=== PATIENT | male | born 1965 | race African-American/Black ===

== ENCOUNTER 2017-01-05 13:30 | Emergency (ER) | payer BC, OTHER ==
[2017-01-05 13:43] VITALS: BP 154/97; PULSE 106; TEMP 98.4; BMI 32.7
[2017-01-05] MEDS ORDERED: KETOROLAC TROMETHAMINE 60 MG/2 ML VIAL IM ONE (14:37)
[2017-01-05] MEDS ORDERED: KETOROLAC TROMETHAMINE 60 MG/2 ML VIAL ONE (14:40)
--- NOTE | 2017-01-05 14:42 | PDOC ---
History of Present Illness - General Chief Complaint: Pain, Acute Stated Complaint: LEG PAIN Time Seen by Provider: 01/05/17 14:18 History Source: Patient Exam Limitations: No Limitations - History of Present Illness Occurred: reports: yesterday Severity: reports: mild, moderate Pain Location: reports: lower extremity (left thigh) Method of Injury: Yes: fall (slipped and stretched posterior aspect ) Loss of Consciousness: no loss of consciousness Past History - Travel Traveled outside of the country in the last 30 days: No Close contact w/someone who was outside of country & ill: No - Past Medical History Allergies/Adverse Reactions: Allergies Allergy/AdvReac Type Severity Reaction Status Date / Time No Known Drug Allergies Allergy Verified 01/05/17 13:40 Home Medications: Ambulatory Orders Aspirin [ASA -] 81 mg PO DAILY 05/27/14 Amlodipine Besylate [Norvasc -] 10 mg PO DAILY tablet 06/03/14 Metoprolol Succinate [Toprol XL -] 25 mg PO BID tab.sr.24h 06/03/14 Sertraline HCl [Zoloft -] 150 mg PO DAILY tablet 06/03/14 Atorvastatin Ca [Lipitor] 20 mg PO HS tablet 08/13/15 Insulin Glargine,Hum.rec.anlog [Toujeo Solostar] 35 unit SQ BID #0 08/13/15 Ciprofloxacin HCl 500 mg PO BID #90 tablet 10/20/15 Vancomycin 1 Gram (Pre-Docked) [Vancomycin (Pre-Docked)] 1,000 mg IVPB Q12H #90 bag 10/20/15 Oxycodone HCl/Acetaminophen [Percocet 5-325 mg Tablet] 1 - 2 tab PO Q4H PRN #14 tablet MDD 6 01/05/17 Anemia: No Asthma: No Cancer: No Cardiac Disorders: No CVA: No COPD: No CHF: No Dementia: No Diabetes: Yes (IDDM) GI Disorders: No Disorders: No HTN: Yes Hypercholesterolemia: Yes Liver Disease: No Seizures: No Thyroid Disease: No Lung CA: No - Surgical History Abdominal Surgery: No Appendectomy: No Cardiac Surgery: No Cholecystectomy: No Lung Surgery: No Neurologic Surgery: No Orthopedic Surgery: Yes (LEFT MIDDLE TOE OSTEOMYELITIS) - Immunization History Td Vaccination: Yes Immunization Up to Date: Yes - Suicide/Smoking/Psychosocial Hx Smoking Status: No Smoking History: Never smoked Have you smoked in the past 12 months: No Number of Cigarettes Smoked Daily: 0 Information on smoking cessation initiated: No Hx Alcohol Use: No Drug/Substance Use Hx: No Substance Use Type: None Hx Substance Use Treatment: No Trauma Specific PMHX - Complaint Specific PMHX Arthritis: Yes Back Injury: Yes Review of Systems - Review of Systems Able to Perform ROS?: Yes Is the patient limited Hungarian proficient: Yes Constitutional: Yes: Symptoms Reported, See HPI. No: Fever, Malaise HEENTM: No: Symptoms Reported Respiratory: No: Symptoms reported Musculoskeletal: Yes: Symptoms Reported, See HPI, Muscle Pain, Joint Stiffness Integumentary: Yes: See HPI. No: Symptoms Reported All Other Systems: Reviewed and Negative *Physical Exam - Vital Signs Last Vital Signs Temp Pulse Resp BP Pulse Ox 98.4 F 106 H 15 154/97 97 01/05/17 13:40 01/05/17 13:40 01/05/17 13:40 01/05/17 13:40 01/05/17 13:40 - Physical Exam General Appearance: Yes: Nourished, Appropriately Dressed, Apparent Distress, Mild Distress, Moderate Distress HEENT: positive: [place], Normal ENT Inspection, TMs Normal, Pharynx Normal Neck: negative: Tender Respiratory/Chest: positive: Lungs Clear Musculoskeletal: positive: Normal Inspection, Decreased Range of Motion (due to pain with extension of left upper posterior thigh, no tension or evidence of compartment syndrome, neurovasc intact to foot ) Extremity: positive: Normal Capillary Refill. negative: Normal Inspection, Normal Range of Motion Integumentary: positive: Normal Color, Dry, Warm. negative: Swelling (no firm/ tenseness to hamstring or muscle belly. 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 Will give 14 Percocet tabs. *DC/Admit/Observation/Transfer Diagnosis at time of Disposition: Hamstring muscle strain Qualifiers: Encounter type: initial encounter Laterality: left Qualified Code(s): S76.312A - Strain of muscle, fascia and tendon of the posterior muscle group at thigh level, left thigh, initial encounter - Discharge Dispostion Disposition: HOME Condition at time of disposition: Stable Admit: No - Referrals Referrals: Benjamin Oneal MD [Primary Care Provider] - - Patient Instructions Printed Discharge Instructions: DI for Hamstring Strain Additional Instructions: Rest, ice to area on and off for 15 minutes 4-6 times a day Avoid heavy lifting or exercise until pain and swelling is resolved or until further directed Keep area highly elevated to reduce swelling Use splints/Daniel wrap as directed Followup with orthopedist in one to 2 days if not improving, if significantly improved may wait one week for followup with orthopedist May use ibuprofen 2-200 mg tablets every 6 hours as needed for pain May use Percocet one or 2 tablets every 6 hours for severe pain as needed - Post Discharge Activity Forms/Work/School Notes: Back to Work
== END 2017-01-05 15:05 | disposition home or self-care (01) ==
LOC: JERFT 13:30
PROC: 3E0233Z Introduction of Anti-inflammatory into Muscle, Percutaneous Approach (ICD-10-PCS; principal; 2017-01-05)
DX: S76.312A Strain of muscle, fascia and tendon of the posterior muscle group at thigh level, left thigh, initial encounter (principal); W01.0XXA Fall on same level from slipping, tripping and stumbling without subsequent striking against object, initial encounter; Y93.79 Activity, other specified sports and athletics; Y92.39 Other specified sports and athletic area as the place of occurrence of the external cause; Y99.8 Other external cause status; I10 Essential (primary) hypertension; E11.9 Type 2 diabetes mellitus without complications; Z79.4 Long term (current) use of insulin; E78.00 Pure hypercholesterolemia, unspecified
CPT/HCPCS: 96372; 99281-25

== ENCOUNTER 2017-01-08 18:49 | Emergency (ER) | payer OTHER ==
[2017-01-08 18:56] VITALS: BP 152/120; PULSE 109; TEMP 97.6; BMI 32.7
--- NOTE | 2017-01-08 19:58 | PDOC ---
History of Present Illness - History of Present Illness Initial Comments: 01/08/17 20:52 Patient is a 51 year old male with a significant past medical history of Peripheral Neuropathy (PAS), HTN, Hyperlipidemia,mrsa wound infections, osteomyelitis,Diabetes Mellitus (Insulin dependent) who presents to the ED s/p fall that occurred 3 days ago. Patient reports fall occurred 3 days [place]. He reports falling on a slippery floor causing him to do a split with his legs, stating that his left leg went forward and right leg backwards. Patient states left leg pain a 20/10 in intensity and is localized behind left thigh and is increased with any kind of stimulus to affected area. He reports experiencing lower left back pain secondary to fall. Patient was seen at [facility] ED on 01/05/17 and was prescribed Percocet and cyclobenzaprine by DISTRICT COURT REPORTER for same pain. Patient states taking percocet and muscle relaxer for pain with no relief. He reports being unable to walk due to left leg pain. Patient denies any current numbness but states affected area was numb after initial fall. Denies Denies chest pain, SOB. Denies fever, chills. Denies nausea, vomiting. Denies dysuria, constipation, diarrhea. Denies any other symptoms. Allergies: None Social history: No smoking. No alcohol. No illicit drugs. FHx: Mother (alcohol) , Heart Disease: Mother Surgical history: Amputation (Left big toe) PMD: Dr. Oneal <Heber Marshall - Last Filed: 01/08/17 21:48> - General History Source: Patient Exam Limitations: No Limitations - History of Present Illness Initial Comments: 01/08/17 19:54 01/08/17 20:20 01/08/17 22:03 Occurred: reports: other (01/05/17) Severity: reports: severe Pain Location: reports: back (left lower back/buttock ), lower extremity (left posterior thigh/ left lower back buttock ) Method of Injury: Yes: fall Loss of Consciousness: no loss of consciousness Associated Symptoms (Fall): trouble walking, other (left lower back/ left buttock pain , left posterior thigh ) <Marina Munson - Last Filed: 01/08/17 22:40> - General Chief Complaint: Injury Stated Complaint: LEG PAIN Time Seen by Provider: 01/08/17 19:42 Past History <Heber Marshall - Last Filed: 01/08/17 21:48> - Past Medical History Anemia: No Asthma: No Cancer: No Cardiac Disorders: No CVA: No COPD: No CHF: No DVT: No Dementia: No Diabetes: Yes (IDDM) GI Disorders: No Disorders: No HTN: Yes Hypercholesterolemia: Yes Liver Disease: No Seizures: No Thyroid Disease: No Lung CA: No - Surgical History Abdominal Surgery: No Appendectomy: No Cardiac Surgery: No Cholecystectomy: No Lung Surgery: No Neurologic Surgery: No Orthopedic Surgery: Yes (LEFT MIDDLE TOE OSTEOMYELITIS) - Immunization History Td Vaccination: Yes Immunization Up to Date: Yes - Suicide/Smoking/Psychosocial Hx Smoking Status: No Smoking History: Never smoked Have you smoked in the past 12 months: No Number of Cigarettes Smoked Daily: 0 Information on smoking cessation initiated: No Hx Alcohol Use: No Drug/Substance Use Hx: No Substance Use Type: None Hx Substance Use Treatment: No <Marina Munson - Last Filed: 01/08/17 22:40> - Past Medical History Allergies/Adverse Reactions: Allergies Allergy/AdvReac Type Severity Reaction Status Date / Time No Known Drug Allergies Allergy Verified 01/08/17 18:51 Home Medications: Ambulatory Orders Aspirin [ASA -] 81 mg PO DAILY 05/27/14 Amlodipine Besylate [Norvasc -] 10 mg PO DAILY tablet 06/03/14 Metoprolol Succinate [Toprol XL -] 25 mg PO BID tab.sr.24h 06/03/14 Sertraline HCl [Zoloft -] 150 mg PO DAILY tablet 06/03/14 Atorvastatin Ca [Lipitor] 20 mg PO HS tablet 08/13/15 Insulin Glargine,Hum.rec.anlog [Tourobert Solostar] 35 unit SQ BID #0 08/13/15 Oxycodone HCl/Acetaminophen [Percocet 5-325 mg Tablet] 1 - 2 tab PO Q4H PRN #14 tablet MDD 6 01/05/17 Cyclobenzaprine HCl [Flexeril 10 mg] 10 mg PO BID PRN #14 tablet 01/06/17 Ibuprofen [Motrin -] 400 mg PO Q6H PRN #18 tablet MDD 4 01/08/17 Trauma Specific PMHX - Complaint Specific PMHX Arthritis: Yes Back Injury: Yes <ArpitMarina manriquez - Last Filed: 01/08/17 22:40> Review of Systems - Review of Systems Able to Perform ROS?: Yes Comments:: 01/08/17 20:52 GENERAL/CONSTITUTIONAL: No fever or chills. No weakness. HEAD, EYES, EARS, NOSE AND THROAT: No change in vision. No ear pain or discharge. No sore throat. GASTROINTESTINAL: No nausea, vomiting, diarrhea or constipation. GENITOURINARY: No dysuria, frequency, or change in urination. CARDIOVASCULAR: No chest pain or shortness of breath. RESPIRATORY: No cough, wheezing, or hemoptysis. MUSCULOSKELETAL: +Left posterior thigh pain. +Left lower back pain. Left buttock pain. No joint or muscle swelling. No neck SKIN: No rash NEUROLOGIC: No headache, vertigo, loss of consciousness, or change in strength/ sensation. ENDOCRINE: No increased thirst. No abnormal weight change. HEMATOLOGIC/LYMPHATIC: No anemia, easy bleeding, or history of blood clots. ALLERGIC/IMMUNOLOGIC: No hives or skin allergy. 01/08/17 21:43 All Other Systems: Reviewed and Negative <Heber Marshall - Last Filed: 01/08/17 21:48> *Physical Exam - Vital Signs Last Vital Signs Temp Pulse Resp BP Pulse Ox 97.6 F 109 H 18 152/120 100 01/08/17 18:51 01/08/17 18:51 01/08/17 18:51 01/08/17 18:51 01/08/17 18:51 - Physical Exam Comments: 01/08/17 20:52 GENERAL: Awake, alert, and fully oriented, in no acute distress HEAD: No signs of trauma EYES: PERRLA, EOMI, sclera anicteric, conjunctiva clear ENT: Auricles normal inspection, hearing grossly normal, nares patent, oropharynx clear without exudates. Moist mucosa NECK: Normal ROM, supple, no lymphadenopathy, JVD, or masses LUNGS: Breath sounds equal, clear to auscultation bilaterally. No wheezes, and no crackles HEART: Regular rate and rhythm, normal S1 and S2, no murmurs, rubs or gallops ABDOMEN: Soft, nontender, normoactive bowel sounds. No guarding, no rebound. No masses EXTREMITIES: +Posterior left thigh pain. +Left lower back pain. +Left buttock pain. Normal range of motion, no edema. No clubbing or cyanosis. No cords, erythema. NEUROLOGICAL: Cranial nerves II through XII grossly intact. Normal speech. SKIN: Warm, Dry, normal turgor, no rashes or lesions noted. <Heber Marshall - Last Filed: 01/08/17 21:48> - Vital Signs Last Vital Signs Temp Pulse Resp BP Pulse Ox 97.6 F 109 H 18 152/120 100 01/08/17 18:51 01/08/17 18:51 01/08/17 18:51 01/08/17 18:51 01/08/17 18:51 <Marina Munson - Last Filed: 01/08/17 22:40> Medical Decision Making - Medical Decision Making 01/08/17 22:05 left posterior thigh strain left lower back strain PLAN: toradol 30 mg IM now 'Patient after approximately 35-45 minutes patient reporting that he was able to move left leg much better extension of his left leg while lying down Patient given instructions to follow up with orthopedist for further evaluation tomorrow and to take ibuprofen 400 mg every 6 hours as needed to start tomorrow. When patient attempted to get into the wheelchair for discharge patient started to complain of pain in his left thigh and lied back down on the stretcher in exam room Acetaminophen 1000 mg by mouth now given (patient only took 2 tabs of Percocet today total of 650 mg of acetaminophen 01/08/17 22:37 01/08/17 22:39 reviewed note by Joni Marshall it was deemed to be accurate <Marina Munson - Last Filed: 01/08/17 22:40> *DC/Admit/Observation/Transfer - Attestations Scribe Attestion: 01/08/17 20:54 Documentation prepared by Heber Marshall, acting as territory sales manager medical for Emergency Dept,Physician, /. <Heber Marshall - Last Filed: 01/08/17 21:48> <Marina Munson - Last Filed: 01/08/17 22:40> Diagnosis at time of Disposition: Strain of other specified muscles, fascia and tendons at thigh level, left thigh, initial encounter Low back strain Qualifiers: Encounter type: subsequent encounter Qualified Code(s): S39.012D - Strain of muscle, fascia and tendon of lower back, subsequent encounter - Discharge Dispostion Disposition: HOME Condition at time of disposition: Stable - Prescriptions Prescriptions: Ibuprofen [Motrin -] 400 mg PO Q6H PRN #18 tablet MDD 4 PRN Reason: Pain - Referrals Referrals: Benjamin Oneal MD [Primary Care Provider] - Torsten Mccarty MD [Staff Physician] - - Patient Instructions Additional Instructions: You may take ibuprofen 200 mg up to 2 tabs every 6 hours as needed for pain along with cyclobenzaprine that was ordered for you on 01/05/2017 Follow up with orthopedist tomorrow for further evaluation as soon as possible You need to try to stretch your left thigh a few times a day Return to emergency room only if pain continues to worsen or new symptoms develop Patient voiced understanding of discharge instructions and all questions were answered - Post Discharge Activity
[2017-01-08] MEDS ORDERED: KETOROLAC TROMETHAMINE 60 MG/2 ML VIAL IM ONE (20:23)
[2017-01-08] MEDS ORDERED: KETOROLAC TROMETHAMINE 30 MG/1 ML VIAL ONE (20:30)
[2017-01-08] MEDS ORDERED: ACETAMINOPHEN 500 MG TABLET (FP) ONE (21:49)
[2017-01-08] MEDS ORDERED: ACETAMINOPHEN 500 MG TABLET (FP) PO ONE (22:02)
== END 2017-01-08 22:25 | disposition home or self-care (01) ==
LOC: JERFT 18:49
PROC: 3E0233Z Introduction of Anti-inflammatory into Muscle, Percutaneous Approach (ICD-10-PCS; principal; 2017-01-08)
DX: S39.012D Strain of muscle, fascia and tendon of lower back, subsequent encounter (principal); S76.812D Strain of other specified muscles, fascia and tendons at thigh level, left thigh, subsequent encounter; W01.0XXD Fall on same level from slipping, tripping and stumbling without subsequent striking against object, subsequent encounter; Y93.89 Activity, other specified; Y92.39 Other specified sports and athletic area as the place of occurrence of the external cause; Y99.8 Other external cause status; I10 Essential (primary) hypertension; E10.9 Type 1 diabetes mellitus without complications; Z79.4 Long term (current) use of insulin; E78.00 Pure hypercholesterolemia, unspecified; Z86.14 Personal history of Methicillin resistant Staphylococcus aureus infection; Z89.412 Acquired absence of left great toe; G62.9 Polyneuropathy, unspecified
CPT/HCPCS: 96372; 99281-25

== ENCOUNTER 2017-02-06 14:24 | Inpatient (IN) | payer OTHER ==
[2017-02-06 15:00] VITALS: BMI 32.7
--- NOTE | 2017-02-06 15:00 | PDOC ---
Rapid Medical Evaluation Time Seen by Provider: 02/06/17 14:48 Medical Evaluation: Allergies Allergy/AdvReac Type Severity Reaction Status Date / Time No Known Drug Allergies Allergy Verified 02/06/17 14:47 02/06/17 14:55 I have performed a brief in-person evaluation of this patient. The patient presents with a chief complaint of: N/V x 4-5 days. No abd pain, f/ c. Also c/o wound to R leg, sees a ehr trainer and currently on abx x several weeks w/ improvement in wound. (don't remember the abx name). H/o IDDM, HTN. F/ u with Dr Oneal Pertinent physical exam findings: Hypertensive, tachycardic and actively vomiting at triage I have ordered the following:labs The patient will proceed to the ED for further evaluation.
[2017-02-06 15:53] LABS: BASO % 1.2 % (0-2.0); EOS % 2.3 % (0-4.5); HEMATOCRIT 35.1 % (35.4-49); HEMOGLOBIN 11.4 GM/dL (11.7-16.9); LYMPH % 28.5 % (8-40); MCH 26.3 pg (25.7-33.7); MCHC 32.5 g/dl (32.0-35.9); MEAN CELL VOLUME 80.8 fl (80-96); MEAN PLT VOLUME 8.5 fl (7.5-11.1); MONO % 6.5 % (3.8-10.2); NEUT % 61.5 % (42.8-82.8); PLATELET COUNT 325 K/MM3 (134-434); RBC 4.34 M/mm3 (4.00-5.60); RDW 14.2 % (11.9-15.9); WHITE BLOOD COUNT 5.7 K/mm3 (4.0-10.0)
[2017-02-06 16:22] LABS: ALBUMIN 3.4 g/dl (3.4-5.0); ANION GAP 11 (8-16); BILIRUBIN,TOTAL 0.6 mg/dL (0.2-1.0); BLOOD UREA NITROGEN 34 mg/dL (7-18); CALCIUM 10.5 mg/dL (8.5-10.1); CHLORIDE 100 mmol/L (98-107); CO2 27 mmol/L (21-32); LIPASE 62 U/L (73-393); POTASSIUM 4.5 mmol/L (3.5-5.1); SGOT/AST 12 U/L (15-37); SGPT/ALT 23 U/L (12-78); SODIUM 138 mmol/L (136-145); TOT PROT 8.1 g/dl (6.4-8.2)
[2017-02-06 16:25] LABS: ALK PHOS 105 U/L (45-117)
[2017-02-06 16:27] LABS: URINE APPEARANCE CLEAR; URINE BILIRUBIN NEGATIVE (NEGATIVE); URINE BLOOD NEGATIVE (NEGATIVE); URINE COLOR YELLOW; URINE GLUCOSE (UA) 3+ (NEGATIVE); URINE KETONE 1+ (NEGATIVE); URINE LEUK ESTERASE NEGATIVE (NEGATIVE); URINE NITRITE NEGATIVE (NEGATIVE); URINE UROBILINOGEN NEGATIVE mg/dL (0.2-1.0)
[2017-02-06 16:39] LABS: GLUCOSE,RANDOM 410 mg/dL (74-106)
[2017-02-06 16:40] LABS: URINE PROTEIN 1+ (NEGATIVE)
[2017-02-06 17:12] LABS: URINE MUCUS RARE
--- NOTE | 2017-02-06 19:05 | PDOC ---
History of Present Illness - General History Source: Patient Exam Limitations: No Limitations - History of Present Illness Initial Comments: 02/06/17 19:40 Patient is a 51 year old male with a significant past medical history of Peripheral Neuropathy (PAS), HTN, Hyperlipidemia, mrsa wound infections, osteomyelitis, Diabetes (insulin dependent), s/p right big toe amputation who presents to the ED with complaints of nausea/vomiting that began this morning. Patient reports experiencing x10 episodes of vomiting today that began this morning while at home. He reports having a infection on his lower right leg but is unsure if that is related to his vomiting. Patient states his blood sugar normally does not run high and states its usually around 100 to 200. Patient reports he currently does not feel any pain while in the ED. Patient appears dehydrated while sitting in the ED. Denies chest pain, SOB. Denies fever, chills. Denies contact with sick individuals, out of state travel. Denies any other symptoms. Allergies: None Social history: No smoking. No alcohol. No illicit drugs. Surgical history: Right big toe amputation. PMD: Dr. Oneal. Wound care: Dr. Fulton <Heber Marshall - Last Filed: 02/06/17 19:40> <Fidelia Harden - Last Filed: 02/06/17 23:33> - General Chief Complaint: Nausea/Vomiting Stated Complaint: THROWING UP Time Seen by Provider: 02/06/17 14:48 Past History <Heber Marshall - Last Filed: 02/06/17 19:40> - Past Medical History Anemia: No Asthma: No Cancer: No Cardiac Disorders: No CVA: No COPD: No CHF: No DVT: No Dementia: No Diabetes: Yes (IDDM) GI Disorders: No Disorders: No HTN: Yes Hypercholesterolemia: Yes Liver Disease: No Seizures: No Thyroid Disease: No Lung CA: No - Surgical History Abdominal Surgery: No Appendectomy: No Cardiac Surgery: No Cholecystectomy: No Lung Surgery: No Neurologic Surgery: No Orthopedic Surgery: Yes (LEFT MIDDLE TOE OSTEOMYELITIS) - Immunization History Td Vaccination: Yes Immunization Up to Date: Yes - Suicide/Smoking/Psychosocial Hx Smoking Status: No Smoking History: Never smoked Have you smoked in the past 12 months: No Number of Cigarettes Smoked Daily: 0 Hx Alcohol Use: No Drug/Substance Use Hx: No Substance Use Type: None Hx Substance Use Treatment: No <Fidelia Harden - Last Filed: 02/06/17 23:33> - Past Medical History Allergies/Adverse Reactions: Allergies Allergy/AdvReac Type Severity Reaction Status Date / Time No Known Drug Allergies Allergy Verified 02/06/17 14:47 Home Medications: Ambulatory Orders Aspirin [ASA -] 81 mg PO DAILY 05/27/14 Amlodipine Besylate [Norvasc -] 10 mg PO DAILY tablet 06/03/14 Metoprolol Succinate [Toprol XL -] 25 mg PO BID tab.sr.24h 06/03/14 Sertraline HCl [Zoloft -] 150 mg PO DAILY tablet 06/03/14 Atorvastatin Ca [Lipitor] 20 mg PO HS tablet 08/13/15 Insulin Glargine,Hum.rec.anlog [Toujeo Solostar] 35 unit SQ BID #0 08/13/15 Oxycodone HCl/Acetaminophen [Percocet 5-325 mg Tablet] 1 - 2 tab PO Q4H PRN #14 tablet MDD 6 01/05/17 Cyclobenzaprine HCl [Flexeril 10 mg] 10 mg PO BID PRN #14 tablet 01/06/17 Ibuprofen [Motrin -] 400 mg PO Q6H PRN #18 tablet MDD 4 01/08/17 Review of Systems - Review of Systems Able to Perform ROS?: Yes Comments:: 02/06/17 19:40 GENERAL/CONSTITUTIONAL: No fever or chills. No weakness. HEAD, EYES, EARS, NOSE AND THROAT: No change in vision. No ear pain or discharge. No sore throat. GASTROINTESTINAL: +Nausea, +Vomiting. No diarrhea or constipation. GENITOURINARY: No dysuria, frequency, or change in urination. CARDIOVASCULAR: No chest pain or shortness of breath. RESPIRATORY: No cough, wheezing, or hemoptysis. MUSCULOSKELETAL: No joint or muscle swelling or pain. No neck or back pain. SKIN: +Right leg wound NEUROLOGIC: No headache, vertigo, loss of consciousness, or change in strength/ sensation. ENDOCRINE: No increased thirst. No abnormal weight change. HEMATOLOGIC/LYMPHATIC: No anemia, easy bleeding, or history of blood clots. ALLERGIC/IMMUNOLOGIC: No hives or skin allergy. All Other Systems: Reviewed and Negative <Heber Marshall - Last Filed: 02/06/17 19:40> *Physical Exam - Vital Signs Last Vital Signs Temp Pulse Resp BP Pulse Ox 98.4 F 114 H 19 158/129 100 02/06/17 14:54 02/06/17 14:54 02/06/17 14:54 02/06/17 14:54 02/06/17 14:54 - Physical Exam Comments: 02/06/17 19:41 GENERAL: Awake, alert, and fully oriented, in no acute distress HEAD: No signs of trauma EYES: PERRLA, EOMI, sclera anicteric, conjunctiva clear ENT: +Dry mucous membrane. Auricles normal inspection, hearing grossly normal, nares patent, oropharynx clear without exudates. NECK: Normal ROM, supple, no lymphadenopathy, JVD, or masses LUNGS: Breath sounds equal, clear to auscultation bilaterally. No wheezes, and no crackles HEART: Regular rate and rhythm, normal S1 and S2, no murmurs, rubs or gallops ABDOMEN: Soft, nontender, normoactive bowel sounds. No guarding, no rebound. No masses EXTREMITIES: +Right lower leg s/p first toe amputation well healed. +3 skin lesion to right lower leg. Normal range of motion, no edema. No clubbing or cyanosis. No cords, erythema, or tenderness NEUROLOGICAL: Cranial nerves II through XII grossly intact. Normal speech, SKIN: +3 skin lesions to right lower leg. +2 skin lesions well healed. +1 skin lesion actively draining. +Surrounding cellulitis. +Drainage of pleural material. No fluctuance. Warm, Dry, normal turgor, no rashes or lesions noted. <Heber Marshall - Last Filed: 02/06/17 19:40> - Vital Signs Last Vital Signs Temp Pulse Resp BP Pulse Ox 98.4 F 114 H 19 158/129 100 02/06/17 14:54 02/06/17 14:54 02/06/17 14:54 02/06/17 14:54 02/06/17 14:54 <Fidelia Harden - Last Filed: 02/06/17 23:33> ED Treatment Course - LABORATORY CBC & Chemistry Diagram: 02/06/17 15:25 02/06/17 15:25 - ADDITIONAL ORDERS Additional order review: Laboratory Results 02/06/17 02/06/17 16:10 15:25 Sodium 138 Potassium 4.5 Chloride 100 Carbon Dioxide 27 Anion Gap 11 BUN 34 H Creatinine 2.0 H D Creat Clearance w eGFR 35.40 Random Glucose 410 H* D Calcium 10.5 H Total Bilirubin 0.6 D AST 12 L ALT 23 Alkaline Phosphatase 105 D Creatine Kinase 120 Troponin I < 0.02 Total Protein 8.1 Albumin 3.4 Lipase 62 L Urine Color Yellow Urine Appearance Clear Urine pH 5.0 Ur Specific [place] 1.029 Urine Protein 1+ H Urine Glucose (UA) 3+ H Urine Ketones 1+ H Urine Blood Negative Urine Nitrite Negative Urine Bilirubin Negative Urine Urobilinogen Negative Urine WBC (Auto) 1 Urine RBC (Auto) 1 Urine Mucus Rare 02/06/17 15:25 RBC 4.34 MCV 80.8 MCHC 32.5 RDW 14.2 MPV 8.5 Neutrophils % 61.5 D Lymphocytes % 28.5 D Monocytes % 6.5 Eosinophils % 2.3 Basophils % 1.2 <Heber Marshall - Last Filed: 02/06/17 19:40> - LABORATORY CBC & Chemistry Diagram: 02/06/17 15:25 02/06/17 15:25 - ADDITIONAL ORDERS Additional order review: Laboratory Results 02/06/17 02/06/17 16:10 15:25 Sodium 138 Potassium 4.5 Chloride 100 Carbon Dioxide 27 Anion Gap 11 BUN 34 H Creatinine 2.0 H D Creat Clearance w eGFR 35.40 Random Glucose 410 H* D Calcium 10.5 H Total Bilirubin 0.6 D AST 12 L ALT 23 Alkaline Phosphatase 105 D Creatine Kinase 120 Troponin I < 0.02 Total Protein 8.1 Albumin 3.4 Lipase 62 L Urine Color Yellow Urine Appearance Clear Urine pH 5.0 Ur Specific [place] 1.029 Urine Protein 1+ H Urine Glucose (UA) 3+ H Urine Ketones 1+ H Urine Blood Negative Urine Nitrite Negative Urine Bilirubin Negative Urine Urobilinogen Negative Urine WBC (Auto) 1 Urine RBC (Auto) 1 Urine Mucus Rare 02/06/17 15:25 RBC 4.34 MCV 80.8 MCHC 32.5 RDW 14.2 MPV 8.5 Neutrophils % 61.5 D Lymphocytes % 28.5 D Monocytes % 6.5 Eosinophils % 2.3 Basophils % 1.2 <Fidelia Harden - Last Filed: 02/06/17 23:33> Medical Decision Making - Medical Decision Making Pt with an open, draining lesion to the R velazquez. He has history of neuropathy and poor circulation, as well as diabetes. He has failed outpatient abx, now presenting with elevated blood glucose and nausea/vomiting. HbA1C pending. Given vanco/zosyn. Wound was cultured in ED prior to abx. <Fidelia Harden - Last Filed: 02/06/17 23:33> *DC/Admit/Observation/Transfer - Attestations Scribe Attestion: 02/06/17 19:41 Documentation prepared by Heber Marshall, acting as medical imaging specialist for Fidelia Harden MD, /DO. <Heber Marshall - Last Filed: 02/06/17 19:40> - Discharge Dispostion Admit: Yes <Fidelia Harden - Last Filed: 02/06/17 23:33> Diagnosis at time of Disposition: Cellulitis, Diabetic ulcer of lower leg - Discharge Dispostion Condition at time of disposition: Stable
[2017-02-06] MEDS ORDERED: PIPERACILLIN/TAZOB 3.375 GM 50 ML IVPB ONE (19:17)
[2017-02-06] MEDS ORDERED: ONDANSETRON 4 MG/2 ML VIAL IVPUSH ONE (19:18)
[2017-02-06] MEDS ORDERED: SODIUM CHLORIDE 3,000 ML IV STA (19:18)
[2017-02-06] MEDS ORDERED: INSULIN REGULAR HUMAN 100 UNITS/ML *VIAL SQ ONE (19:20)
[2017-02-06] MEDS ORDERED: PIPERACILLIN/TAZOB 3.375 GM 3.375 GM/50 ML BAG IVPB ONE (19:38)
[2017-02-06] MEDS ORDERED: ONDANSETRON 4 MG/2 ML VIAL ONE ×2 (19:38→20:36)
[2017-02-06] MEDS ORDERED: VANCOMYCIN 1 GRAM (PRE-DOCKED) 1,000 MG/250 ML BAG IVPB ONE ×2 (20:36→20:37)
[2017-02-06] MEDS ORDERED: INSULIN REGULAR HUMAN 100 UNITS/ML *VIAL ONE (20:36)
--- NOTE | 2017-02-06 21:24 | HP ---
Admitting History and Physical - Primary Care Physician PCP: Benjamin Oneal - Admission Chief Complaint: Nausea and Vomiting History of Present Illness: This is a 51 y/o man with a past medical history of Peripheral Neuropathy, IDDM , MRSA, Diabetic Ulcers. Who presents to the ED with nausea and vomiting x 10 episodes x am. Patient reports having an infection to his right lower leg with yellow drainage that started 1 week ago, in which he is seeing a mastic man and is being treated he has been on ABXs, but does not recall the name of the med. Patient reports his blood sugars are usually between 100-200. He reports that he is compliant with his medications. 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) Cardiovascular: Yes: HTN, Hyperlipdemia Infectious Disease: Yes: MRSA, Other (MRSA wound infections, osteomyelitis ) Psych: Yes: Depression Endocrine: Yes: Diabetes Mellitus - Past Surgical History Past Surgical History: Yes: Amputation - Smoking History Smoking history: Never smoked Have you smoked in the past 12 months: No Aproximately how many cigarettes per day: 0 - Alcohol/Substance Use Hx Alcohol Use: No History of Substance Use: reports: None - Social History History of Recent Travel: No Home Medications - Allergies Allergies/Adverse Reactions: Allergies Allergy/AdvReac Type Severity Reaction Status Date / Time No Known Drug Allergies Allergy Verified 02/06/17 14:47 - Home Medications Home Medications: Ambulatory Orders Aspirin [ASA -] 81 mg PO DAILY 05/27/14 Amlodipine Besylate [Norvasc -] 10 mg PO DAILY tablet 06/03/14 Metoprolol Succinate [Toprol XL -] 25 mg PO BID tab.sr.24h 06/03/14 Sertraline HCl [Zoloft -] 150 mg PO DAILY tablet 06/03/14 Atorvastatin Ca [Lipitor] 20 mg PO HS tablet 08/13/15 Insulin Glargine,Hum.rec.anlog [Kamilah Valdes] 35 unit SQ BID #0 08/13/15 Oxycodone HCl/Acetaminophen [Percocet 5-325 mg Tablet] 1 - 2 tab PO Q4H PRN #14 tablet MDD 6 01/05/17 Cyclobenzaprine HCl [Flexeril 10 mg] 10 mg PO BID PRN #14 tablet 01/06/17 Ibuprofen [Motrin -] 400 mg PO Q6H PRN #18 tablet MDD 4 01/08/17 Family Disease History - Family Disease History Family Disease History: Diabetes: Mother (alcohol), Heart Disease: Mother Review of Systems - Review of Systems Constitutional: reports: No Symptoms Eyes: reports: No Symptoms HENT: reports: No Symptoms Neck: reports: No Symptoms Cardiovascular: reports: No Symptoms Respiratory: reports: No Symptoms Gastrointestinal: reports: Nausea, Vomiting Genitourinary: reports: No Symptoms Breasts: reports: No Symptoms Reported Musculoskeletal: reports: No Symptoms Integumentary: reports: Wound (left leg) Neurological: reports: No Symptoms Endocrine: reports: Increased Thirst Hematology/Lymphatic: reports: No Symptoms Psychiatric: reports: No Symptoms Physical Examination Vital Signs: Vital Signs Temperature 98.4 F 02/06/17 14:54 Pulse Rate 114 H 02/06/17 14:54 Respiratory Rate 19 02/06/17 14:54 Blood Pressure 158/129 02/06/17 14:54 O2 Sat by Pulse Oximetry (%) 100 02/06/17 14:54 Constitutional: Yes: Well Nourished, No Distress, Calm, Obese Eyes: Yes: WNL, Conjunctiva Clear, EOM Intact, PERRL HENT: Yes: WNL, Atraumatic, Normocephalic Neck: Yes: WNL, Supple, Trachea Midline Cardiovascular: Yes: WNL, Regular Rate and Rhythm, S1, S2 Respiratory: Yes: WNL, Regular, CTA Bilaterally Gastrointestinal: Yes: Normal Bowel Sounds, Abdomen, Obese ...Rectal Exam: Yes: Deferred Renal/: Yes: WNL Breast(s): Yes: WNL Musculoskeletal: Yes: WNL Extremities: Yes: WNL Edema: No Peripheral Pulses WNL: Yes Integumentary: Yes: Other (diabetic ulcer with granulation and yellow crusting.) Wound/Incision: Yes: Dressing Dry and Intact (right anterior leg), Other ( amputation r- great toe- surgical scar healed) Neurological: Yes: WNL, Alert, Oriented ...Motor Strength: WNL Psychiatric: Yes: WNL, Alert, Oriented Labs: CBC, BMP 02/06/17 15:25 02/06/17 15:25 Laboratory Results - last 24 hr 02/06/17 02/06/17 02/06/17 15:25 15:25 16:10 WBC 5.7 RBC 4.34 Hgb 11.4 L Hct 35.1 L MCV 80.8 MCH 26.3 MCHC 32.5 RDW 14.2 Plt Count 325 D MPV 8.5 Neutrophils % 61.5 D Lymphocytes % 28.5 D Monocytes % 6.5 Eosinophils % 2.3 Basophils % 1.2 Sodium 138 Potassium 4.5 Chloride 100 Carbon Dioxide 27 Anion Gap 11 BUN 34 H Creatinine 2.0 H D Creat Clearance w eGFR 35.40 POC Glucometer Random Glucose 410 H* D Calcium 10.5 H Total Bilirubin 0.6 D AST 12 L ALT 23 Alkaline Phosphatase 105 D Creatine Kinase 120 Troponin I < 0.02 Total Protein 8.1 Albumin 3.4 Lipase 62 L Urine Color Yellow Urine Appearance Clear Urine pH 5.0 Ur Specific [place] 1.029 Urine Protein 1+ H Urine Glucose (UA) 3+ H Urine Ketones 1+ H Urine Blood Negative Urine Nitrite Negative Urine Bilirubin Negative Urine Urobilinogen Negative Ur Leukocyte Esterase Negative Urine WBC (Auto) 1 Urine RBC (Auto) 1 Urine Mucus Rare 02/06/17 23:47 WBC RBC Hgb Hct MCV MCH MCHC RDW Plt Count MPV Neutrophils % Lymphocytes % Monocytes % Eosinophils % Basophils % Sodium Potassium Chloride Carbon Dioxide Anion Gap BUN Creatinine Creat Clearance w eGFR POC Glucometer [phone] Random Glucose Calcium Total Bilirubin AST ALT Alkaline Phosphatase Creatine Kinase Troponin I Total Protein Albumin Lipase Urine Color Urine Appearance Urine pH Ur Specific [place] Urine Protein Urine Glucose (UA) Urine Ketones Urine Blood Urine Nitrite Urine Bilirubin Urine Urobilinogen Ur Leukocyte Esterase Urine WBC (Auto) Urine RBC (Auto) Urine Mucus Imaging - Results Chest X-ray: Image Reviewed X-ray: Image Reviewed Problem List - Problems (1) Diabetes mellitus, insulin dependent (IDDM), uncontrolled Assessment/Plan: - Likely secondary to infection vs non- compliance - BGM - ISS - HGBA1C- pending - RD - f/u with Endocrinology - Monitor CBC, BMP Code(s): E10.65 - TYPE 1 DIABETES MELLITUS WITH HYPERGLYCEMIA (2) Diabetic ulcer of right lower leg associated with diabetes mellitus due to underlying condition Assessment/Plan: - hx of MRSA - Wound Culture-pending - Blood Cultures-pending - Isolation Precautions - Tib/Fib Xray- image reviewed, pending report - Appreciate ID Consult - Appreciate Vascular Consult - Wound Care Nurse - Continue Zosyn, Vancomycin renal dosing Code(s): E08.622 - DIABETES DUE TO UNDERLYING CONDITION W OTH SKIN ULCER; L97.919 - NON-PRS CHRONIC ULC UNSP PRT OF R LOW LEG W UNSP SEVERITY (3) Diabetic neuropathy Assessment/Plan: - Continue home meds Code(s): E11.40 - TYPE 2 DIABETES MELLITUS WITH DIABETIC NEUROPATHY, UNSP (4) HTN (hypertension) Assessment/Plan: - Not Controlled - Monitor BP - Continue home meds - Monitor renal function Code(s): I10 - ESSENTIAL (PRIMARY) HYPERTENSION (5) Hyperlipidemia LDL goal < 100 Assessment/Plan: - Continue Lipitor - Monitor LFTs Code(s): E78.5 - HYPERLIPIDEMIA, UNSPECIFIED (6) Depression Assessment/Plan: - Continue Zoloft Code(s): F32.9 - MAJOR DEPRESSIVE DISORDER, SINGLE EPISODE, UNSPECIFIED (7) DVT prophylaxis Assessment/Plan: - OOB - Heparin SQ Code(s): SIU2812 - Assessment/Plan This is a 51 y/o man with a PMHx of: Peripheral Neuropathy, IDDM, HTN, HLD, Diabetic Ulcers, MRSA, Depression. Admitted for Uncontrolled Diabetes, Diabetic Ulcer to Right Leg. Plan: FEN - Po fluids - Replete lytes - Diabetic, Low Na Diet Code Status: Full Code Dispo: Requires Inpatient Care Visit type - Emergency Visit Emergency Visit: Yes ED Registration Date: 02/06/17 Care time: The patient presented to the Emergency Department on the above date and was hospitalized for further evaluation of their emergent condition. - New Patient This patient is new to me today: Yes Date on this admission: 02/06/17 - Critical Care Critical Care patient: No
[2017-02-06] MEDS ORDERED: VANCOMYCIN 1,000 MG in DEXTROSE 5%-WATER - 250 ML IVPB SCH (22:00)
[2017-02-06] MEDS ORDERED: INSULIN SLIDING SCALE (NOVOLOG) 1 VIAL SQ SCH (22:00)
[2017-02-07] MEDS ORDERED: METOPROLOL SUCCINATE 25 MG TAB.SR.24H (FP) PO ONE (05:37)
[2017-02-07] MEDS ORDERED: METOPROLOL SUCCINATE 50 MG TAB.SR.24H (FP) ONE (05:43)
[2017-02-07] MEDS ORDERED: PIPERACILLIN/TAZOB 3.375 GM 3.375 GM in DEXTROSE 5%-WATER - 100 ML IVPB ONE (06:00)
[2017-02-07] MEDS ORDERED: PIPERACILLIN/TAZOB 3.375 GM 3.375 GM/50 ML BAG IVPB ONE (06:33)
[2017-02-07] MEDS ORDERED: INSULIN (NOVOLOG) ASPART 100 UNITS/ML 10ML VIAL ONE ×2 (06:33→21:03)
--- NOTE | 2017-02-07 06:40 | HOSP ---
Subjective - Review of Symptoms Events since last encounter: hospitalist encounter Notified by the primary nurse, that the patient reported vomiting x 1 episode, having BM with blood. A/P 51 y/o man admitted with Uncontrolled DM, Right Leg Diabetic Infection Zofran IV now Stool Occult now Finger Stick now Pepcid IV NPO advance Ad Stefany Repeat BP in 1 hr, may need to give IV antihypertensive Gastrointestinal: Yes: Vomiting, Melena Physical Examination Vital Signs: Vital Signs Temperature 99 F 02/07/17 01:00 Pulse Rate 94 H 02/07/17 01:00 Respiratory Rate 19 02/07/17 01:00 Blood Pressure 166/98 02/07/17 01:00 O2 Sat by Pulse Oximetry (%) 99 02/06/17 23:00 Labs: CBC, BMP 02/06/17 15:25 02/06/17 15:25
[2017-02-07] MEDS: HEPARIN NA (PORCINE) 5,000 UNITS/ML 1ML VIAL SQ SCH ×3 (07:08→21:15)
[2017-02-07] MEDS: INSULIN SLIDING SCALE (NOVOLOG) 1 VIAL SQ SCH ×4 (07:08→21:12)
[2017-02-07] MEDS ORDERED: FAMOTIDINE 20 MG/50 ML IVPB 20 MG/50 ML MG IVPB ONE (07:27)
[2017-02-07] MEDS: ONDANSETRON 4 MG/2 ML VIAL IVPUSH PRN ×2 (08:16→21:13)
[2017-02-07] MEDS: FAMOTIDINE IV 20 MG/12 ML VIAL IVPUSH SCH ×3 (08:16→21:46)
[2017-02-07] MEDS ORDERED: amLODIPine BESYLATE 5 MG TABLET (FP) ONE (08:24)
[2017-02-07] MEDS ORDERED: ONDANSETRON 4 MG/2 ML VIAL ONE (08:34)
[2017-02-07 08:54] LABS: AMYLASE 59 U/L (25-115); ANION GAP 8 (8-16); BLOOD UREA NITROGEN 24 mg/dL (7-18); CHLORIDE 109 mmol/L (98-107); CO2 28 mmol/L (21-32); CREATININE 1.5 mg/dL (0.7-1.3); GLUCOSE,RANDOM 138 mg/dL (74-106); LIPASE 69 U/L (73-393); POTASSIUM 3.4 mmol/L (3.5-5.1); SODIUM 145 mmol/L (136-145)
[2017-02-07 09:00] LABS: BASO % 1.1 % (0-2.0); HEMATOCRIT 33.7 % (35.4-49); HEMOGLOBIN 10.7 GM/dL (11.7-16.9); LYMPH % 19.5 % (8-40); MCH 25.4 pg (25.7-33.7); MCHC 31.7 g/dl (32.0-35.9); MEAN CELL VOLUME 80.1 fl (80-96); MONO % 4.3 % (3.8-10.2); NEUT % 73.1 % (42.8-82.8); PLATELET COUNT 302 K/MM3 (134-434); RDW 13.5 % (11.9-15.9); WHITE BLOOD COUNT 8.5 K/mm3 (4.0-10.0)
[2017-02-07] MEDS ORDERED: ACETAMINOPHEN 325 MG TABLET (FP) PO PRN (10:48)
[2017-02-07] MEDS ORDERED: DEXTROSE 50%-WATER - 25 GM/50 ML VIAL IVPUSH PRN (10:48)
--- NOTE | 2017-02-07 10:49 | PN ---
Progress Note, Physician Chief Complaint: Diabetic ulcer, vomiting History of Present Illness: NAD, tired, sleepy - Current Medication List Current Medications: Active Medications Acetaminophen (Tylenol -) 650 mg PO Q4H PRN PRN Reason: FEVER OR PAIN Amlodipine Besylate (Norvasc -) 10 mg PO DAILY [facility] Atorvastatin Calcium (Lipitor -) 20 mg PO HS [facility] Dextrose (D50w (Vial) -) 25 gm IVPUSH PRN PRN PRN Reason: hypoglycemia Heparin Sodium (Porcine) (Heparin -) 5,000 unit SQ TID [facility] Last Admin: 02/07/17 07:08 Dose: 5,000 unit Vancomycin HCl 1,500 mg/ (Dextrose) 500 mls @ 250 mls/hr IVPB Q24H [facility]ON[facility] Famotidine (Pepcid 20 Mg/12 Ml Push) 20 mg in 12 mls @ 144 mls/hr IVPUSH BID [facility] Last Admin: 02/07/17 08:16 Dose: 144 mls/hr Vancomycin HCl 1,500 mg/ (Dextrose) 500 mls @ 250 mls/hr IVPB ONCE ONE Stop: 02/07/17 11:59 Insulin Aspart (Novolog Vial Sliding Scale -) 1 vial SQ ACHS RONNIE PRN Reason: Protocol Last Admin: 02/07/17 07:08 Dose: 4 units Insulin Detemir (Levemir Vial) 35 units SQ HS [facility] Metoprolol Succinate (Toprol Xl -) 25 mg PO BID [facility] Ondansetron HCl (Zofran Injection) 4 mg IVPUSH Q6H PRN PRN Reason: NAUSEA AND/OR VOMITING Last Admin: 02/07/17 08:16 Dose: 4 mg Piperacillin/Tazobactam/Dextrose (Zosyn 3.375gm Ivpb (Premix)) 3.375 gm IVPB Q8H-IV [facility]ONN[facility] Sertraline HCl (Zoloft -) 150 mg PO DAILY [facility] - Objective Vital Signs: Vital Signs Temperature 98.0 F 02/07/17 07:53 Pulse Rate 93 H 02/07/17 07:53 Respiratory Rate 16 02/07/17 07:53 Blood Pressure 175/125 02/07/17 07:53 O2 Sat by Pulse Oximetry (%) 97 02/07/17 07:53 Constitutional: Yes: Well Nourished, No Distress, Calm Cardiovascular: Yes: Regular Rate and Rhythm Respiratory: Yes: Regular Musculoskeletal: Yes: WNL Edema: No Wound/Incision: Yes: Dressing Removed, Draining Neurological: Yes: Alert, Oriented Psychiatric: Yes: Alert, Oriented Labs: CBC, BMP 02/07/17 08:20 02/07/17 08:20 Problem List - Problems (1) Diabetic ulcer of right lower leg associated with diabetes mellitus due to underlying condition Assessment/Plan: -WOund culture pending -IV abx -seen by ID -Wound care/vascular sx consult Code(s): E08.622 - DIABETES DUE TO UNDERLYING CONDITION W OTH SKIN ULCER; L97.919 - NON-PRS CHRONIC ULC UNSP PRT OF R LOW LEG W UNSP SEVERITY (2) Diabetes Assessment/Plan: -Endocrinology consult -A1c at 14.0 -Levemir 35 U BID Code(s): E11.9 - TYPE 2 DIABETES MELLITUS WITHOUT COMPLICATIONS (3) Hypokalemia Assessment/Plan: -PO Kcl -repeat labs in AM Code(s): E87.6 - HYPOKALEMIA (4) SUSANNA (acute kidney injury) Assessment/Plan: -Hydration LR -Nephrology consult Code(s): N17.9 - ACUTE KIDNEY FAILURE, UNSPECIFIED (5) Anemia Assessment/Plan: -Iron profile -thyroid profile -vit b12 -stool OB -anemia of chronic disease -labs in am Code(s): D64.9 - ANEMIA, UNSPECIFIED Assessment/Plan see problem list
[2017-02-07] MEDS: SERTRALINE HCL 50 MG TABLET (FP) PO SCH (11:00)
[2017-02-07] MEDS: amLODIPine BESYLATE 10 MG TABLET (FP) PO SCH (11:00)
--- NOTE | 2017-02-07 11:19 | PN ---
Progress Note (short form) - Note Progress Note: ID Consult dictated Infected R LE ulcer, possible abscess Hx MRSA/ Pseudomonas foot infections / Osteomyelitis IDDM uncontrolled Await blood, wound c/s ESR CRP Surgical evaluation Empiric vancomycin/ zosyn
[2017-02-07] MEDS: VANCOMYCIN 1,500 MG in DEXTROSE 5%-WATER - 500 ML IVPB ONE ×2 (12:00→19:50)
[2017-02-07] MEDS: LACTATED RINGERS SOLUTION 1,000 ML/1,000 ML INFUS.BAG IV SCH (12:01)
[2017-02-07] MEDS: VANCOMYCIN 1,000 MG in DEXTROSE 5%-WATER - 250 ML IVPB SCH (12:30)
--- NOTE | 2017-02-07 14:06 | CONSULT ---
Consult Consult Specialty:: Endocrinology Referred by:: Yuriy Wilson Reason for Consultation:: Hyperglycemia - History of Present Illness Chief Complaint: Nausea vomiting History of Present Illness: This is a 51 year old male with history of T2DM for around 20 years, on Insulin for 6 years, Peripheral Neuropathy (PAS), HTN, Hyperlipidemia, mrsa wound infections, osteomyelitis, Diabetes (insulin dependent), s/p right big toe amputation who presents to the ED with complaints of nausea/vomiting that began this morning. Patient reports experiencing x10 episodes of vomiting today that began this morning while at home. 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 Hasn't been eating much for the last few days b/o GI sympotms. Blood sugar normally does not run high and states its usually around 100 to 200. Lowest in 70s. No hospitaliztion for hypo or hyperglycemia. Takes Toujeo 35 units BID which he hasn't taken for last few days. Denies polyuria, polydipsia or nocturia. Denies any paresthesia of feet. No blurring of vision. Saw ophthalmology last in around July. 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) Cardio/Vascular: Yes: HTN, Hyperlipdemia Infectious Disease: Yes: MRSA, Other (MRSA wound infections, osteomyelitis ) Psych: Yes: Depression Endocrine: Yes: Diabetes Mellitus Additional Medical History: Diabetic left foot ulcer - Past Surgical History Past Surgical History: Yes: Amputation - Alcohol/Substance Use Hx Alcohol Use: No History of Substance Use: reports: None - Smoking History Smoking history: Never smoked Have you smoked in the past 12 months: No Aproximately how many cigarettes per day: 0 - Social History History of Recent Travel: No Home Medications - Allergies Allergies/Adverse Reactions: Allergies Allergy/AdvReac Type Severity Reaction Status Date / Time No Known Drug Allergies Allergy Verified 02/06/17 14:47 - Home Medications Home Medications: Ambulatory Orders Aspirin [ASA -] 81 mg PO DAILY 05/27/14 Amlodipine Besylate [Norvasc -] 10 mg PO DAILY tablet 06/03/14 Metoprolol Succinate [Toprol XL -] 25 mg PO BID tab.sr.24h 06/03/14 Sertraline HCl [Zoloft -] 150 mg PO DAILY tablet 06/03/14 Atorvastatin Ca [Lipitor] 20 mg PO HS tablet 08/13/15 Insulin Glargine,Hum.rec.anlog [Kamilah Mcclainar] 35 unit SQ BID #0 08/13/15 Oxycodone HCl/Acetaminophen [Percocet 5-325 mg Tablet] 1 - 2 tab PO Q4H PRN #14 tablet MDD 6 01/05/17 Cyclobenzaprine HCl [Flexeril 10 mg] 10 mg PO BID PRN #14 tablet 01/06/17 Ibuprofen [Motrin -] 400 mg PO Q6H PRN #18 tablet MDD 4 01/08/17 Family Disease History - Family Disease History Family Disease History: Heart Disease: Mother (alcohol) Other Family History: No family h/o DM Review of Systems - Review of Systems Constitutional: reports: No Symptoms Eyes: reports: No Symptoms HENT: reports: No Symptoms Neck: reports: No Symptoms Cardiovascular: reports: No Symptoms Respiratory: reports: No Symptoms Gastrointestinal: reports: No Symptoms Genitourinary: reports: No Symptoms Musculoskeletal: reports: No Symptoms Integumentary: reports: No Symptoms Neurological: reports: No Symptoms Endocrine: reports: No Symptoms Physical Exam Vital Signs: Vital Signs Temperature 98.0 F 02/07/17 07:53 Pulse Rate 93 H 02/07/17 07:53 Respiratory Rate 16 02/07/17 07:53 Blood Pressure 175/125 02/07/17 07:53 O2 Sat by Pulse Oximetry (%) 97 02/07/17 07:53 Constitutional: Yes: No Distress, Calm Eyes: Yes: Conjunctiva Clear, EOM Intact HENT: Yes: Atraumatic, Normocephalic Neck: Yes: Supple, Trachea Midline Cardiovascular: Yes: Regular Rate and Rhythm Respiratory: Yes: Regular, CTA Bilaterally Gastrointestinal: Yes: Normal Bowel Sounds, Soft Extremities: Yes: Other (Rt leg ulcer, stasis changes both legs s/p rt big toe amputation) Labs: CBC, BMP 02/07/17 08:20 02/07/17 08:20 Imaging - Results X-ray: Report Reviewed (Rt tibia fibula xray report reviewed) Problem List - Problems (1) Diabetic ulcer of right lower leg associated with diabetes mellitus due to underlying condition Code(s): E08.622 - DIABETES DUE TO UNDERLYING CONDITION W OTH SKIN ULCER; L97.919 - NON-PRS CHRONIC ULC UNSP PRT OF R LOW LEG W UNSP SEVERITY Assessment/Plan AP: Rt leg ulcer T2DM HTN HLD Stasis changes of legs Will start with Levemir 12 units BID for now as it is unclear how much he is going to eat and what he was eating at home to require the amount of insulin he did at home Novolog SS coverage Nutrition consult IV Abx
--- NOTE | 2017-02-07 15:59 | PN ---
Progress Note (short form) - Note Progress Note: Vascular Surgery pt seen and examined. Right velazquez ulcer with abscess. Excisional debridement performed of right velazquez -- skin, subcutaneous tissue. Abscess drained -- cx's taken. Santyl to wound daily. Please make pt a wound care appt with me for next week prior to DC. Cecilio ortiz DO
[2017-02-07] MEDS: COLLAGENASE CLOSTRIDIUM HIST. 30 GRAMS TUBE TP SCH (16:00)
--- NOTE | 2017-02-07 17:32 | CONSULT ---
Consult Consult Specialty:: Nephrology Reason for Consultation:: SUSANNA - History of Present Illness Chief Complaint: nausea and vomiting History of Present Illness: Pt is a 51 year old male with pmhx of DM, HTN, chol and MRSA who presents to the ER with nausea and vomiting. He says that he had about 15 episodes of vomiting. He denies chest pain or palpitations. He was found to have susanna and I was called to evaluate him. He denies history of kidney disease. He denies nsaid use. He denies hematuria or dysuria. His renal function is improving with hydration. His glucose was elevated. 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) Cardio/Vascular: Yes: HTN, Hyperlipdemia Infectious Disease: Yes: MRSA, Other (MRSA wound infections, osteomyelitis ) Psych: Yes: Depression Endocrine: Yes: Diabetes Mellitus Additional Medical History: Diabetic left foot ulcer - Past Surgical History Past Surgical History: Yes: Amputation - Alcohol/Substance Use Hx Alcohol Use: No History of Substance Use: reports: None - Smoking History Smoking history: Never smoked Have you smoked in the past 12 months: No Aproximately how many cigarettes per day: 0 - Social History History of Recent Travel: No Home Medications - Allergies Allergies/Adverse Reactions: Allergies Allergy/AdvReac Type Severity Reaction Status Date / Time No Known Drug Allergies Allergy Verified 02/06/17 14:47 - Home Medications Home Medications: Ambulatory Orders Aspirin [ASA -] 81 mg PO DAILY 05/27/14 Amlodipine Besylate [Norvasc -] 10 mg PO DAILY tablet 06/03/14 Metoprolol Succinate [Toprol XL -] 25 mg PO BID tab.sr.24h 06/03/14 Sertraline HCl [Zoloft -] 150 mg PO DAILY tablet 06/03/14 Atorvastatin Ca [Lipitor] 20 mg PO HS tablet 08/13/15 Insulin Glargine,Hum.rec.anlog [Tokwadwo Solostar] 35 unit SQ BID #0 08/13/15 Oxycodone HCl/Acetaminophen [Percocet 5-325 mg Tablet] 1 - 2 tab PO Q4H PRN #14 tablet MDD 6 01/05/17 Cyclobenzaprine HCl [Flexeril 10 mg] 10 mg PO BID PRN #14 tablet 01/06/17 Ibuprofen [Motrin -] 400 mg PO Q6H PRN #18 tablet MDD 4 01/08/17 Family Disease History - Family Disease History Family Disease History: Heart Disease: Mother (alcohol) Other Family History: No family h/o DM Review of Systems - Review of Systems Constitutional: reports: Chills, Malaise Eyes: reports: No Symptoms HENT: reports: No Symptoms Neck: reports: No Symptoms Cardiovascular: reports: No Symptoms Respiratory: reports: No Symptoms Gastrointestinal: reports: Nausea, Vomiting Genitourinary: reports: No Symptoms Musculoskeletal: reports: No Symptoms Integumentary: reports: No Symptoms Neurological: reports: No Symptoms Endocrine: reports: No Symptoms Hematology/Lymphatic: reports: No Symptoms Physical Exam Vital Signs: Vital Signs Temperature 98.2 F 02/07/17 13:00 Pulse Rate 92 H 02/07/17 13:00 Respiratory Rate 18 02/07/17 13:00 Blood Pressure 145/83 02/07/17 13:00 O2 Sat by Pulse Oximetry (%) 97 02/07/17 07:53 Constitutional: Yes: Calm Eyes: Yes: Conjunctiva Clear HENT: Yes: Atraumatic Neck: Yes: Supple Cardiovascular: Yes: S1, S2 Respiratory: Yes: CTA Bilaterally Gastrointestinal: Yes: Soft Renal/: Yes: WNL Musculoskeletal: Yes: WNL Edema: No Integumentary: Yes: Erythema Wound/Incision: Yes: Open to air Neurological: Yes: Oriented Psychiatric: Yes: Oriented Labs: CBC, BMP 02/07/17 08:20 02/07/17 08:20 Laboratory Tests 02/06/17 02/06/17 02/06/17 15:18 15:25 15:25 WBC Hgb 11.4 L Creatinine 2.0 H D Random Glucose 410 H* D Hemoglobin A1c % 14.0 H D Calcium 10.5 H Urine Color Urine Appearance Urine Protein Urine Glucose (UA) Urine Ketones Urine Blood 02/06/17 02/07/17 02/07/17 16:10 08:20 08:20 WBC 8.5 D Hgb 10.7 L Creatinine 1.5 H D Random Glucose 138 H D Hemoglobin A1c % Calcium 10.0 Urine Color Yellow Urine Appearance Clear Urine Protein 1+ H Urine Glucose (UA) 3+ H Urine Ketones 1+ H Urine Blood Negative Imaging - Results Chest X-ray: Report Reviewed Problem List - Problems (1) SUSANNA (acute kidney injury) Code(s): N17.9 - ACUTE KIDNEY FAILURE, UNSPECIFIED (2) Anemia Code(s): D64.9 - ANEMIA, UNSPECIFIED (3) Diabetic ulcer of right lower leg associated with diabetes mellitus due to underlying condition Code(s): E08.622 - DIABETES DUE TO UNDERLYING CONDITION W OTH SKIN ULCER; L97.919 - NON-PRS CHRONIC ULC UNSP PRT OF R LOW LEG W UNSP SEVERITY (4) Diabetes Code(s): E11.9 - TYPE 2 DIABETES MELLITUS WITHOUT COMPLICATIONS Assessment/Plan Current Medications Generic Name Dose Route Start Last Admin Trade Name Freq PRN Reason Stop Dose Admin Acetaminophen 650 mg 02/07/17 10:48 Tylenol - PO Q4H PRN FEVER OR PAIN Amlodipine Besylate 10 mg 02/07/17 10:00 Norvasc - PO DAILY R[facility] Atorvastatin Calcium 20 mg 02/07/17 22:00 Lipitor - PO HS RONNIE Collagenase 1 applic 02/07/17 16:00 Santyl - TP DAILY [facility] Dextrose 25 gm 02/07/17 10:48 D50w (Vial) - IVPUSH PRN PRN hypoglycemia Heparin Sodium (Porcine) 5,000 unit 02/07/17 06:15 02/07/17 07:08 Heparin - SQ 5,000 unit TID RONNIE Administration Famotidine 20 mg in 12 mls @ 144 mls/hr 02/07/17 06:31 02/07/17 11:43 Pepcid 20 Mg/12 Ml Push IVPUSH Not Given BID RONNIE Lactated Ringer's 1,000 ml in 1,000 mls @ 75 mls/hr 02/07/17 11:00 02/07/17 12:01 Lactated Ringers Solution IV 75 mls/hr ASDIR RONNIE Administration Piperacillin Sod/Tazobactam 100 mls @ 200 mls/hr 02/07/17 18:00 Sod 3.375 gm/ Dextrose IVPB Q8H-IV [facility] Protocol Vancomycin HCl 1,000 mg/ 250 mls @ 200 mls/hr 02/07/17 12:00 Dextrose IVPB DAILY@1200 [facility] Insulin Aspart 1 vial 02/07/17 22:00 Novolog Vial Sliding Scale - SQ HS RON[facility] Protocol Insulin Aspart 1 vial 02/07/17 16:30 Novolog Vial Sliding Scale - SQ TIDAC [facility] Protocol Insulin Detemir 12 units 02/07/17 22:00 Levemir Vial SQ BID@0700,2200 [facility] Metoprolol Succinate 25 mg 02/07/17 22:00 Toprol Xl - PO BID [facility] Ondansetron HCl 4 mg 02/07/17 06:30 02/07/17 08:16 Zofran Injection IVPUSH 4 mg Q6H PRN Administration NAUSEA AND/OR VOMITING Sertraline HCl 150 mg 02/07/17 10:00 Zoloft - PO DAILY [facility] Laboratory Tests 02/07/17 08:20 Potassium 3.4 L D Impression 1. SUSANNA 2. DM uncontrolled 3. DFU 4. vomiting 5. HTN 6. peripheral neuropathy 7. hypokalemia Plan - cont fluids - likely pre-renal disease - repeat labs in am - will need better glucose control - replace potassium - abx per ID - will follow Dr Mata
[2017-02-07] MEDS ORDERED: POTASSIUM CHLORIDE TABS 20 MEQ TABLET.ER (FP) PO ONE (18:00)
[2017-02-07] MEDS ORDERED: PT OWN MED DRAWER 7, Y5N ONE ×2 (18:50→21:05)
[2017-02-07] MEDS: PIPERACILLIN/TAZOB 3.375 GM 3.375 GM in DEXTROSE 5%-WATER - 100 ML IVPB SCH (18:51)
[2017-02-07] MEDS: PIPERACIL/TAZOB 3.375 GM 3.375 GM/50 ML PREMIX IVPB SCH (19:50)
[2017-02-07] MEDS: INSULIN DETEMIR 100 UNITS/ML MDV SQ SCH (21:12)
[2017-02-07] MEDS: ATORVASTATIN CA 20 MG TABLET (FP) PO SCH (21:12)
[2017-02-07] MEDS: METOPROLOL SUCCINATE 25 MG TAB.SR.24H (FP) PO SCH (21:15)
[2017-02-07] MEDS ORDERED: INSULIN DETEMIR 100 UNITS/ML MDV SQ SCH ×2 (22:00)
[2017-02-08] MEDS ORDERED: PT OWN MED DRAWER 7, Y5N ONE ×3 (01:24→22:10)
[2017-02-08] MEDS: PIPERACILLIN/TAZOB 3.375 GM 3.375 GM in DEXTROSE 5%-WATER - 100 ML IVPB SCH ×3 (01:33→17:56)
[2017-02-08] MEDS: HEPARIN NA (PORCINE) 5,000 UNITS/ML 1ML VIAL SQ SCH ×3 (05:52→22:21)
[2017-02-08] MEDS: INSULIN SLIDING SCALE (NOVOLOG) 1 VIAL SQ SCH ×6 (06:10→22:21)
[2017-02-08] MEDS ORDERED: INSULIN (NOVOLOG) ASPART 100 UNITS/ML 10ML VIAL ONE (06:19)
[2017-02-08] MEDS: INSULIN DETEMIR 100 UNITS/ML MDV SQ SCH ×2 (06:21→22:20)
[2017-02-08 07:45] LABS: BASO % 0.9 % (0-2.0); EOS % 4.3 % (0-4.5); HEMATOCRIT 35.1 % (35.4-49); HEMOGLOBIN 11.1 GM/dL (11.7-16.9); LYMPH % 26.6 % (8-40); MCH 25.4 pg (25.7-33.7); MCHC 31.6 g/dl (32.0-35.9); MEAN CELL VOLUME 80.6 fl (80-96); MONO % 6.7 % (3.8-10.2); NEUT % 61.5 % (42.8-82.8); PLATELET COUNT 316 K/MM3 (134-434); RBC 4.35 M/mm3 (4.00-5.60); RDW 14.3 % (11.9-15.9); WHITE BLOOD COUNT 8.2 K/mm3 (4.0-10.0)
[2017-02-08 08:46] LABS: ANION GAP 9 (8-16); BLOOD UREA NITROGEN 17 mg/dL (7-18); CALCIUM 9.9 mg/dL (8.5-10.1); CHLORIDE 106 mmol/L (98-107); CO2 30 mmol/L (21-32); GLUCOSE,RANDOM 115 mg/dL (74-106); POTASSIUM 3.4 mmol/L (3.5-5.1); SGOT/AST 20 U/L (15-37); SGPT/ALT 23 U/L (12-78); SODIUM 145 mmol/L (136-145)
[2017-02-08 08:50] LABS: ALK PHOS 95 U/L (45-117); BILIRUBIN,TOTAL 0.4 mg/dL (0.2-1.0); CREATININE 1.6 mg/dL (0.7-1.3); TOT PROT 7.1 g/dl (6.4-8.2)
[2017-02-08 08:54] LABS: MAGNESIUM 1.7 mg/dL (1.8-2.4)
[2017-02-08] MEDS: SERTRALINE HCL 50 MG TABLET (FP) PO SCH (09:23)
[2017-02-08] MEDS: COLLAGENASE CLOSTRIDIUM HIST. 30 GRAMS TUBE TP SCH (09:23)
[2017-02-08] MEDS: amLODIPine BESYLATE 10 MG TABLET (FP) PO SCH (09:24)
[2017-02-08] MEDS: FAMOTIDINE IV 20 MG/12 ML VIAL IVPUSH SCH ×2 (09:36→22:20)
[2017-02-08] MEDS: METOPROLOL SUCCINATE 25 MG TAB.SR.24H (FP) PO SCH ×2 (09:36→22:22)
[2017-02-08] MEDS ORDERED: VANCOMYCIN 1,500 MG in DEXTROSE 5%-WATER - 500 ML IVPB SCH (10:00)
[2017-02-08] MEDS ORDERED: MAGNESIUM OXIDE 400 MG TABLET (FP) PO SCH (10:15)
[2017-02-08] MEDS ORDERED: POTASSIUM CHLORIDE TABS 20 MEQ TABLET.ER (FP) PO SCH (10:15)
[2017-02-08] MEDS ORDERED: METHIMAZOLE 5 MG TABLET (FP) PO SCH (10:15)
--- NOTE | 2017-02-08 10:19 | PN ---
Progress Note, Physician Chief Complaint: Diabetic ulcer, vomiting History of Present Illness: NAD, tired, sleepy IV abx seen by Vascular, bedside debridement done, ordered santyl seen by endocrinology for better glycemic control mildly hyperthyroid with low TSH and elevated FT4 seen by Nephrology- Potassium replaced, on IVF LR to avoid metabolic acidosis - Current Medication List Current Medications: Active Medications Acetaminophen (Tylenol -) 650 mg PO Q4H PRN PRN Reason: FEVER OR PAIN Amlodipine Besylate (Norvasc -) 10 mg PO DAILY [facility] Last Admin: 02/08/17 09:24 Dose: 10 mg Atorvastatin Calcium (Lipitor -) 20 mg PO HS [facility] Last Admin: 02/07/17 21:12 Dose: 20 mg Collagenase (Santyl -) 1 applic TP DAILY [facility] Last Admin: 02/08/17 09:23 Dose: 1 applic Dextrose (D50w (Vial) -) 25 gm IVPUSH PRN PRN PRN Reason: hypoglycemia Heparin Sodium (Porcine) (Heparin -) 5,000 unit SQ TID [facility] Last Admin: 02/08/17 05:52 Dose: 5,000 unit Lactated Ringer's (Lactated Ringers Solution) 1,000 ml in 1,000 mls @ 75 mls/ hr IV ASDIR [facility] Last Admin: 02/07/17 12:01 Dose: 75 mls/hr Piperacillin Sod/Tazobactam (Sod 3.375 gm/ Dextrose) 100 mls @ 200 mls/hr IVPB Q8H-IV [facility]ONNIE PRN Reason: Protocol Last Admin: 02/08/17 09:22 Dose: 200 mls/hr Vancomycin HCl 1,000 mg/ (Dextrose) 250 mls @ 200 mls/hr IVPB DAILY@1200 [facility] Last Admin: 02/07/17 12:30 Dose: 200 mls/hr Famotidine (Pepcid 20 Mg/12 Ml Push) 20 mg in 12 mls @ 144 mls/hr IVPUSH BID [facility] Last Admin: 02/08/17 09:36 Dose: 144 mls/hr Insulin Aspart (Novolog Vial Sliding Scale -) 1 vial SQ HS RONNIE PRN Reason: Protocol Last Admin: 02/07/17 21:12 Dose: 6 unit Insulin Aspart (Novolog Vial Sliding Scale -) 1 vial SQ TIDAC [facility] PRN Reason: Protocol Last Admin: 02/08/17 06:10 Dose: Not Given Insulin Detemir (Levemir Vial) 12 units SQ BID@0700,2200 [facility] Last Admin: 02/08/17 06:21 Dose: 12 unit Magnesium Oxide (Mag-Ox -) 400 mg PO BID [facility] Methimazole (Tapazole -) 5 mg PO DAILY [facility] Metoprolol Succinate (Toprol Xl -) 25 mg PO BID [facility] Last Admin: 02/08/17 09:36 Dose: 25 mg Ondansetron HCl (Zofran Injection) 4 mg IVPUSH Q6H PRN PRN Reason: NAUSEA AND/OR VOMITING Last Admin: 02/07/17 21:13 Dose: 4 mg Potassium Chloride (K-Dur -) 40 meq PO DAILY [facility] Sertraline HCl (Zoloft -) 150 mg PO DAILY [facility] Last Admin: 02/08/17 09:23 Dose: 150 mg - Objective Vital Signs: Vital Signs Temperature 98.1 F 02/08/17 05:52 Pulse Rate 74 02/08/17 05:52 Respiratory Rate 18 02/08/17 05:52 Blood Pressure 156/97 02/08/17 05:52 O2 Sat by Pulse Oximetry (%) 100 02/07/17 21:00 Constitutional: Yes: Well Nourished, No Distress, Calm Cardiovascular: Yes: Regular Rate and Rhythm Respiratory: Yes: Regular Gastrointestinal: Yes: Normal Bowel Sounds Musculoskeletal: Yes: WNL Edema: No Peripheral Pulses WNL: Yes Wound/Incision: Yes: Dressing Dry and Intact Neurological: Yes: Alert, Oriented Psychiatric: Yes: Alert, Oriented Labs: CBC, BMP 02/08/17 06:30 02/08/17 06:30 Problem List - Problems (1) Diabetic ulcer of right lower leg associated with diabetes mellitus due to underlying condition Assessment/Plan: -Wound culture pending -IV abx -seen by ID -Wound care/vascular sx consult Code(s): E08.622 - DIABETES DUE TO UNDERLYING CONDITION W OTH SKIN ULCER; L97.919 - NON-PRS CHRONIC ULC UNSP PRT OF R LOW LEG W UNSP SEVERITY (2) Diabetes Assessment/Plan: -Endocrinology consult -A1c at 14.0 -Levemir 12 U BID -Novolog sliding scale Code(s): E11.9 - TYPE 2 DIABETES MELLITUS WITHOUT COMPLICATIONS (3) Hypokalemia Assessment/Plan: -PO Kcl daily -repeat labs in AM Code(s): E87.6 - HYPOKALEMIA (4) SUSANNA (acute kidney injury) Assessment/Plan: -Hydration LR -Nephrology consult Code(s): N17.9 - ACUTE KIDNEY FAILURE, UNSPECIFIED (5) Anemia Assessment/Plan: -Iron profile pending -thyroid profile shows hyperthyroidism -vit b12 normal -stool OB pending -likely anemia of chronic disease -labs in am Code(s): D64.9 - ANEMIA, UNSPECIFIED (6) Hyperthyroidism Assessment/Plan: -methimazole 5 mg po daily Code(s): E05.90 - THYROTOXICOSIS, UNSP WITHOUT THYROTOXIC CRISIS OR STORM Assessment/Plan see problem list
--- NOTE | 2017-02-08 12:46 | PN ---
Progress Note, Physician History of Present Illness: S/P debridemnt of R LE infected ulcer/ abscess No c/o pain Reports + N/V No c/o fever/ chills Afebrile WBC 8.2 Wound c/s Staph aureus (?MRSA), Pseudomonas - Current Medication List Current Medications: Active Medications Acetaminophen (Tylenol -) 650 mg PO Q4H PRN PRN Reason: FEVER OR PAIN Amlodipine Besylate (Norvasc -) 10 mg PO DAILY [facility] Last Admin: 02/08/17 09:24 Dose: 10 mg Atorvastatin Calcium (Lipitor -) 20 mg PO HS [facility] Last Admin: 02/07/17 21:12 Dose: 20 mg Collagenase (Santyl -) 1 applic TP DAILY [facility] Last Admin: 02/08/17 09:23 Dose: 1 applic Dextrose (D50w (Vial) -) 25 gm IVPUSH PRN PRN PRN Reason: hypoglycemia Heparin Sodium (Porcine) (Heparin -) 5,000 unit SQ TID [facility] Last Admin: 02/08/17 05:52 Dose: 5,000 unit Lactated Ringer's (Lactated Ringers Solution) 1,000 ml in 1,000 mls @ 75 mls/ hr IV ASDIR [facility] Last Admin: 02/07/17 12:01 Dose: 75 mls/hr Piperacillin Sod/Tazobactam (Sod 3.375 gm/ Dextrose) 100 mls @ 200 mls/hr IVPB Q8H-IV [facility]ONNIE PRN Reason: Protocol Last Admin: 02/08/17 09:22 Dose: 200 mls/hr Vancomycin HCl 1,000 mg/ (Dextrose) 250 mls @ 200 mls/hr IVPB DAILY@1200 [facility] Last Admin: 02/07/17 12:30 Dose: 200 mls/hr Famotidine (Pepcid 20 Mg/12 Ml Push) 20 mg in 12 mls @ 144 mls/hr IVPUSH BID [facility] Last Admin: 02/08/17 09:36 Dose: 144 mls/hr Insulin Aspart (Novolog Vial Sliding Scale -) 1 vial SQ HS [facility] PRN Reason: Protocol Last Admin: 02/07/17 21:12 Dose: 6 unit Insulin Aspart (Novolog Vial Sliding Scale -) 1 vial SQ TIDAC [facility] PRN Reason: Protocol Last Admin: 02/08/17 06:10 Dose: Not Given Insulin Detemir (Levemir Vial) 12 units SQ BID@0700,2200 [facility] Last Admin: 02/08/17 06:21 Dose: 12 unit Magnesium Oxide (Mag-Ox -) 400 mg PO BID [facility] Methimazole (Tapazole -) 5 mg PO DAILY [facility] Metoprolol Succinate (Toprol Xl -) 25 mg PO BID [facility] Last Admin: 02/08/17 09:36 Dose: 25 mg Ondansetron HCl (Zofran Injection) 4 mg IVPUSH Q6H PRN PRN Reason: NAUSEA AND/OR VOMITING Last Admin: 02/07/17 21:13 Dose: 4 mg Potassium Chloride (K-Dur -) 40 meq PO DAILY [facility] Sertraline HCl (Zoloft -) 150 mg PO DAILY [facility] Last Admin: 02/08/17 09:23 Dose: 150 mg - Objective Vital Signs: Vital Signs Temperature 98.1 F 02/08/17 05:52 Pulse Rate 74 02/08/17 05:52 Respiratory Rate 18 02/08/17 05:52 Blood Pressure 156/97 02/08/17 05:52 O2 Sat by Pulse Oximetry (%) 100 02/07/17 21:00 Constitutional: Yes: No Distress, Other Cardiovascular: Yes: Regular Rate and Rhythm, S1, S2 Respiratory: Yes: CTA Bilaterally Gastrointestinal: Yes: Normal Bowel Sounds, Soft. No: Tenderness Extremities: Yes: Other (S/P I&D R LE abscess) Labs: CBC, BMP 02/08/17 06:30 02/08/17 06:30 Assessment/Plan Infected R LE ulcer/ abscess Diabetes mellitus Await cultures Continue vancomycin/ zosyn
--- NOTE | 2017-02-08 12:52 | PN ---
Progress Note (short form) - Note Progress Note: Vomited once today Has not been eating much Blood sugar acceptable Vital Signs Period Temp Pulse Resp BP Sys/Gilmore Pulse Ox Last 24 Hr 97 F-98.2 F 74-94 18-20 141-166/83-98 100 PE; AOx3 Neck: Supple, No JVD HEENT: EOMI Lungs: CTA CVS: S1S2 Abd: Benign, + BS EXt: Rt let dressing, Stasis changes of legs Neuro: No focal deficit CMP Sodium 145 mmol/L (136-145) 02/08/17 06:30 Potassium 3.4 mmol/L (3.5-5.1) L 02/08/17 06:30 Chloride 106 mmol/L (98-107) 02/08/17 06:30 Carbon Dioxide 30 mmol/L (21-32) 02/08/17 06:30 Anion Gap 9 (8-16) 02/08/17 06:30 BUN 17 mg/dL (7-18) D 02/08/17 06:30 Creatinine 1.6 mg/dL (0.7-1.3) H 02/08/17 06:30 Creat Clearance w eGFR 45.80 (>60) 02/08/17 06:30 POC Glucometer 153 UNITS (80-120) 02/08/17 11:12 Random Glucose 115 mg/dL (74-106) H 02/08/17 06:30 Hemoglobin A1c % 14.0 % (4.8-6.0) H D 02/06/17 15:18 Calcium 9.9 mg/dL (8.5-10.1) 02/08/17 06:30 Magnesium 1.7 mg/dL (1.8-2.4) L 02/08/17 06:30 Ferritin 307.520 ng/ml (16.4-293.9) H 02/08/17 06:30 Total Bilirubin 0.4 mg/dL (0.2-1.0) D 02/08/17 06:30 AST 20 U/L (15-37) D 02/08/17 06:30 ALT 23 U/L (12-78) 02/08/17 06:30 Alkaline Phosphatase 95 U/L (45-117) 02/08/17 06:30 Creatine Kinase 120 IU/L (39-308) 02/06/17 15:25 Troponin I < 0.02 ng/ml (0.00-0.05) 02/06/17 15:25 C-Reactive Protein 1.9 MG/DL (0.00-0.3) H D 02/08/17 06:30 Total Protein 7.1 g/dl (6.4-8.2) 02/08/17 06:30 Albumin 3.0 g/dl (3.4-5.0) L 02/08/17 06:30 Triglycerides 99 mg/dL (35-160) 02/08/17 06:30 Cholesterol 131 mg/dL (50-200) D 02/08/17 06:30 Total LDL Cholesterol 67 mg/dL (5-100) D 02/08/17 06:30 HDL Cholesterol 48 mg/dL (40-60) 02/08/17 06:30 Total Amylase 59 U/L (25-115) 02/07/17 08:20 Lipase 69 U/L (73-393) L 02/07/17 08:20 Vitamin B12 884 pg/ml (180-914) D 02/08/17 06:30 TSH 0.16 uIU/ml (0.358-3.74) L D 02/08/17 06:30 Free T4 1.18 ng/dl (0.76-1.16) H 02/08/17 06:30 Current Medications Generic Name Dose Route Start Last Admin Trade Name Freq PRN Reason Stop Dose Admin Acetaminophen 650 mg 02/07/17 10:48 Tylenol - PO Q4H PRN FEVER OR PAIN Amlodipine Besylate 10 mg 02/07/17 10:00 02/08/17 09:24 Norvasc - PO 10 mg DAILY [facility]ON[facility] Administration Atorvastatin Calcium 20 mg 02/07/17 22:00 02/07/17 21:12 Lipitor - PO 20 mg HS RONNIE Administration Collagenase 1 applic 02/07/17 16:00 02/08/17 09:23 Santyl - TP 1 applic DAILY [facility] Administration Dextrose 25 gm 02/07/17 10:48 D50w (Vial) - IVPUSH PRN PRN hypoglycemia Heparin Sodium (Porcine) 5,000 unit 02/07/17 06:15 02/08/17 05:52 Heparin - SQ 5,000 unit TID RONNIE Administration Lactated Ringer's 1,000 ml in 1,000 mls @ 75 mls/hr 02/07/17 11:00 02/07/17 12:01 Lactated Ringers Solution IV 75 mls/hr ASDIR RONNIE Administration Piperacillin Sod/Tazobactam 100 mls @ 200 mls/hr 02/07/17 18:00 02/08/17 09: 22 Sod 3.375 gm/ Dextrose IVPB 200 mls/hr Q8H-IV RONNIE Administration Protocol Vancomycin HCl 1,000 mg/ 250 mls @ 200 mls/hr 02/07/17 12:00 02/07/17 12:30 Dextrose IVPB 200 mls/hr DAILY@1200 [facility]ON[facility]IE Administration Famotidine 20 mg in 12 mls @ 144 mls/hr 02/07/17 21:20 02/08/17 09:36 Pepcid 20 Mg/12 Ml Push IVPUSH 144 mls/hr BID [facility]ONNIE Administration Insulin Aspart 1 vial 02/07/17 22:00 02/07/17 21:12 Novolog Vial Sliding Scale - SQ 6 unit HS RONNIE Administration Protocol Insulin Aspart 1 vial 02/07/17 16:30 02/08/17 06:10 Novolog Vial Sliding Scale - SQ Not Given TIDAC COUNT INCLUDES [facility] Protocol Insulin Detemir 12 units 02/07/17 22:00 02/08/17 06:21 Levemir Vial SQ 12 unit BID@0700,2200 [facility] Administration Magnesium Oxide 400 mg 02/08/17 10:15 Mag-Ox - PO BID [facility] Methimazole 5 mg 02/08/17 10:15 Tapazole - PO DAILY [facility] Metoprolol Succinate 25 mg 02/07/17 22:00 02/08/17 09:36 Toprol Xl - PO 25 mg BID [facility] Administration Ondansetron HCl 4 mg 02/07/17 06:30 02/07/17 21:13 Zofran Injection IVPUSH 4 mg Q6H PRN Administration NAUSEA AND/OR VOMITING Potassium Chloride 40 meq 02/08/17 10:15 K-Dur - PO DAILY [facility] Sertraline HCl 150 mg 02/07/17 10:00 02/08/17 09:23 Zoloft - PO 150 mg DAILY [facility] Administration AP: Rt leg ulcer T2DM HTN HLD Stasis changes of legs ?Gastroparesis: Consider GI consult Subclinical Hyperthyroidism: TSH 0.16 with FT4 of 1.16, Not sure if the FT4 level is really high Will repeat TFT with FT3, TPO, TSI Continue Levemir 12 units BID for now as it is unclear how much he is going to eat and what he was eating at home to require the amount of insulin he did at home Novolog SS coverage Nutrition consult IV Abx Problem List - Problems (1) Diabetic ulcer of right lower leg associated with diabetes mellitus due to underlying condition Code(s): E08.622 - DIABETES DUE TO UNDERLYING CONDITION W OTH SKIN ULCER; L97.919 - NON-PRS CHRONIC ULC UNSP PRT OF R LOW LEG W UNSP SEVERITY
[2017-02-08] MEDS: VANCOMYCIN 1,000 MG in DEXTROSE 5%-WATER - 250 ML IVPB SCH (13:00)
[2017-02-08] MEDS: LACTATED RINGERS SOLUTION 1,000 ML/1,000 ML INFUS.BAG IV SCH (15:33)
--- NOTE | 2017-02-08 16:01 | PN ---
Progress Note, Physician History of Present Illness: Pt seen and examined at bedside. He is awake and alert. He still has vomiting. - Current Medication List Current Medications: Active Medications Acetaminophen (Tylenol -) 650 mg PO Q4H PRN PRN Reason: FEVER OR PAIN Amlodipine Besylate (Norvasc -) 10 mg PO DAILY [facility] Last Admin: 02/08/17 09:24 Dose: 10 mg Atorvastatin Calcium (Lipitor -) 20 mg PO HS [facility] Last Admin: 02/07/17 21:12 Dose: 20 mg Collagenase (Santyl -) 1 applic TP DAILY [facility] Last Admin: 02/08/17 09:23 Dose: 1 applic Dextrose (D50w (Vial) -) 25 gm IVPUSH PRN PRN PRN Reason: hypoglycemia Heparin Sodium (Porcine) (Heparin -) 5,000 unit SQ TID [facility] Last Admin: 02/08/17 05:52 Dose: 5,000 unit Lactated Ringer's (Lactated Ringers Solution) 1,000 ml in 1,000 mls @ 75 mls/ hr IV ASDIR [facility] Last Admin: 02/08/17 15:33 Dose: 75 mls/hr Piperacillin Sod/Tazobactam (Sod 3.375 gm/ Dextrose) 100 mls @ 200 mls/hr IVPB Q8H-IV RONNIE PRN Reason: Protocol Last Admin: 02/08/17 09:22 Dose: 200 mls/hr Vancomycin HCl 1,000 mg/ (Dextrose) 250 mls @ 200 mls/hr IVPB DAILY@1200 [facility] Last Admin: 02/07/17 12:30 Dose: 200 mls/hr Famotidine (Pepcid 20 Mg/12 Ml Push) 20 mg in 12 mls @ 144 mls/hr IVPUSH BID [facility] Last Admin: 02/08/17 09:36 Dose: 144 mls/hr Insulin Aspart (Novolog Vial Sliding Scale -) 1 vial SQ HS [facility] PRN Reason: Protocol Last Admin: 02/08/17 11:40 Dose: 2 unit Insulin Aspart (Novolog Vial Sliding Scale -) 1 vial SQ TIDAC [facility] PRN Reason: Protocol Last Admin: 02/08/17 06:10 Dose: Not Given Insulin Detemir (Levemir Vial) 12 units SQ BID@0700,2200 [facility] Last Admin: 02/08/17 06:21 Dose: 12 unit Magnesium Oxide (Mag-Ox -) 400 mg PO BID [facility] Methimazole (Tapazole -) 5 mg PO DAILY [facility] Metoprolol Succinate (Toprol Xl -) 25 mg PO BID [facility] Last Admin: 02/08/17 09:36 Dose: 25 mg Ondansetron HCl (Zofran Injection) 4 mg IVPUSH Q6H PRN PRN Reason: NAUSEA AND/OR VOMITING Last Admin: 02/07/17 21:13 Dose: 4 mg Potassium Chloride (K-Dur -) 40 meq PO DAILY [facility] Sertraline HCl (Zoloft -) 150 mg PO DAILY [facility] Last Admin: 02/08/17 09:23 Dose: 150 mg - Objective Vital Signs: Vital Signs Temperature 98.1 F 02/08/17 05:52 Pulse Rate 74 02/08/17 05:52 Respiratory Rate 18 02/08/17 05:52 Blood Pressure 156/97 02/08/17 05:52 O2 Sat by Pulse Oximetry (%) 100 02/07/17 21:00 Constitutional: Yes: Calm Eyes: Yes: Conjunctiva Clear HENT: Yes: Atraumatic Neck: Yes: Supple Cardiovascular: Yes: S1, S2 Respiratory: Yes: CTA Bilaterally Gastrointestinal: Yes: Soft Genitourinary: Yes: WNL Edema: No Wound/Incision: Yes: Open to air Neurological: Yes: Oriented Psychiatric: Yes: Oriented Labs: CBC, BMP 02/08/17 06:30 02/08/17 06:30 Problem List - Problems (1) SUSANNA (acute kidney injury) Code(s): N17.9 - ACUTE KIDNEY FAILURE, UNSPECIFIED (2) Anemia Code(s): D64.9 - ANEMIA, UNSPECIFIED (3) Diabetic ulcer of right lower leg associated with diabetes mellitus due to underlying condition Code(s): E08.622 - DIABETES DUE TO UNDERLYING CONDITION W OTH SKIN ULCER; L97.919 - NON-PRS CHRONIC ULC UNSP PRT OF R LOW LEG W UNSP SEVERITY (4) Diabetes Code(s): E11.9 - TYPE 2 DIABETES MELLITUS WITHOUT COMPLICATIONS Assessment/Plan Current Medications Generic Name Dose Route Start Last Admin Trade Name Freq PRN Reason Stop Dose Admin Acetaminophen 650 mg 02/07/17 10:48 Tylenol - PO Q4H PRN FEVER OR PAIN Amlodipine Besylate 10 mg 02/07/17 10:00 02/08/17 09:24 Norvasc - PO 10 mg DAILY [facility] Administration Atorvastatin Calcium 20 mg 02/07/17 22:00 02/07/17 21:12 Lipitor - PO 20 mg HS RONNIE Administration Collagenase 1 applic 02/07/17 16:00 02/08/17 09:23 Santyl - TP 1 applic DAILY [facility] Administration Dextrose 25 gm 02/07/17 10:48 D50w (Vial) - IVPUSH PRN PRN hypoglycemia Heparin Sodium (Porcine) 5,000 unit 02/07/17 06:15 02/08/17 05:52 Heparin - SQ 5,000 unit TID RONNIE Administration Lactated Ringer's 1,000 ml in 1,000 mls @ 75 mls/hr 02/07/17 11:00 02/08/17 15:33 Lactated Ringers Solution IV 75 mls/hr ASDIR [facility]ONNIE Administration Piperacillin Sod/Tazobactam 100 mls @ 200 mls/hr 02/07/17 18:00 02/08/17 09: 22 Sod 3.375 gm/ Dextrose IVPB 200 mls/hr Q8H-IV RONNIE Administration Protocol Vancomycin HCl 1,000 mg/ 250 mls @ 200 mls/hr 02/07/17 12:00 02/07/17 12:30 Dextrose IVPB 200 mls/hr DAILY@1200 RONNIE Administration Famotidine 20 mg in 12 mls @ 144 mls/hr 02/07/17 21:20 02/08/17 09:36 Pepcid 20 Mg/12 Ml Push IVPUSH 144 mls/hr BID [facility]ONNIE Administration Insulin Aspart 1 vial 02/07/17 22:00 02/08/17 11:40 Novolog Vial Sliding Scale - SQ 2 unit HS RONNIE Administration Protocol Insulin Aspart 1 vial 02/07/17 16:30 02/08/17 06:10 Novolog Vial Sliding Scale - SQ Not Given TIDAC [facility] Protocol Insulin Detemir 12 units 02/07/17 22:00 02/08/17 06:21 Levemir Vial SQ 12 unit BID@0700,2200 [facility] Administration Magnesium Oxide 400 mg 02/08/17 15:45 Mag-Ox - PO BID [facility] Methimazole 5 mg 02/08/17 15:45 Tapazole - PO DAILY [facility] Metoprolol Succinate 25 mg 02/07/17 22:00 02/08/17 09:36 Toprol Xl - PO 25 mg BID [facility] Administration Ondansetron HCl 4 mg 02/07/17 06:30 02/07/17 21:13 Zofran Injection IVPUSH 4 mg Q6H PRN Administration NAUSEA AND/OR VOMITING Potassium Chloride 40 meq 02/08/17 16:00 K-Dur - PO DAILY [facility]ON[facility] Sertraline HCl 150 mg 02/07/17 10:00 02/08/17 09:23 Zoloft - PO 150 mg DAILY [facility] Administration Impression 1. SUSANNA 2. DM uncontrolled 3. DFU 4. vomiting 5. HTN 6. peripheral neuropathy 7. hypokalemia Plan - place another IV and restart fluids - renal workup in progress - follow urine studies - renal ultrasound - likely pre-renal disease however may have some renal disease from DM - replace potassium - abx per ID - will follow Dr Mata
[2017-02-08] MEDS: POTASSIUM CHLORIDE TABS 20 MEQ TABLET.ER (FP) PO SCH (16:52)
[2017-02-08] MEDS: MAGNESIUM OXIDE 400 MG TABLET (FP) PO SCH ×2 (16:52→22:21)
[2017-02-08] MEDS: METHIMAZOLE 5 MG TABLET (FP) PO SCH (21:46)
[2017-02-08] MEDS: ATORVASTATIN CA 20 MG TABLET (FP) PO SCH (22:21)
[2017-02-09] MEDS ORDERED: PT OWN MED DRAWER 7, Y5N ONE ×2 (02:51→20:11)
[2017-02-09] MEDS: PIPERACILLIN/TAZOB 3.375 GM 3.375 GM in DEXTROSE 5%-WATER - 100 ML IVPB SCH ×3 (03:05→17:00)
[2017-02-09] MEDS: LACTATED RINGERS SOLUTION 1,000 ML/1,000 ML INFUS.BAG IV SCH ×2 (03:08→12:13)
[2017-02-09] MEDS: HEPARIN NA (PORCINE) 5,000 UNITS/ML 1ML VIAL SQ SCH ×3 (06:51→21:54)
[2017-02-09] MEDS: INSULIN DETEMIR 100 UNITS/ML MDV SQ SCH ×2 (06:53→21:55)
[2017-02-09] MEDS: INSULIN SLIDING SCALE (NOVOLOG) 1 VIAL SQ SCH ×4 (06:53→21:58)
[2017-02-09] MEDS ORDERED: INSULIN (NOVOLOG) ASPART 100 UNITS/ML 10ML VIAL ONE ×2 (07:47→11:39)
[2017-02-09 08:01] LABS: ALBUMIN 2.7 g/dl (3.4-5.0); ANION GAP 7 (8-16); BLOOD UREA NITROGEN 13 mg/dL (7-18); CHLORIDE 104 mmol/L (98-107); CO2 30 mmol/L (21-32); CREATININE 1.5 mg/dL (0.7-1.3); GLUCOSE,RANDOM 146 mg/dL (74-106); POTASSIUM 3.5 mmol/L (3.5-5.1); SGOT/AST 18 U/L (15-37); SGPT/ALT 26 U/L (12-78); SODIUM 141 mmol/L (136-145)
[2017-02-09 08:06] LABS: SERUM IRON SATURATION 29 % (15-55); TOTAL IRON BINDING CAPACITY 192 ug/dL (250-450); UIBC 136 ug/dL (111-343)
[2017-02-09 08:12] LABS: ALK PHOS 102 U/L (45-117); BILIRUBIN,TOTAL 0.6 mg/dL (0.2-1.0); TOT PROT 6.8 g/dl (6.4-8.2)
[2017-02-09] MEDS: POTASSIUM CHLORIDE TABS 20 MEQ TABLET.ER (FP) PO SCH (10:41)
[2017-02-09] MEDS: MAGNESIUM OXIDE 400 MG TABLET (FP) PO SCH ×2 (10:41→21:58)
[2017-02-09] MEDS: FAMOTIDINE IV 20 MG/12 ML VIAL IVPUSH SCH ×2 (10:41→21:59)
[2017-02-09] MEDS: METOPROLOL SUCCINATE 25 MG TAB.SR.24H (FP) PO SCH ×2 (10:41→21:58)
[2017-02-09] MEDS: METHIMAZOLE 5 MG TABLET (FP) PO SCH (10:41)
[2017-02-09] MEDS: amLODIPine BESYLATE 10 MG TABLET (FP) PO SCH (10:41)
[2017-02-09] MEDS: SERTRALINE HCL 50 MG TABLET (FP) PO SCH (10:41)
[2017-02-09] MEDS: COLLAGENASE CLOSTRIDIUM HIST. 30 GRAMS TUBE TP SCH (10:50)
[2017-02-09] MEDS: VANCOMYCIN 1,000 MG in DEXTROSE 5%-WATER - 250 ML IVPB SCH (12:13)
--- NOTE | 2017-02-09 16:57 | PN ---
Progress Note, Physician Chief Complaint: Diabetic ulcer, vomiting History of Present Illness: NAD, Vomiting yesterday Nausea in AM, resolved, tolerated Lunch and dinner IV abx seen by Vascular, bedside debridement done, ordered santyl seen by endocrinology for better glycemic control subclinical hyperthyroid with low TSH and elevated FT4 seen by Nephrology- Potassium replaced, on IVF LR to avoid metabolic acidosis - Current Medication List Current Medications: Active Medications Acetaminophen (Tylenol -) 650 mg PO Q4H PRN PRN Reason: FEVER OR PAIN Amlodipine Besylate (Norvasc -) 10 mg PO DAILY [facility] Last Admin: 02/09/17 10:41 Dose: 10 mg Atorvastatin Calcium (Lipitor -) 20 mg PO HS [facility] Last Admin: 02/08/17 22:21 Dose: 20 mg Collagenase (Santyl -) 1 applic TP DAILY [facility] Last Admin: 02/09/17 10:50 Dose: 1 applic Dextrose (D50w (Vial) -) 25 gm IVPUSH PRN PRN PRN Reason: hypoglycemia Heparin Sodium (Porcine) (Heparin -) 5,000 unit SQ TID [facility] Last Admin: 02/09/17 14:14 Dose: 5,000 unit Lactated Ringer's (Lactated Ringers Solution) 1,000 ml in 1,000 mls @ 75 mls/ hr IV ASDIR [facility] Last Admin: 02/09/17 12:13 Dose: Not Given Piperacillin Sod/Tazobactam (Sod 3.375 gm/ Dextrose) 100 mls @ 200 mls/hr IVPB Q8H-IV [facility]ONNIE PRN Reason: Protocol Last Admin: 02/09/17 10:40 Dose: 200 mls/hr Vancomycin HCl 1,000 mg/ (Dextrose) 250 mls @ 200 mls/hr IVPB DAILY@1200 [facility] Last Admin: 02/09/17 12:13 Dose: 200 mls/hr Famotidine (Pepcid 20 Mg/12 Ml Push) 20 mg in 12 mls @ 144 mls/hr IVPUSH BID [facility] Last Admin: 02/09/17 10:41 Dose: 144 mls/hr Insulin Aspart (Novolog Vial Sliding Scale -) 1 vial SQ HS [facility] PRN Reason: Protocol Last Admin: 02/08/17 22:21 Dose: 8 unit Insulin Aspart (Novolog Vial Sliding Scale -) 1 vial SQ TIDAC [facility] PRN Reason: Protocol Last Admin: 02/09/17 16:55 Dose: 8 units Insulin Detemir (Levemir Vial) 12 units SQ BID@0700,2200 [facility] Last Admin: 02/09/17 06:53 Dose: 12 unit Magnesium Oxide (Mag-Ox -) 400 mg PO BID [facility] Last Admin: 02/09/17 10:41 Dose: 400 mg Methimazole (Tapazole -) 5 mg PO DAILY [facility] Last Admin: 02/09/17 10:41 Dose: 5 mg Metoprolol Succinate (Toprol Xl -) 25 mg PO BID [facility] Last Admin: 02/09/17 10:41 Dose: 25 mg Ondansetron HCl (Zofran Injection) 4 mg IVPUSH Q6H PRN PRN Reason: NAUSEA AND/OR VOMITING Last Admin: 02/07/17 21:13 Dose: 4 mg Potassium Chloride (K-Dur -) 40 meq PO DAILY [facility] Last Admin: 02/09/17 10:41 Dose: 40 meq Sertraline HCl (Zoloft -) 150 mg PO DAILY [facility] Last Admin: 02/09/17 10:41 Dose: 150 mg - Objective Vital Signs: Vital Signs Temperature 97.7 F 02/09/17 15:00 Pulse Rate 88 02/09/17 15:00 Respiratory Rate 20 02/09/17 15:00 Blood Pressure 124/74 02/09/17 09:06 O2 Sat by Pulse Oximetry (%) 98 02/09/17 09:00 Constitutional: Yes: Well Nourished, No Distress, Calm Cardiovascular: Yes: Regular Rate and Rhythm Respiratory: Yes: Regular Musculoskeletal: Yes: WNL Peripheral Pulses WNL: Yes Integumentary: Yes: Other (diabetic ulcer RLE) Wound/Incision: Yes: Dressing Dry and Intact Neurological: Yes: Alert, Oriented Psychiatric: Yes: Alert, Oriented Labs: CBC, BMP 02/08/17 06:30 02/09/17 06:00 Problem List - Problems (1) Diabetic ulcer of right lower leg associated with diabetes mellitus due to underlying condition Assessment/Plan: -Wound culture pending -IV abx -seen by ID -Wound care/vascular sx consult Code(s): E08.622 - DIABETES DUE TO UNDERLYING CONDITION W OTH SKIN ULCER; L97.919 - NON-PRS CHRONIC ULC UNSP PRT OF R LOW LEG W UNSP SEVERITY (2) Diabetes Assessment/Plan: -Endocrinology consult -A1c at 14.0 -Levemir 12 U BID -Novolog sliding scale Code(s): E11.9 - TYPE 2 DIABETES MELLITUS WITHOUT COMPLICATIONS (3) Hypokalemia Assessment/Plan: -normalized -PO Kcl daily -repeat labs in AM Code(s): E87.6 - HYPOKALEMIA (4) SUSANNA (acute kidney injury) Assessment/Plan: -Hydration LR -Nephrology consult Code(s): N17.9 - ACUTE KIDNEY FAILURE, UNSPECIFIED (5) Anemia Assessment/Plan: -Iron profile pending -thyroid profile shows hyperthyroidism -vit b12 normal -stool OB pending -likely anemia of chronic disease -labs in am Code(s): D64.9 - ANEMIA, UNSPECIFIED (6) Hyperthyroidism Assessment/Plan: mild in light of a deterioration in glycemic control -methimazole 5 mg po daily -repeat TSH and Ft4 normal -endocrinology on board -FT3 and TG pending Code(s): E05.90 - THYROTOXICOSIS, UNSP WITHOUT THYROTOXIC CRISIS OR STORM (7) Vomiting Assessment/Plan: -gastroperisis? -GI consult -Abd U/S Code(s): R11.10 - VOMITING, UNSPECIFIED Assessment/Plan see problem list
--- NOTE | 2017-02-09 18:55 | PN ---
Progress Note (short form) - Note Progress Note: f/u for leanne s/p vomiting Active Medications Acetaminophen (Tylenol -) 650 mg PO Q4H PRN PRN Reason: FEVER OR PAIN Amlodipine Besylate (Norvasc -) 10 mg PO DAILY [facility] Last Admin: 02/09/17 10:41 Dose: 10 mg Atorvastatin Calcium (Lipitor -) 20 mg PO HS [facility] Last Admin: 02/08/17 22:21 Dose: 20 mg Collagenase (Santyl -) 1 applic TP DAILY [facility] Last Admin: 02/09/17 10:50 Dose: 1 applic Dextrose (D50w (Vial) -) 25 gm IVPUSH PRN PRN PRN Reason: hypoglycemia Heparin Sodium (Porcine) (Heparin -) 5,000 unit SQ TID [facility] Last Admin: 02/09/17 14:14 Dose: 5,000 unit Lactated Ringer's (Lactated Ringers Solution) 1,000 ml in 1,000 mls @ 75 mls/ hr IV ASDIR [facility] Last Admin: 02/09/17 12:13 Dose: Not Given Piperacillin Sod/Tazobactam (Sod 3.375 gm/ Dextrose) 100 mls @ 200 mls/hr IVPB Q8H-IV [facility] PRN Reason: Protocol Last Admin: 02/09/17 17:00 Dose: 200 mls/hr Vancomycin HCl 1,000 mg/ (Dextrose) 250 mls @ 200 mls/hr IVPB DAILY@1200 [facility] Last Admin: 02/09/17 12:13 Dose: 200 mls/hr Famotidine (Pepcid 20 Mg/12 Ml Push) 20 mg in 12 mls @ 144 mls/hr IVPUSH BID [facility] Last Admin: 02/09/17 10:41 Dose: 144 mls/hr Insulin Aspart (Novolog Vial Sliding Scale -) 1 vial SQ HS [facility] PRN Reason: Protocol Last Admin: 02/08/17 22:21 Dose: 8 unit Insulin Aspart (Novolog Vial Sliding Scale -) 1 vial SQ TIDAC [facility] PRN Reason: Protocol Last Admin: 02/09/17 16:55 Dose: 8 units Insulin Detemir (Levemir Vial) 12 units SQ BID@0700,2200 [facility] Last Admin: 02/09/17 06:53 Dose: 12 unit Magnesium Oxide (Mag-Ox -) 400 mg PO BID [facility] Last Admin: 02/09/17 10:41 Dose: 400 mg Methimazole (Tapazole -) 5 mg PO DAILY [facility] Last Admin: 02/09/17 10:41 Dose: 5 mg Metoprolol Succinate (Toprol Xl -) 25 mg PO BID [facility] Last Admin: 02/09/17 10:41 Dose: 25 mg Ondansetron HCl (Zofran Injection) 4 mg IVPUSH Q6H PRN PRN Reason: NAUSEA AND/OR VOMITING Last Admin: 02/07/17 21:13 Dose: 4 mg Potassium Chloride (K-Dur -) 40 meq PO DAILY [facility] Last Admin: 02/09/17 10:41 Dose: 40 meq Sertraline HCl (Zoloft -) 150 mg PO DAILY [facility] Last Admin: 02/09/17 10:41 Dose: 150 mg Last Vital Signs Temp Pulse Resp BP Pulse Ox 98.1 F 83 18 142/89 98 02/09/17 17:27 02/09/17 17:27 02/09/17 17:27 02/09/17 17:27 02/09/17 09:00 lungs clear heart reg rate and rhythm abd soft nontender ext no edema wound dressed and bandaged CBC, BMP 02/08/17 06:30 02/09/17 06:00 Plan- same rx
[2017-02-09] MEDS: ATORVASTATIN CA 20 MG TABLET (FP) PO SCH (21:57)
[2017-02-10] MEDS: PIPERACILLIN/TAZOB 3.375 GM 3.375 GM in DEXTROSE 5%-WATER - 100 ML IVPB SCH ×3 (01:26→18:13)
[2017-02-10] MEDS: LACTATED RINGERS SOLUTION 1,000 ML/1,000 ML INFUS.BAG IV SCH ×3 (01:27→17:03)
[2017-02-10] MEDS: HEPARIN NA (PORCINE) 5,000 UNITS/ML 1ML VIAL SQ SCH ×3 (05:59→22:42)
[2017-02-10] MEDS: INSULIN DETEMIR 100 UNITS/ML MDV SQ SCH ×2 (06:03→22:42)
[2017-02-10] MEDS: INSULIN SLIDING SCALE (NOVOLOG) 1 VIAL SQ SCH ×4 (06:04→22:41)
[2017-02-10 08:08] LABS: BASO % 0.9 % (0-2.0); EOS % 4.8 % (0-4.5); HEMATOCRIT 33.2 % (35.4-49); HEMOGLOBIN 10.7 GM/dL (11.7-16.9); LYMPH % 38.5 % (8-40); MCH 25.7 pg (25.7-33.7); MCHC 32.1 g/dl (32.0-35.9); MEAN PLT VOLUME 8.2 fl (7.5-11.1); MONO % 8.2 % (3.8-10.2); NEUT % 47.6 % (42.8-82.8); PLATELET COUNT 280 K/MM3 (134-434); RBC 4.15 M/mm3 (4.00-5.60); WHITE BLOOD COUNT 5.6 K/mm3 (4.0-10.0)
[2017-02-10] MEDS ORDERED: FLU VACCINE QUAD 60 MCG/0.5 ML (MDV 17-18) IM ONE (09:00)
[2017-02-10 09:37] LABS: ALBUMIN 2.7 g/dl (3.4-5.0); ANION GAP 8 (8-16); BLOOD UREA NITROGEN 14 mg/dL (7-18); CALCIUM 8.9 mg/dL (8.5-10.1); CHLORIDE 101 mmol/L (98-107); CO2 29 mmol/L (21-32); SODIUM 138 mmol/L (136-145)
[2017-02-10 09:41] LABS: ALK PHOS 111 U/L (45-117); BILIRUBIN,TOTAL 0.3 mg/dL (0.2-1.0); CREATININE 1.4 mg/dL (0.7-1.3); GLUCOSE,RANDOM 183 mg/dL (74-106); SGOT/AST 24 U/L (15-37); SGPT/ALT 32 U/L (12-78); TOT PROT 6.7 g/dl (6.4-8.2)
--- NOTE | 2017-02-10 10:01 | PN ---
Progress Note (short form) - Note Progress Note: Feels good good Denies any complaints Apetite good Blood sugar 200s Vital Signs Period Temp Pulse Resp BP Sys/Gilmore Pulse Ox Last 24 Hr 97.7 F-98.4 F 77-88 18-20 141-166/81-91 98 PE; AOx3 Neck: Supple, No JVD HEENT: EOMI Lungs: CTA CVS: S1S2 Abd: Benign, + BS EXt: Rt let dressing, Stasis changes of legs Neuro: No focal deficit CMP Sodium 138 mmol/L (136-145) 02/10/17 06:00 Potassium 4.0 mmol/L (3.5-5.1) 02/10/17 06:00 Chloride 101 mmol/L (98-107) 02/10/17 06:00 Carbon Dioxide 29 mmol/L (21-32) 02/10/17 06:00 Anion Gap 8 (8-16) 02/10/17 06:00 BUN 14 mg/dL (7-18) 02/10/17 06:00 Creatinine 1.5 mg/dL (0.7-1.3) H 02/09/17 06:00 Creat Clearance w eGFR 49.34 (>60) 02/09/17 06:00 POC Glucometer 273 UNITS (80-120) 02/09/17 21:53 Random Glucose 146 mg/dL (74-106) H D 02/09/17 06:00 Hemoglobin A1c % 14.0 % (4.8-6.0) H D 02/06/17 15:18 Calcium 8.9 mg/dL (8.5-10.1) 02/10/17 06:00 Magnesium 1.7 mg/dL (1.8-2.4) L 02/08/17 06:30 Iron 56 ug/dL (38-169) 02/08/17 06:30 TIBC 192 ug/dL (250-450) L 02/08/17 06:30 Iron Saturation 29 % (15-55) 02/08/17 06:30 Ferritin 307.520 ng/ml (16.4-293.9) H 02/08/17 06:30 Total Bilirubin 0.6 mg/dL (0.2-1.0) D 02/09/17 06:00 AST 18 U/L (15-37) 02/09/17 06:00 ALT 26 U/L (12-78) 02/09/17 06:00 Alkaline Phosphatase 102 U/L (45-117) 02/09/17 06:00 Creatine Kinase 120 IU/L (39-308) 02/06/17 15:25 Troponin I < 0.02 ng/ml (0.00-0.05) 02/06/17 15:25 C-Reactive Protein 1.9 MG/DL (0.00-0.3) H D 02/08/17 06:30 Total Protein 6.8 g/dl (6.4-8.2) 02/09/17 06:00 Albumin 2.7 g/dl (3.4-5.0) L 02/10/17 06:00 Triglycerides 99 mg/dL (35-160) 02/08/17 06:30 Cholesterol 131 mg/dL (50-200) D 02/08/17 06:30 Total LDL Cholesterol 67 mg/dL (5-100) D 02/08/17 06:30 HDL Cholesterol 48 mg/dL (40-60) 02/08/17 06:30 Total Amylase 59 U/L (25-115) 02/07/17 08:20 Lipase 69 U/L (73-393) L 02/07/17 08:20 Vitamin B12 884 pg/ml (180-914) D 02/08/17 06:30 TSH 0.37 uIU/ml (0.358-3.74) D 02/09/17 06:00 Free T4 1.15 ng/dl (0.76-1.16) 02/09/17 06:00 Free T3 2.5 pg/ml (2.0-4.4) 02/09/17 06:00 Current Medications Generic Name Dose Route Start Last Admin Trade Name Freq PRN Reason Stop Dose Admin Acetaminophen 650 mg 02/07/17 10:48 Tylenol - PO Q4H PRN FEVER OR PAIN Amlodipine Besylate 10 mg 02/07/17 10:00 02/09/17 10:41 Norvasc - PO 10 mg DAILY [facility] Administration Atorvastatin Calcium 20 mg 02/07/17 22:00 02/09/17 21:57 Lipitor - PO 20 mg HS [facility] Administration Collagenase 1 applic 02/07/17 16:00 02/09/17 10:50 Santyl - TP 1 applic DAILY [facility] Administration Dextrose 25 gm 02/07/17 10:48 D50w (Vial) - IVPUSH PRN PRN hypoglycemia Heparin Sodium (Porcine) 5,000 unit 02/07/17 06:15 02/10/17 05:59 Heparin - SQ 5,000 unit TID [facility] Administration Lactated Ringer's 1,000 ml in 1,000 mls @ 75 mls/hr 02/07/17 11:00 02/10/17 01:27 Lactated Ringers Solution IV 75 mls/hr ASDIR [facility] Administration Piperacillin Sod/Tazobactam 100 mls @ 200 mls/hr 02/07/17 18:00 02/10/17 01: 26 Sod 3.375 gm/ Dextrose IVPB 200 mls/hr Q8H-IV [facility] Administration Protocol Vancomycin HCl 1,000 mg/ 250 mls @ 200 mls/hr 02/07/17 12:00 02/09/17 12:13 Dextrose IVPB 200 mls/hr DAILY@1200 [facility] Administration Famotidine 20 mg in 12 mls @ 144 mls/hr 02/07/17 21:20 02/09/17 21:59 Pepcid 20 Mg/12 Ml Push IVPUSH 144 mls/hr BID [facility] Administration Insulin Aspart 1 vial 02/07/17 22:00 02/09/17 21:58 Novolog Vial Sliding Scale - SQ 6 unit HS [facility] Administration Protocol Insulin Aspart 1 vial 02/07/17 16:30 02/10/17 06:04 Novolog Vial Sliding Scale - SQ Not Given [facility] Protocol Insulin Detemir 12 units 02/07/17 22:00 02/10/17 06:03 Levemir Vial SQ Not Given BID@0700,2200 [facility] Magnesium Oxide 400 mg 02/08/17 15:45 02/09/17 21:58 Mag-Ox - PO 400 mg BID [facility] Administration Methimazole 5 mg 02/08/17 15:45 02/09/17 10:41 Tapazole - PO 5 mg DAILY [facility] Administration Metoprolol Succinate 25 mg 02/07/17 22:00 02/09/17 21:58 Toprol Xl - PO 25 mg BID [facility] Administration Ondansetron HCl 4 mg 02/07/17 06:30 02/07/17 21:13 Zofran Injection IVPUSH 4 mg Q6H PRN Administration NAUSEA AND/OR VOMITING Potassium Chloride 40 meq 02/08/17 16:00 02/09/17 10:41 K-Dur - PO 40 meq DAILY [facility] Administration Sertraline HCl 150 mg 02/07/17 10:00 02/09/17 10:41 Zoloft - PO 150 mg DAILY [facility] Administration AP: Rt leg ulcer T2DM HTN HLD Stasis changes of legs ?Gastroparesis: Consider GI consult Subclinical Hyperthyroidism: TSH 0.16 with FT4 of 1.16, Not sure if the FT4 level is really high. Repeat TSH 0.37 FT4 1.15 FT3 2.5 TPO, TSI Pending Increase Levemir 15 units BID for now as it is unclear how much he is going to eat and what he was eating at home to require the amount of insulin he did at home Increase Novolog SS coverage IV Abx Problem List - Problems (1) Diabetic ulcer of right lower leg associated with diabetes mellitus due to underlying condition Code(s): E08.622 - DIABETES DUE TO UNDERLYING CONDITION W OTH SKIN ULCER; L97.919 - NON-PRS CHRONIC ULC UNSP PRT OF R LOW LEG W UNSP SEVERITY
--- NOTE | 2017-02-10 10:33 | PN ---
Progress Note (short form) - Note Progress Note: s/p bedside debridement of abscess RLE Vital Signs Period Temp Pulse Resp BP Sys/Gilmore Pulse Ox Last 24 Hr 97.7 F-98.4 F 77-88 18-20 141-166/81-91 98 cor-rrr lungs clear abd soft,nt ext still some induration and erythema surrounding ulcer CBC, BMP 02/10/17 06:00 02/10/17 06:00 Microbiology 02/06/17 20:00 Blood - Peripheral Venous Blood Culture - Preliminary NO GROWTH OBTAINED AFTER 72 HOURS, INCUBATION TO CONTINUE FOR 2 DAYS. 02/06/17 20:00 Blood - Peripheral Venous Blood Culture - Preliminary NO GROWTH OBTAINED AFTER 72 HOURS, INCUBATION TO CONTINUE FOR 2 DAYS. 02/06/17 20:00 Leg - Right Lower Gram Stain - Final 02/06/17 20:00 Leg - Right Lower Wound Culture - Final Mr S Aureus Pseudomonas Aeruginosa 02/07/17 12:00 Leg - Right Lower Gram Stain - Final 02/07/17 12:00 Leg - Right Lower Wound Culture - Preliminary Presumptive Mrsa (Pbp2a Pos) vanco trough 9.4 a/p s/p drainage of abscess RLE- pseudomonas and MRSA< continue vanco/zosyn diabetes
[2017-02-10] MEDS: amLODIPine BESYLATE 10 MG TABLET (FP) PO SCH (10:45)
[2017-02-10] MEDS: POTASSIUM CHLORIDE TABS 20 MEQ TABLET.ER (FP) PO SCH (10:45)
[2017-02-10] MEDS: METOPROLOL SUCCINATE 25 MG TAB.SR.24H (FP) PO SCH ×2 (10:45→22:43)
[2017-02-10] MEDS: SERTRALINE HCL 50 MG TABLET (FP) PO SCH (10:45)
[2017-02-10] MEDS: MAGNESIUM OXIDE 400 MG TABLET (FP) PO SCH ×2 (10:45→22:43)
[2017-02-10] MEDS: FAMOTIDINE IV 20 MG/12 ML VIAL IVPUSH SCH (10:46)
[2017-02-10] MEDS: METHIMAZOLE 5 MG TABLET (FP) PO SCH (10:48)
[2017-02-10] MEDS: COLLAGENASE CLOSTRIDIUM HIST. 30 GRAMS TUBE TP SCH (10:49)
[2017-02-10] MEDS: VANCOMYCIN 1,000 MG in DEXTROSE 5%-WATER - 250 ML IVPB SCH (12:48)
--- NOTE | 2017-02-10 13:52 | CON.GI ---
Consult Consult Specialty:: Gastroenterology ( covering for Dr. Ding) Referred by:: Yuriy Wilson NP Reason for Consultation:: Dysphagia. Vomiting. - History of Present Illness Chief Complaint: Dysphagia for liquids and solids with vomiting for the past few weeks. History of Present Illness: 51M has dypshagia for liquids and solids for the past several weeks leading to a 15 lbs weight loss. He feels that the food is getting stuck in his chest nad has had to regurgitate regularly. He denies hematemesis. He does have heartburn intermittently. He had an EGD done remotely in preparation for bariatric surgery. He does not recall the results. He weight almost 400 lbs at that time. He did not have the bariatric surgery anmd managed to lose the weight through diet and exercise. He has never had a colonoscopy. He has noted recent black stool. He denies hematochezia. He takes aspirin daily. NO FH of GI malignancies. 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 (PAS) Cardio/Vascular: Yes: HTN, Hyperlipdemia, Other (peripheral vascular disease) Gastrointestinal: Yes: GERD Infectious Disease: Yes: MRSA, Other (MRSA wound infections, osteomyelitis ) Psych: Yes: Depression Endocrine: Yes: Diabetes Mellitus (with neuropathy and vasculopathy), Hyperthyroidism Dermatology: Yes: Cellulitis Additional Medical History: Diabetic left foot ulcer - Past Surgical History Past Surgical History: Yes: Amputation (right great toe), Tonsillectomy - Alcohol/Substance Use Hx Alcohol Use: No History of Substance Use: reports: None - Smoking History Smoking history: Never smoked Have you smoked in the past 12 months: No Aproximately how many cigarettes per day: 0 - Social History Usual Living Arrangement: Alone (never ) ADL: Independent 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 Place of : [facility] History of Recent Travel: No Home Medications - Allergies Allergies/Adverse Reactions: Allergies Allergy/AdvReac Type Severity Reaction Status Date / Time No Known Drug Allergies Allergy Verified 02/06/17 14:47 - Home Medications Home Medications: Ambulatory Orders Aspirin [ASA -] 81 mg PO DAILY 05/27/14 Amlodipine Besylate [Norvasc -] 10 mg PO DAILY tablet 06/03/14 Metoprolol Succinate [Toprol XL -] 25 mg PO BID tab.sr.24h 06/03/14 Sertraline HCl [Zoloft -] 150 mg PO DAILY tablet 06/03/14 Atorvastatin Ca [Lipitor] 20 mg PO HS tablet 08/13/15 Insulin Glargine,Hum.rec.anlog [Champjohnrobert Pulidolaviniaalejandra] 35 unit SQ BID #0 08/13/15 Oxycodone HCl/Acetaminophen [Percocet 5-325 mg Tablet] 1 - 2 tab PO Q4H PRN #14 tablet MDD 6 01/05/17 Cyclobenzaprine HCl [Flexeril 10 mg] 10 mg PO BID PRN #14 tablet 01/06/17 Ibuprofen [Motrin -] 400 mg PO Q6H PRN #18 tablet MDD 4 01/08/17 Family Disease History - Family Disease History Family Disease History: Heart Disease: Mother (alcohol), Other: Father ( of accident) Other Family History: No family h/o DM Review of Systems - Review of Systems Constitutional: reports: Other (has 15 lbs weight loss) Eyes: reports: No Symptoms HENT: reports: Difficult Swallowing Neck: reports: No Symptoms Cardiovascular: reports: No Symptoms Respiratory: reports: No Symptoms Gastrointestinal: reports: Dysphagia, Melena, Vomiting Integumentary: reports: Other (RLE ulcer) Neurological: reports: No Symptoms Endocrine: reports: Unexplained Weight Loss Physical Exam-GI Vital Signs: Vital Signs Temperature 97.7 F 02/10/17 06:33 Pulse Rate 77 02/10/17 06:33 Respiratory Rate 18 02/10/17 06:33 Blood Pressure 166/91 02/10/17 06:33 O2 Sat by Pulse Oximetry (%) 98 02/09/17 21:00 CBC,CMP WBC 5.6 K/mm3 (4.0-10.0) D 02/10/17 06:00 RBC 4.15 M/mm3 (4.00-5.60) 02/10/17 06:00 Hgb 10.7 GM/dL (11.7-16.9) L 02/10/17 06:00 Hct 33.2 % (35.4-49) L 02/10/17 06:00 MCV 80.0 fl (80-96) 02/10/17 06:00 MCH 25.7 pg (25.7-33.7) 02/10/17 06:00 MCHC 32.1 g/dl (32.0-35.9) 02/10/17 06:00 RDW 14.0 % (11.9-15.9) 02/10/17 06:00 Plt Count 280 K/MM3 (134-434) 02/10/17 06:00 MPV 8.2 fl (7.5-11.1) 02/10/17 06:00 Neutrophils % 47.6 % (42.8-82.8) D 02/10/17 06:00 Lymphocytes % 38.5 % (8-40) D 02/10/17 06:00 Monocytes % 8.2 % (3.8-10.2) 02/10/17 06:00 Eosinophils % 4.8 % (0-4.5) H 02/10/17 06:00 Basophils % 0.9 % (0-2.0) 02/10/17 06:00 ESR 48 mm/hr (0-20) H 02/08/17 06:30 Sodium 138 mmol/L (136-145) 02/10/17 06:00 Potassium 4.0 mmol/L (3.5-5.1) 02/10/17 06:00 Chloride 101 mmol/L (98-107) 02/10/17 06:00 Carbon Dioxide 29 mmol/L (21-32) 02/10/17 06:00 Anion Gap 8 (8-16) 02/10/17 06:00 BUN 14 mg/dL (7-18) 02/10/17 06:00 Creatinine 1.4 mg/dL (0.7-1.3) H 02/10/17 06:00 Creat Clearance w eGFR 53.43 (>60) 02/10/17 06:00 POC Glucometer 307 UNITS (80-120) 02/10/17 11:43 Random Glucose 183 mg/dL (74-106) H D 02/10/17 06:00 Hemoglobin A1c % 14.0 % (4.8-6.0) H D 02/06/17 15:18 Calcium 8.9 mg/dL (8.5-10.1) 02/10/17 06:00 Magnesium 1.7 mg/dL (1.8-2.4) L 02/08/17 06:30 Iron 56 ug/dL (38-169) 02/08/17 06:30 TIBC 192 ug/dL (250-450) L 02/08/17 06:30 Iron Saturation 29 % (15-55) 02/08/17 06:30 Ferritin 307.520 ng/ml (16.4-293.9) H 02/08/17 06:30 Total Bilirubin 0.3 mg/dL (0.2-1.0) D 02/10/17 06:00 AST 24 U/L (15-37) D 02/10/17 06:00 ALT 32 U/L (12-78) D 02/10/17 06:00 Alkaline Phosphatase 111 U/L (45-117) 02/10/17 06:00 Creatine Kinase 120 IU/L (39-308) 02/06/17 15:25 Troponin I < 0.02 ng/ml (0.00-0.05) 02/06/17 15:25 C-Reactive Protein 1.9 MG/DL (0.00-0.3) H D 02/08/17 06:30 Total Protein 6.7 g/dl (6.4-8.2) 02/10/17 06:00 Albumin 2.7 g/dl (3.4-5.0) L 02/10/17 06:00 Triglycerides 99 mg/dL (35-160) 02/08/17 06:30 Cholesterol 131 mg/dL (50-200) D 02/08/17 06:30 Total LDL Cholesterol 67 mg/dL (5-100) D 02/08/17 06:30 HDL Cholesterol 48 mg/dL (40-60) 02/08/17 06:30 Total Amylase 59 U/L (25-115) 02/07/17 08:20 Lipase 69 U/L (73-393) L 02/07/17 08:20 Vitamin B12 884 pg/ml (180-914) D 02/08/17 06:30 TSH 0.37 uIU/ml (0.358-3.74) D 02/09/17 06:00 Free T4 1.15 ng/dl (0.76-1.16) 02/09/17 06:00 Free T3 2.5 pg/ml (2.0-4.4) 02/09/17 06:00 Current Medications Generic Name Dose Route Start Last Admin Trade Name Freq PRN Reason Stop Dose Admin Acetaminophen 650 mg 02/07/17 10:48 Tylenol - PO Q4H PRN FEVER OR PAIN Amlodipine Besylate 10 mg 02/07/17 10:00 02/10/17 10:45 Norvasc - PO 10 mg DAILY [facility] Administration Atorvastatin Calcium 20 mg 02/07/17 22:00 02/09/17 21:57 Lipitor - PO 20 mg HS [facility] Administration Collagenase 1 applic 02/07/17 16:00 02/10/17 10:49 Santyl - TP 1 applic DAILY [facility] Administration Dextrose 25 gm 02/07/17 10:48 D50w (Vial) - IVPUSH PRN PRN hypoglycemia Heparin Sodium (Porcine) 5,000 unit 02/07/17 06:15 02/10/17 05:59 Heparin - SQ 5,000 unit TID [facility] Administration Lactated Ringer's 1,000 ml in 1,000 mls @ 75 mls/hr 02/07/17 11:00 02/10/17 12:47 Lactated Ringers Solution IV 75 mls/hr ASDIR [facility] Administration Piperacillin Sod/Tazobactam 100 mls @ 200 mls/hr 02/07/17 18:00 02/10/17 10: 46 Sod 3.375 gm/ Dextrose IVPB 200 mls/hr Q8H-IV [facility] Administration Protocol Vancomycin HCl 1,000 mg/ 250 mls @ 200 mls/hr 02/07/17 12:00 02/10/17 12:48 Dextrose IVPB 200 mls/hr DAILY@1200 [facility] Administration Famotidine 20 mg in 12 mls @ 144 mls/hr 02/07/17 21:20 02/10/17 10:46 Pepcid 20 Mg/12 Ml Push IVPUSH 144 mls/hr BID [facility] Administration Insulin Aspart 1 vial 02/07/17 22:00 02/09/17 21:58 Novolog Vial Sliding Scale - SQ 6 unit HS [facility] Administration Protocol Insulin Aspart 1 vial 02/10/17 11:30 Novolog Vial Sliding Scale - SQ [facility] Protocol Insulin Detemir 15 units 02/10/17 22:00 Levemir Vial SQ BID@0700,2200 [facility] Magnesium Oxide 400 mg 02/08/17 15:45 02/10/17 10:45 Mag-Ox - PO 400 mg BID [facility] Administration Methimazole 5 mg 02/08/17 15:45 02/10/17 10:48 Tapazole - PO 5 mg DAILY [facility] Administration Metoprolol Succinate 25 mg 02/07/17 22:00 02/10/17 10:45 Toprol Xl - PO 25 mg BID [facility] Administration Ondansetron HCl 4 mg 02/07/17 06:30 02/07/17 21:13 Zofran Injection IVPUSH 4 mg Q6H PRN Administration NAUSEA AND/OR VOMITING Potassium Chloride 40 meq 02/08/17 16:00 02/10/17 10:45 K-Dur - PO 40 meq DAILY [facility] Administration Sertraline HCl 150 mg 02/07/17 10:00 02/10/17 10:45 Zoloft - PO 150 mg DAILY [facility] Administration Constitutional: Yes: Calm Eyes: Yes: Conjunctiva Clear HENT: Yes: Normocephalic Neck: Yes: Trachea Midline Cardiovascular: Yes: Regular Rate and Rhythm Respiratory: Yes: CTA Bilaterally Gastrointestinal Inspection: Yes: Distention ...Auscultate: Yes: Normoactive Bowel Sounds ...Palpate: Yes: Soft, Other (nontender) ...Rectal Exam: Yes: Guaiac Positive, Sphincter Tone Normal (small amount of fresh blood obtained) Neurological: Yes: Alert, Oriented Labs: CBC, BMP 02/10/17 06:00 02/10/17 06:00 Laboratory Tests 02/06/17 02/08/17 02/10/17 15:18 06:30 06:00 WBC 5.6 D Hgb 10.7 L Hct 33.2 L Plt Count 280 ESR 48 H Hemoglobin A1c % 14.0 H D Problem List - Problems (1) Dysphagia Assessment/Plan: Dysphagia for solids and liquids is more suggestive of esophageal dysmotility, eosinophilic esophagitis or achalasia than a GERD related Schatzki ring or stricture. Given his age esophageal cancer is a real possibility. He alternatively have diabetic gastroparesis as the cause of his symptoms. Gastric outlet obstruction due to an ulcer or neoplasm are less likely possibilities. I will initiate the evaluation with an esophagram and UGI but he will likely need an EGD and possible dilation. Code(s): R13.10 - DYSPHAGIA, UNSPECIFIED Qualifiers: Dysphagia type: esophageal phase Qualified Code(s): R13.10 - Dysphagia, unspecified (2) Acid reflux Code(s): K21.9 - GASTRO-ESOPHAGEAL REFLUX DISEASE WITHOUT ESOPHAGITIS Qualifiers: Esophagitis presence: esophagitis presence not specified Qualified Code(s) : K21.9 - Gastro-esophageal reflux disease without esophagitis (3) Hematochezia Assessment/Plan: I suspect that this is hemorrhoidal given the small volume but I have advised a colonoscopy for colon cancer screening which he will discuss with Dr Ding. Code(s): K92.1 - MELENA Assessment/Plan Esophagram and UGI Empiric trial of Reglan PPI therapy EGD and ultimately a colonoscopy
[2017-02-10] MEDS ORDERED: METOCLOPRAMIDE HCL INJECTION 10 MG/2 ML VIAL IVPUSH PRN (14:16)
--- NOTE | 2017-02-10 15:25 | PN ---
Progress Note (short form) - Note Progress Note: f/u for leanne s/p vomiting DM HTN Active Medications Acetaminophen (Tylenol -) 650 mg PO Q4H PRN PRN Reason: FEVER OR PAIN Amlodipine Besylate (Norvasc -) 10 mg PO DAILY [facility] Last Admin: 02/10/17 10:45 Dose: 10 mg Atorvastatin Calcium (Lipitor -) 20 mg PO HS [facility] Last Admin: 02/09/17 21:57 Dose: 20 mg Collagenase (Santyl -) 1 applic TP DAILY [facility] Last Admin: 02/10/17 10:49 Dose: 1 applic Dextrose (D50w (Vial) -) 25 gm IVPUSH PRN PRN PRN Reason: hypoglycemia Heparin Sodium (Porcine) (Heparin -) 5,000 unit SQ TID [facility] Last Admin: 02/10/17 05:59 Dose: 5,000 unit Lactated Ringer's (Lactated Ringers Solution) 1,000 ml in 1,000 mls @ 75 mls/ hr IV ASDIR [facility] Last Admin: 02/10/17 12:47 Dose: 75 mls/hr Piperacillin Sod/Tazobactam (Sod 3.375 gm/ Dextrose) 100 mls @ 200 mls/hr IVPB Q8H-IV [facility] PRN Reason: Protocol Last Admin: 02/10/17 10:46 Dose: 200 mls/hr Vancomycin HCl 1,000 mg/ (Dextrose) 250 mls @ 200 mls/hr IVPB DAILY@1200 [facility] Last Admin: 02/10/17 12:48 Dose: 200 mls/hr Insulin Aspart (Novolog Vial Sliding Scale -) 1 vial SQ HS [facility] PRN Reason: Protocol Last Admin: 02/09/17 21:58 Dose: 6 unit Insulin Aspart (Novolog Vial Sliding Scale -) 1 vial SQ TIDAC [facility] PRN Reason: Protocol Insulin Detemir (Levemir Vial) 15 units SQ BID@0700,2200 [facility] Magnesium Oxide (Mag-Ox -) 400 mg PO BID [facility] Last Admin: 02/10/17 10:45 Dose: 400 mg Methimazole (Tapazole -) 5 mg PO DAILY [facility] Last Admin: 02/10/17 10:48 Dose: 5 mg Metoclopramide HCl (Reglan Injection -) 10 mg IVPUSH Q6H PRN PRN Reason: NAUSEA AND/OR VOMITING Metoprolol Succinate (Toprol Xl -) 25 mg PO BID [facility] Last Admin: 02/10/17 10:45 Dose: 25 mg Ondansetron HCl (Zofran Injection) 4 mg IVPUSH Q6H PRN PRN Reason: NAUSEA AND/OR VOMITING Last Admin: 02/07/17 21:13 Dose: 4 mg Pantoprazole Sodium (Protonix Iv) 40 mg IVPUSH BID [facility] Potassium Chloride (K-Dur -) 40 meq PO DAILY [facility] Last Admin: 02/10/17 10:45 Dose: 40 meq Last Vital Signs Temp Pulse Resp BP Pulse Ox 98.1 F 81 20 183/91 98 02/10/17 14:00 02/10/17 14:00 02/10/17 14:00 02/10/17 14:00 02/09/17 21:00 lungs clear heart reg abd soft ext no edema CBC, BMP 02/10/17 06:00 02/10/17 06:00 CBC, BMP 02/08/17 06:30 02/09/17 06:00 IMP- improving renal function or stable at least anemia Plan - continue present rx
--- NOTE | 2017-02-10 19:15 | PN ---
Progress Note, Physician Chief Complaint: Diabetic ulcer, vomiting History of Present Illness: NAD, Vomiting yesterday Nausea in AM, resolved, tolerated Lunch and dinner IV abx IVF seen by Vascular, bedside debridement done, ordered santyl seen by endocrinology for better glycemic control subclinical hyperthyroid with low TSH and elevated FT4, on tapazole seen by Nephrology- Potassium replaced, on IVF LR to avoid metabolic acidosis - Current Medication List Current Medications: Active Medications Acetaminophen (Tylenol -) 650 mg PO Q4H PRN PRN Reason: FEVER OR PAIN Amlodipine Besylate (Norvasc -) 10 mg PO DAILY [facility] Last Admin: 02/10/17 10:45 Dose: 10 mg Atorvastatin Calcium (Lipitor -) 20 mg PO HS [facility] Last Admin: 02/09/17 21:57 Dose: 20 mg Collagenase (Santyl -) 1 applic TP DAILY [facility] Last Admin: 02/10/17 10:49 Dose: 1 applic Dextrose (D50w (Vial) -) 25 gm IVPUSH PRN PRN PRN Reason: hypoglycemia Heparin Sodium (Porcine) (Heparin -) 5,000 unit SQ TID [facility] Last Admin: 02/10/17 15:13 Dose: 5,000 unit Lactated Ringer's (Lactated Ringers Solution) 1,000 ml in 1,000 mls @ 75 mls/ hr IV ASDIR [facility] Last Admin: 02/10/17 17:03 Dose: 75 mls/hr Piperacillin Sod/Tazobactam (Sod 3.375 gm/ Dextrose) 100 mls @ 200 mls/hr IVPB Q8H-IV [facility] PRN Reason: Protocol Last Admin: 02/10/17 18:13 Dose: 200 mls/hr Vancomycin HCl 1,000 mg/ (Dextrose) 250 mls @ 200 mls/hr IVPB DAILY@1200 [facility] Last Admin: 02/10/17 12:48 Dose: 200 mls/hr Insulin Aspart (Novolog Vial Sliding Scale -) 1 vial SQ HS [facility] PRN Reason: Protocol Last Admin: 02/09/17 21:58 Dose: 6 unit Insulin Aspart (Novolog Vial Sliding Scale -) 1 vial SQ TIDAC [facility] PRN Reason: Protocol Last Admin: 02/10/17 16:52 Dose: 12 units Insulin Detemir (Levemir Vial) 15 units SQ BID@0700,2200 [facility] Magnesium Oxide (Mag-Ox -) 400 mg PO BID [facility] Last Admin: 02/10/17 10:45 Dose: 400 mg Methimazole (Tapazole -) 5 mg PO DAILY [facility] Last Admin: 02/10/17 10:48 Dose: 5 mg Metoclopramide HCl (Reglan Injection -) 10 mg IVPUSH Q6H PRN PRN Reason: NAUSEA AND/OR VOMITING Metoprolol Succinate (Toprol Xl -) 25 mg PO BID [facility] Last Admin: 02/10/17 10:45 Dose: 25 mg Ondansetron HCl (Zofran Injection) 4 mg IVPUSH Q6H PRN PRN Reason: NAUSEA AND/OR VOMITING Last Admin: 02/07/17 21:13 Dose: 4 mg Pantoprazole Sodium (Protonix Iv) 40 mg IVPUSH BID [facility] Potassium Chloride (K-Dur -) 40 meq PO DAILY [facility] Last Admin: 02/10/17 10:45 Dose: 40 meq - Objective Vital Signs: Vital Signs Temperature 97.6 F 02/10/17 18:27 Pulse Rate 83 02/10/17 18:27 Respiratory Rate 18 02/10/17 18:27 Blood Pressure 148/91 02/10/17 18:27 O2 Sat by Pulse Oximetry (%) 98 02/10/17 09:00 Constitutional: Yes: Well Nourished, No Distress, Calm Cardiovascular: Yes: Regular Rate and Rhythm Respiratory: Yes: Regular Gastrointestinal: Yes: Normal Bowel Sounds, Soft, Abdomen, Obese Musculoskeletal: Yes: WNL Extremities: Yes: WNL Edema: No Peripheral Pulses WNL: Yes Integumentary: Yes: Other (RLE diabtic ulcer) Wound/Incision: Yes: Dressing Dry and Intact Neurological: Yes: Alert, Oriented Psychiatric: Yes: Alert, Oriented Labs: CBC, BMP 02/10/17 06:00 02/10/17 06:00 Problem List - Problems (1) Diabetic ulcer of right lower leg associated with diabetes mellitus due to underlying condition Assessment/Plan: -Wound culture positive for MRSA -IV abx -seen by ID -Wound care/vascular sx consult Code(s): E08.622 - DIABETES DUE TO UNDERLYING CONDITION W OTH SKIN ULCER; L97.919 - NON-PRS CHRONIC ULC UNSP PRT OF R LOW LEG W UNSP SEVERITY (2) Diabetes Assessment/Plan: -Endocrinology consult -A1c at 14.0 -Increased Levemir to 15 U BID by Endo -Novolog sliding scale Code(s): E11.9 - TYPE 2 DIABETES MELLITUS WITHOUT COMPLICATIONS (3) Hypokalemia Assessment/Plan: -normalized -PO Kcl daily -repeat labs in AM Code(s): E87.6 - HYPOKALEMIA (4) SUSANNA (acute kidney injury) Assessment/Plan: -Hydration LR -Nephrology consult Code(s): N17.9 - ACUTE KIDNEY FAILURE, UNSPECIFIED (5) Anemia Assessment/Plan: -Iron profile normal -thyroid profile shows subclinical hyperthyroidism, on Tapazole -vit b12 normal -stool OB positive -seen by GI, may need colonoscopy, Dr Ding to discuss -likely anemia of chronic disease -labs in am Code(s): D64.9 - ANEMIA, UNSPECIFIED (6) Hyperthyroidism Assessment/Plan: -mild in light of a deterioration in glycemic control -methimazole 5 mg po daily -repeat TSH and Ft4 normal -endocrinology on board -FT3 and TG pending Code(s): E05.90 - THYROTOXICOSIS, UNSP WITHOUT THYROTOXIC CRISIS OR STORM (7) Vomiting Assessment/Plan: -Improved with Reglan -gastroperisis? -GI consult -Abd U/S shows mild distention of GB with small calculi and sludge Code(s): R11.10 - VOMITING, UNSPECIFIED Assessment/Plan see problem list
[2017-02-10] MEDS: ATORVASTATIN CA 20 MG TABLET (FP) PO SCH (22:42)
[2017-02-10] MEDS: PANTOPRAZOLE SODIUM 40 MG VIAL IVPUSH SCH (22:43)
[2017-02-11] MEDS ORDERED: PT OWN MED DRAWER 7, Y5N ONE ×3 (01:14→17:31)
[2017-02-11] MEDS: PIPERACILLIN/TAZOB 3.375 GM 3.375 GM in DEXTROSE 5%-WATER - 100 ML IVPB SCH ×3 (01:20→17:49)
[2017-02-11] MEDS: LACTATED RINGERS SOLUTION 1,000 ML/1,000 ML INFUS.BAG IV SCH (06:12)
[2017-02-11] MEDS: HEPARIN NA (PORCINE) 5,000 UNITS/ML 1ML VIAL SQ SCH ×3 (06:16→22:16)
[2017-02-11] MEDS: INSULIN DETEMIR 100 UNITS/ML MDV SQ SCH ×2 (06:20→22:15)
[2017-02-11] MEDS: INSULIN SLIDING SCALE (NOVOLOG) 1 VIAL SQ SCH ×5 (06:20→22:15)
[2017-02-11] MEDS ORDERED: INSULIN (NOVOLOG) ASPART 100 UNITS/ML 10ML VIAL ONE ×2 (07:21→21:27)
[2017-02-11] MEDS: POTASSIUM CHLORIDE TABS 20 MEQ TABLET.ER (FP) PO SCH (09:38)
[2017-02-11] MEDS: amLODIPine BESYLATE 10 MG TABLET (FP) PO SCH (09:40)
[2017-02-11] MEDS: MAGNESIUM OXIDE 400 MG TABLET (FP) PO SCH ×2 (09:41→22:17)
[2017-02-11] MEDS: PANTOPRAZOLE SODIUM 40 MG VIAL IVPUSH SCH ×2 (09:41→22:17)
[2017-02-11] MEDS: METHIMAZOLE 5 MG TABLET (FP) PO SCH (09:42)
[2017-02-11] MEDS: METOPROLOL SUCCINATE 25 MG TAB.SR.24H (FP) PO SCH ×2 (09:42→22:16)
[2017-02-11] MEDS: COLLAGENASE CLOSTRIDIUM HIST. 30 GRAMS TUBE TP SCH (09:43)
[2017-02-11] MEDS: VANCOMYCIN 1,000 MG in DEXTROSE 5%-WATER - 250 ML IVPB SCH (12:09)
--- NOTE | 2017-02-11 12:51 | PN ---
Progress Note, Physician History of Present Illness: feels better - Current Medication List Current Medications: Active Medications Acetaminophen (Tylenol -) 650 mg PO Q4H PRN PRN Reason: FEVER OR PAIN Amlodipine Besylate (Norvasc -) 10 mg PO DAILY [facility] Last Admin: 02/11/17 09:40 Dose: 10 mg Atorvastatin Calcium (Lipitor -) 20 mg PO HS [facility] Last Admin: 02/10/17 22:42 Dose: 20 mg Collagenase (Santyl -) 1 applic TP DAILY [facility] Last Admin: 02/11/17 09:43 Dose: 1 applic Dextrose (D50w (Vial) -) 25 gm IVPUSH PRN PRN PRN Reason: hypoglycemia Heparin Sodium (Porcine) (Heparin -) 5,000 unit SQ TID [facility] Last Admin: 02/11/17 06:16 Dose: 5,000 unit Lactated Ringer's (Lactated Ringers Solution) 1,000 ml in 1,000 mls @ 75 mls/ hr IV ASDIR [facility] Last Admin: 02/11/17 06:12 Dose: 75 mls/hr Piperacillin Sod/Tazobactam (Sod 3.375 gm/ Dextrose) 100 mls @ 200 mls/hr IVPB Q8H-IV [facility] PRN Reason: Protocol Last Admin: 02/11/17 09:42 Dose: 200 mls/hr Vancomycin HCl 1,000 mg/ (Dextrose) 250 mls @ 200 mls/hr IVPB DAILY@1200 [facility] Last Admin: 02/10/17 12:48 Dose: 200 mls/hr Insulin Aspart (Novolog Vial Sliding Scale -) 1 vial SQ [facility] PRN Reason: Protocol Last Admin: 02/11/17 11:12 Dose: 6 unit Insulin Aspart (Novolog Vial Sliding Scale -) 1 vial SQ TIDAC [facility] PRN Reason: Protocol Last Admin: 02/11/17 06:20 Dose: 10 units Insulin Detemir (Levemir Vial) 15 units SQ BID@0700,2200 [facility] Last Admin: 02/11/17 06:20 Dose: 15 units Magnesium Oxide (Mag-Ox -) 400 mg PO BID [facility] Last Admin: 02/11/17 09:41 Dose: 400 mg Methimazole (Tapazole -) 5 mg PO DAILY [facility] Last Admin: 02/11/17 09:42 Dose: 5 mg Metoclopramide HCl (Reglan Injection -) 10 mg IVPUSH Q6H PRN PRN Reason: NAUSEA AND/OR VOMITING Metoprolol Succinate (Toprol Xl -) 25 mg PO BID [facility] Last Admin: 02/11/17 09:42 Dose: 25 mg Ondansetron HCl (Zofran Injection) 4 mg IVPUSH Q6H PRN PRN Reason: NAUSEA AND/OR VOMITING Last Admin: 02/07/17 21:13 Dose: 4 mg Pantoprazole Sodium (Protonix Iv) 40 mg IVPUSH BID [facility] Last Admin: 02/11/17 09:41 Dose: 40 mg Potassium Chloride (K-Dur -) 40 meq PO DAILY [facility] Last Admin: 02/11/17 09:38 Dose: 40 meq - Objective Vital Signs: Vital Signs Temperature 98.1 F 02/11/17 05:24 Pulse Rate 76 02/11/17 05:24 Respiratory Rate 20 02/11/17 05:24 Blood Pressure 154/94 02/11/17 05:24 O2 Sat by Pulse Oximetry (%) 98 02/10/17 21:00 Cardiovascular: Yes: Regular Rate and Rhythm Respiratory: Yes: Regular, CTA Bilaterally Gastrointestinal: Yes: Normal Bowel Sounds, Soft Wound/Incision: Yes: Clean/Dry, Dressing Removed Labs: CBC, BMP 02/10/17 06:00 02/10/17 06:00 Assessment/Plan Problems (1) Diabetic ulcer of right lower leg associated with diabetes mellitus due to underlying condition Assessment/Plan: -Wound culture positive for MRSA -IV abx -seen by ID -Wound care/vascular sx consult Code(s): E08.622 - DIABETES DUE TO UNDERLYING CONDITION W OTH SKIN ULCER; L97.919 - NON-PRS CHRONIC ULC UNSP PRT OF R LOW LEG W UNSP SEVERITY (2) Diabetes Assessment/Plan: -Endocrinology consult -A1c at 14.0 -Increased Levemir to 15 U BID by Endo -Novolog sliding scale Code(s): E11.9 - TYPE 2 DIABETES MELLITUS WITHOUT COMPLICATIONS (3) Hypokalemia Assessment/Plan: -normalized -PO Kcl daily -repeat labs in AM Code(s): E87.6 - HYPOKALEMIA (4) SUSANNA (acute kidney injury) Assessment/Plan: -Hydration LR -Nephrology consult Code(s): N17.9 - ACUTE KIDNEY FAILURE, UNSPECIFIED (5) Anemia Assessment/Plan: -Iron profile normal -thyroid profile shows subclinical hyperthyroidism, on Tapazole -vit b12 normal -stool OB positive -seen by GI, may need colonoscopy, Dr Ding to discuss -likely anemia of chronic disease -labs in am Code(s): D64.9 - ANEMIA, UNSPECIFIED (6) Hyperthyroidism Assessment/Plan: -mild in light of a deterioration in glycemic control -methimazole 5 mg po daily -repeat TSH and Ft4 normal -endocrinology on board -FT3 and TG pending Code(s): E05.90 - THYROTOXICOSIS, UNSP WITHOUT THYROTOXIC CRISIS OR STORM (7) Vomiting Assessment/Plan: -Improved with Reglan -gastroperisis? -GI consult -Abd U/S shows mild distention of GB with small calculi and sludge Code(s): R11.10 - VOMITING, UNSPECIFIED
--- NOTE | 2017-02-11 14:41 | PN ---
Progress Note (short form) - Note Progress Note: Feels good good Denies any complaints Apetite good Blood sugar 200s Vital Signs Period Temp Pulse Resp BP Sys/[place]more Pulse Ox Last 24 Hr 97.6 F-98.1 F 76-84 18-20 148-154/91-103 98 PE; AOx3 Neck: Supple, No JVD HEENT: EOMI Lungs: CTA CVS: S1S2 Abd: Benign, + BS EXt: Rt let dressing, Stasis changes of legs Neuro: No focal deficit CMP Sodium 138 mmol/L (136-145) 02/10/17 06:00 Potassium 4.0 mmol/L (3.5-5.1) 02/10/17 06:00 Chloride 101 mmol/L (98-107) 02/10/17 06:00 Carbon Dioxide 29 mmol/L (21-32) 02/10/17 06:00 Anion Gap 8 (8-16) 02/10/17 06:00 BUN 14 mg/dL (7-18) 02/10/17 06:00 Creatinine 1.4 mg/dL (0.7-1.3) H 02/10/17 06:00 Creat Clearance w eGFR 53.43 (>60) 02/10/17 06:00 POC Glucometer 215 UNITS (80-120) 02/11/17 11:11 Random Glucose 183 mg/dL (74-106) H D 02/10/17 06:00 Hemoglobin A1c % 14.0 % (4.8-6.0) H D 02/06/17 15:18 Calcium 8.9 mg/dL (8.5-10.1) 02/10/17 06:00 Magnesium 1.7 mg/dL (1.8-2.4) L 02/08/17 06:30 Iron 56 ug/dL (38-169) 02/08/17 06:30 TIBC 192 ug/dL (250-450) L 02/08/17 06:30 Iron Saturation 29 % (15-55) 02/08/17 06:30 Ferritin 307.520 ng/ml (16.4-293.9) H 02/08/17 06:30 Total Bilirubin 0.3 mg/dL (0.2-1.0) D 02/10/17 06:00 AST 24 U/L (15-37) D 02/10/17 06:00 ALT 32 U/L (12-78) D 02/10/17 06:00 Alkaline Phosphatase 111 U/L (45-117) 02/10/17 06:00 Creatine Kinase 120 IU/L (39-308) 02/06/17 15:25 Troponin I < 0.02 ng/ml (0.00-0.05) 02/06/17 15:25 C-Reactive Protein 1.9 MG/DL (0.00-0.3) H D 02/08/17 06:30 Total Protein 6.7 g/dl (6.4-8.2) 02/10/17 06:00 Albumin 2.7 g/dl (3.4-5.0) L 02/10/17 06:00 Triglycerides 99 mg/dL (35-160) 02/08/17 06:30 Cholesterol 131 mg/dL (50-200) D 02/08/17 06:30 Total LDL Cholesterol 67 mg/dL (5-100) D 02/08/17 06:30 HDL Cholesterol 48 mg/dL (40-60) 02/08/17 06:30 Total Amylase 59 U/L (25-115) 02/07/17 08:20 Lipase 69 U/L (73-393) L 02/07/17 08:20 Vitamin B12 884 pg/ml (180-914) D 02/08/17 06:30 TSH 0.37 uIU/ml (0.358-3.74) D 02/09/17 06:00 Free T4 1.15 ng/dl (0.76-1.16) 02/09/17 06:00 Free T3 2.5 pg/ml (2.0-4.4) 02/09/17 06:00 Current Medications Generic Name Dose Route Start Last Admin Trade Name Freq PRN Reason Stop Dose Admin Acetaminophen 650 mg 02/07/17 10:48 Tylenol - PO Q4H PRN FEVER OR PAIN Amlodipine Besylate 10 mg 02/07/17 10:00 02/11/17 09:40 Norvasc - PO 10 mg DAILY [facility] Administration Atorvastatin Calcium 20 mg 02/07/17 22:00 02/10/17 22:42 Lipitor - PO 20 mg HS [facility]ONNIE Administration Collagenase 1 applic 02/07/17 16:00 02/11/17 09:43 Santyl - TP 1 applic DAILY [facility] Administration Dextrose 25 gm 02/07/17 10:48 D50w (Vial) - IVPUSH PRN PRN hypoglycemia Heparin Sodium (Porcine) 5,000 unit 02/07/17 06:15 02/11/17 06:16 Heparin - SQ 5,000 unit TID [facility]ON[facility] Administration Lactated Ringer's 1,000 ml in 1,000 mls @ 75 mls/hr 02/07/17 11:00 02/11/17 06:12 Lactated Ringers Solution IV 75 mls/hr ASDIR [facility] Administration Piperacillin Sod/Tazobactam 100 mls @ 200 mls/hr 02/07/17 18:00 02/11/17 09: 42 Sod 3.375 gm/ Dextrose IVPB 200 mls/hr Q8H-IV [facility]ONNIE Administration Protocol Vancomycin HCl 1,000 mg/ 250 mls @ 200 mls/hr 02/07/17 12:00 02/10/17 12:48 Dextrose IVPB 200 mls/hr DAILY@1200 [facility] Administration Insulin Aspart 1 vial 02/07/17 22:00 02/11/17 11:12 Novolog Vial Sliding Scale - SQ 6 unit HS [facility]ONNIE Administration Protocol Insulin Aspart 1 vial 02/10/17 11:30 02/11/17 06:20 Novolog Vial Sliding Scale - SQ 10 units TIDAC [facility] Administration Protocol Insulin Detemir 15 units 02/10/17 22:00 02/11/17 06:20 Levemir Vial SQ 15 units BID@0700,2200 [facility] Administration Magnesium Oxide 400 mg 02/08/17 15:45 02/11/17 09:41 Mag-Ox - PO 400 mg BID [facility] Administration Methimazole 5 mg 02/08/17 15:45 02/11/17 09:42 Tapazole - PO 5 mg DAILY [facility] Administration Metoclopramide HCl 10 mg 02/10/17 14:16 Reglan Injection - IVPUSH Q6H PRN NAUSEA AND/OR VOMITING Metoprolol Succinate 25 mg 02/07/17 22:00 02/11/17 09:42 Toprol Xl - PO 25 mg BID [facility] Administration Ondansetron HCl 4 mg 02/07/17 06:30 02/07/17 21:13 Zofran Injection IVPUSH 4 mg Q6H PRN Administration NAUSEA AND/OR VOMITING Pantoprazole Sodium 40 mg 02/10/17 22:00 02/11/17 09:41 Protonix Iv IVPUSH 40 mg BID [facility] Administration Potassium Chloride 40 meq 02/08/17 16:00 02/11/17 09:38 K-Dur - PO 40 meq DAILY [facility] Administration AP: Rt leg ulcer T2DM HTN HLD Stasis changes of legs ?Gastroparesis: Subclinical Hyperthyroidism: TSH 0.16 with FT4 of 1.16, Not sure if the FT4 level is really high. Repeat TSH 0.37 FT4 1.15 FT3 2.5 TPO, TSI Pending TFT tomorrow Increase Levemir 17 units BID for now as it is unclear how much he is going to eat and what he was eating at home to require the amount of insulin he did at home Increase Novolog SS coverage IV Abx Problem List - Problems (1) Diabetic ulcer of right lower leg associated with diabetes mellitus due to underlying condition Code(s): E08.622 - DIABETES DUE TO UNDERLYING CONDITION W OTH SKIN ULCER; L97.919 - NON-PRS CHRONIC ULC UNSP PRT OF R LOW LEG W UNSP SEVERITY
--- NOTE | 2017-02-11 15:25 | PN ---
Progress Note, Physician History of Present Illness: Pt seen and examined at bedside. He is awake and alert. He says that vomiting has stopped. - Current Medication List Current Medications: Active Medications Acetaminophen (Tylenol -) 650 mg PO Q4H PRN PRN Reason: FEVER OR PAIN Amlodipine Besylate (Norvasc -) 10 mg PO DAILY [facility] Last Admin: 02/11/17 09:40 Dose: 10 mg Atorvastatin Calcium (Lipitor -) 20 mg PO HS [facility] Last Admin: 02/10/17 22:42 Dose: 20 mg Collagenase (Santyl -) 1 applic TP DAILY [facility] Last Admin: 02/11/17 09:43 Dose: 1 applic Dextrose (D50w (Vial) -) 25 gm IVPUSH PRN PRN PRN Reason: hypoglycemia Heparin Sodium (Porcine) (Heparin -) 5,000 unit SQ TID [facility] Last Admin: 02/11/17 06:16 Dose: 5,000 unit Lactated Ringer's (Lactated Ringers Solution) 1,000 ml in 1,000 mls @ 75 mls/ hr IV ASDIR [facility] Last Admin: 02/11/17 06:12 Dose: 75 mls/hr Piperacillin Sod/Tazobactam (Sod 3.375 gm/ Dextrose) 100 mls @ 200 mls/hr IVPB Q8H-IV [facility] PRN Reason: Protocol Last Admin: 02/11/17 09:42 Dose: 200 mls/hr Vancomycin HCl 1,000 mg/ (Dextrose) 250 mls @ 200 mls/hr IVPB DAILY@1200 [facility] Last Admin: 02/10/17 12:48 Dose: 200 mls/hr Insulin Aspart (Novolog Vial Sliding Scale -) 1 vial SQ ACHS [facility] PRN Reason: Protocol Insulin Detemir (Levemir Vial) 17 units SQ BID@0700,2200 [facility] Magnesium Oxide (Mag-Ox -) 400 mg PO BID [facility] Last Admin: 02/11/17 09:41 Dose: 400 mg Methimazole (Tapazole -) 5 mg PO DAILY [facility] Last Admin: 02/11/17 09:42 Dose: 5 mg Metoclopramide HCl (Reglan Injection -) 10 mg IVPUSH Q6H PRN PRN Reason: NAUSEA AND/OR VOMITING Metoprolol Succinate (Toprol Xl -) 25 mg PO BID [facility] Last Admin: 02/11/17 09:42 Dose: 25 mg Ondansetron HCl (Zofran Injection) 4 mg IVPUSH Q6H PRN PRN Reason: NAUSEA AND/OR VOMITING Last Admin: 02/07/17 21:13 Dose: 4 mg Pantoprazole Sodium (Protonix Iv) 40 mg IVPUSH BID [facility] Last Admin: 02/11/17 09:41 Dose: 40 mg Potassium Chloride (K-Dur -) 40 meq PO DAILY [facility] Last Admin: 02/11/17 09:38 Dose: 40 meq - Objective Vital Signs: Vital Signs Temperature 98.0 F 02/11/17 14:33 Pulse Rate 82 02/11/17 14:33 Respiratory Rate 20 02/11/17 14:33 Blood Pressure 144/87 02/11/17 14:33 O2 Sat by Pulse Oximetry (%) 98 02/10/17 21:00 Constitutional: Yes: Calm Eyes: Yes: Conjunctiva Clear HENT: Yes: Atraumatic Neck: Yes: Supple Cardiovascular: Yes: S1, S2 Respiratory: Yes: CTA Bilaterally Gastrointestinal: Yes: Normal Bowel Sounds, Soft Genitourinary: Yes: WNL Musculoskeletal: Yes: WNL Edema: No Wound/Incision: Yes: Open to air Neurological: Yes: Oriented Labs: CBC, BMP 02/10/17 06:00 02/10/17 06:00 Problem List - Problems (1) SUSANNA (acute kidney injury) Code(s): N17.9 - ACUTE KIDNEY FAILURE, UNSPECIFIED (2) Anemia Code(s): D64.9 - ANEMIA, UNSPECIFIED (3) Diabetic ulcer of right lower leg associated with diabetes mellitus due to underlying condition Code(s): E08.622 - DIABETES DUE TO UNDERLYING CONDITION W OTH SKIN ULCER; L97.919 - NON-PRS CHRONIC ULC UNSP PRT OF R LOW LEG W UNSP SEVERITY (4) Diabetes Code(s): E11.9 - TYPE 2 DIABETES MELLITUS WITHOUT COMPLICATIONS Assessment/Plan Current Medications Generic Name Dose Route Start Last Admin Trade Name Freq PRN Reason Stop Dose Admin Acetaminophen 650 mg 02/07/17 10:48 Tylenol - PO Q4H PRN FEVER OR PAIN Amlodipine Besylate 10 mg 02/07/17 10:00 02/11/17 09:40 Norvasc - PO 10 mg DAILY [facility] Administration Atorvastatin Calcium 20 mg 02/07/17 22:00 02/10/17 22:42 Lipitor - PO 20 mg HS RONNIE Administration Collagenase 1 applic 02/07/17 16:00 02/11/17 09:43 Santyl - TP 1 applic DAILY [facility] Administration Dextrose 25 gm 02/07/17 10:48 D50w (Vial) - IVPUSH PRN PRN hypoglycemia Heparin Sodium (Porcine) 5,000 unit 02/07/17 06:15 02/11/17 06:16 Heparin - SQ 5,000 unit TID [facility]ONN[facility] Administration Lactated Ringer's 1,000 ml in 1,000 mls @ 75 mls/hr 02/07/17 11:00 02/11/17 06:12 Lactated Ringers Solution IV 75 mls/hr ASDIR [facility] Administration Piperacillin Sod/Tazobactam 100 mls @ 200 mls/hr 02/07/17 18:00 02/11/17 09: 42 Sod 3.375 gm/ Dextrose IVPB 200 mls/hr Q8H-IV [facility]ONNIE Administration Protocol Vancomycin HCl 1,000 mg/ 250 mls @ 200 mls/hr 02/07/17 12:00 02/10/17 12:48 Dextrose IVPB 200 mls/hr DAILY@1200 [facility] Administration Insulin Aspart 1 vial 02/11/17 14:43 Novolog Vial Sliding Scale - SQ ACHS [facility] Protocol Insulin Detemir 17 units 02/11/17 22:00 Levemir Vial SQ BID@0700,2200 [facility] Magnesium Oxide 400 mg 02/08/17 15:45 02/11/17 09:41 Mag-Ox - PO 400 mg BID [facility] Administration Methimazole 5 mg 02/08/17 15:45 02/11/17 09:42 Tapazole - PO 5 mg DAILY [facility] Administration Metoclopramide HCl 10 mg 02/10/17 14:16 Reglan Injection - IVPUSH Q6H PRN NAUSEA AND/OR VOMITING Metoprolol Succinate 25 mg 02/07/17 22:00 02/11/17 09:42 Toprol Xl - PO 25 mg BID [facility] Administration Ondansetron HCl 4 mg 02/07/17 06:30 02/07/17 21:13 Zofran Injection IVPUSH 4 mg Q6H PRN Administration NAUSEA AND/OR VOMITING Pantoprazole Sodium 40 mg 02/10/17 22:00 02/11/17 09:41 Protonix Iv IVPUSH 40 mg BID [facility] Administration Potassium Chloride 40 meq 02/08/17 16:00 02/11/17 09:38 K-Dur - PO 40 meq DAILY [facility] Administration Impression 1. SUSANNA 2. DM uncontrolled 3. DFU 4. vomiting 5. HTN 6. peripheral neuropathy 7. hypokalemia Plan - check bmp - renal function had been improving - cont wound care - cont abx - renal ultrasound reviewed - will follow Dr Mata
[2017-02-11] MEDS: ATORVASTATIN CA 20 MG TABLET (FP) PO SCH (22:17)
[2017-02-12] MEDS ORDERED: PT OWN MED DRAWER 7, Y5N ONE ×2 (01:41→09:13)
[2017-02-12] MEDS: LACTATED RINGERS SOLUTION 1,000 ML/1,000 ML INFUS.BAG IV SCH ×3 (01:59→13:38)
[2017-02-12] MEDS: PIPERACILLIN/TAZOB 3.375 GM 3.375 GM in DEXTROSE 5%-WATER - 100 ML IVPB SCH ×2 (01:59→10:42)
[2017-02-12] MEDS: INSULIN DETEMIR 100 UNITS/ML MDV SQ SCH ×2 (06:21→22:41)
[2017-02-12] MEDS: HEPARIN NA (PORCINE) 5,000 UNITS/ML 1ML VIAL SQ SCH ×3 (06:21→22:24)
[2017-02-12] MEDS: INSULIN SLIDING SCALE (NOVOLOG) 1 VIAL SQ SCH ×3 (06:22→22:39)
[2017-02-12] MEDS ORDERED: INSULIN (NOVOLOG) ASPART 100 UNITS/ML 10ML VIAL ONE ×2 (06:47→12:50)
[2017-02-12 07:24] LABS: ALBUMIN 2.5 g/dl (3.4-5.0); ANION GAP 5 (8-16); BLOOD UREA NITROGEN 17 mg/dL (7-18); CALCIUM 9.2 mg/dL (8.5-10.1); CHLORIDE 105 mmol/L (98-107); CO2 28 mmol/L (21-32); CREATININE 1.3 mg/dL (0.7-1.3); GLUCOSE,RANDOM 236 mg/dL (74-106); POTASSIUM 4.3 mmol/L (3.5-5.1); SGOT/AST 46 U/L (15-37); SGPT/ALT 55 U/L (12-78); SODIUM 138 mmol/L (136-145)
[2017-02-12 07:35] LABS: ALK PHOS 106 U/L (45-117); BILIRUBIN,TOTAL 0.4 mg/dL (0.2-1.0); TOT PROT 6.3 g/dl (6.4-8.2)
--- NOTE | 2017-02-12 10:32 | PN ---
Progress Note, Physician Chief Complaint: Diabetic ulcer, vomiting History of Present Illness: NAD, Nausea resolved IV abx IVF seen by Vascular, bedside debridement done, ordered santyl seen by endocrinology for better glycemic control subclinical hyperthyroid with low TSH and elevated FT4, on tapazole Thyroid ab negative, TSI pending seen by Nephrology- Potassium replaced, on IVF LR to avoid metabolic acidosis Seen by GI - Current Medication List Current Medications: Active Medications Acetaminophen (Tylenol -) 650 mg PO Q4H PRN PRN Reason: FEVER OR PAIN Amlodipine Besylate (Norvasc -) 10 mg PO DAILY [facility] Last Admin: 02/11/17 09:40 Dose: 10 mg Atorvastatin Calcium (Lipitor -) 20 mg PO HS [facility] Last Admin: 02/11/17 22:17 Dose: 20 mg Collagenase (Santyl -) 1 applic TP DAILY [facility] Last Admin: 02/11/17 09:43 Dose: 1 applic Dextrose (D50w (Vial) -) 25 gm IVPUSH PRN PRN PRN Reason: hypoglycemia Heparin Sodium (Porcine) (Heparin -) 5,000 unit SQ TID [facility] Last Admin: 02/12/17 06:21 Dose: 5,000 unit Lactated Ringer's (Lactated Ringers Solution) 1,000 ml in 1,000 mls @ 75 mls/ hr IV ASDIR [facility] Last Admin: 02/12/17 02:00 Dose: Not Given Piperacillin Sod/Tazobactam (Sod 3.375 gm/ Dextrose) 100 mls @ 200 mls/hr IVPB Q8H-IV [facility] PRN Reason: Protocol Last Admin: 02/12/17 01:59 Dose: 200 mls/hr Vancomycin HCl 1,000 mg/ (Dextrose) 250 mls @ 200 mls/hr IVPB DAILY@1200 [facility] Last Admin: 02/11/17 12:09 Dose: 200 mls/hr Insulin Aspart (Novolog Vial Sliding Scale -) 1 vial SQ ACHS [facility] PRN Reason: Protocol Last Admin: 02/12/17 06:22 Dose: 8 unit Insulin Detemir (Levemir Vial) 17 units SQ BID@0700,2200 [facility] Last Admin: 02/12/17 06:21 Dose: 17 unit Magnesium Oxide (Mag-Ox -) 400 mg PO BID [facility] Last Admin: 02/11/17 22:17 Dose: 400 mg Methimazole (Tapazole -) 5 mg PO DAILY [facility] Last Admin: 02/11/17 09:42 Dose: 5 mg Metoclopramide HCl (Reglan Injection -) 10 mg IVPUSH Q6H PRN PRN Reason: NAUSEA AND/OR VOMITING Metoprolol Succinate (Toprol Xl -) 25 mg PO BID [facility] Last Admin: 02/11/17 22:16 Dose: 25 mg Ondansetron HCl (Zofran Injection) 4 mg IVPUSH Q6H PRN PRN Reason: NAUSEA AND/OR VOMITING Last Admin: 02/07/17 21:13 Dose: 4 mg Pantoprazole Sodium (Protonix Iv) 40 mg IVPUSH BID [facility] Last Admin: 02/11/17 22:17 Dose: 40 mg Potassium Chloride (K-Dur -) 40 meq PO DAILY [facility] Last Admin: 02/11/17 09:38 Dose: 40 meq - Objective Vital Signs: Vital Signs Temperature 98.4 F 02/12/17 07:00 Pulse Rate 80 02/12/17 07:00 Respiratory Rate 20 02/12/17 07:00 Blood Pressure 151/89 02/12/17 07:00 O2 Sat by Pulse Oximetry (%) 96 02/11/17 21:00 Constitutional: Yes: Well Nourished, No Distress, Calm Cardiovascular: Yes: Regular Rate and Rhythm Respiratory: Yes: Regular Gastrointestinal: Yes: Normal Bowel Sounds, Soft, Abdomen, Obese Musculoskeletal: Yes: WNL Extremities: Yes: WNL Peripheral Pulses WNL: Yes Wound/Incision: Yes: Dressing Dry and Intact Neurological: Yes: Alert, Oriented Psychiatric: Yes: Alert, Oriented Labs: CBC, BMP 02/10/17 06:00 02/12/17 05:35 Problem List - Problems (1) Diabetic ulcer of right lower leg associated with diabetes mellitus due to underlying condition Assessment/Plan: -Wound culture positive for MRSA -IV abx -seen by ID -Wound care/vascular sx consult Code(s): E08.622 - DIABETES DUE TO UNDERLYING CONDITION W OTH SKIN ULCER; L97.919 - NON-PRS CHRONIC ULC UNSP PRT OF R LOW LEG W UNSP SEVERITY (2) Diabetes Assessment/Plan: -Endocrinology consult -A1c at 14.0 -Increased Levemir to 17 U BID by Endo -Novolog sliding scale Code(s): E11.9 - TYPE 2 DIABETES MELLITUS WITHOUT COMPLICATIONS (3) Hypokalemia Assessment/Plan: -normalized -PO Kcl daily -repeat labs in AM Code(s): E87.6 - HYPOKALEMIA (4) SUSANNA (acute kidney injury) Assessment/Plan: -Hydration LR -Nephrology consult Code(s): N17.9 - ACUTE KIDNEY FAILURE, UNSPECIFIED (5) Anemia Assessment/Plan: -Iron profile normal -thyroid profile shows subclinical hyperthyroidism, on Tapazole -vit b12 normal -stool OB positive -seen by GI, going for colonoscopy and EGD in AM -likely anemia of chronic disease -labs in am Code(s): D64.9 - ANEMIA, UNSPECIFIED (6) Hyperthyroidism Assessment/Plan: -mild in light of a deterioration in glycemic control -methimazole 5 mg po daily -repeat TSH Ft3 and Ft4 normal -endocrinology on board -Thab negative TSI pending Code(s): E05.90 - THYROTOXICOSIS, UNSP WITHOUT THYROTOXIC CRISIS OR STORM (7) Vomiting Assessment/Plan: -Improved with Reglan -gastroperisis? -GI consult -Abd U/S shows mild distention of GB with small calculi and sludge -Guaiac positve -Seen by GI -going for colonoscopy and EGD in AM Code(s): R11.10 - VOMITING, UNSPECIFIED Assessment/Plan see problem list
[2017-02-12] MEDS: amLODIPine BESYLATE 10 MG TABLET (FP) PO SCH (10:43)
[2017-02-12] MEDS: COLLAGENASE CLOSTRIDIUM HIST. 30 GRAMS TUBE TP SCH (10:43)
[2017-02-12] MEDS: METHIMAZOLE 5 MG TABLET (FP) PO SCH (10:43)
[2017-02-12] MEDS: POTASSIUM CHLORIDE TABS 20 MEQ TABLET.ER (FP) PO SCH (10:43)
[2017-02-12] MEDS: METOPROLOL SUCCINATE 25 MG TAB.SR.24H (FP) PO SCH ×2 (10:43→22:39)
[2017-02-12] MEDS: MAGNESIUM OXIDE 400 MG TABLET (FP) PO SCH ×2 (10:43→22:38)
[2017-02-12] MEDS: PANTOPRAZOLE SODIUM 40 MG VIAL IVPUSH SCH ×2 (10:52→22:42)
--- NOTE | 2017-02-12 11:16 | PN ---
Progress Note, Physician History of Present Illness: Chart reviewed. Clinically better. Tolerated breakfast w/o issues. - Current Medication List Current Medications: Active Medications Acetaminophen (Tylenol -) 650 mg PO Q4H PRN PRN Reason: FEVER OR PAIN Amlodipine Besylate (Norvasc -) 10 mg PO DAILY [facility] Last Admin: 02/12/17 10:43 Dose: 10 mg Atorvastatin Calcium (Lipitor -) 20 mg PO HS [facility] Last Admin: 02/11/17 22:17 Dose: 20 mg Collagenase (Santyl -) 1 applic TP DAILY [facility] Last Admin: 02/12/17 10:43 Dose: 1 applic Dextrose (D50w (Vial) -) 25 gm IVPUSH PRN PRN PRN Reason: hypoglycemia Heparin Sodium (Porcine) (Heparin -) 5,000 unit SQ TID [facility] Last Admin: 02/12/17 06:21 Dose: 5,000 unit Lactated Ringer's (Lactated Ringers Solution) 1,000 ml in 1,000 mls @ 75 mls/ hr IV ASDIR [facility] Last Admin: 02/12/17 02:00 Dose: Not Given Piperacillin Sod/Tazobactam (Sod 3.375 gm/ Dextrose) 100 mls @ 200 mls/hr IVPB Q8H-IV [facility] PRN Reason: Protocol Last Admin: 02/12/17 10:42 Dose: 200 mls/hr Vancomycin HCl 1,000 mg/ (Dextrose) 250 mls @ 200 mls/hr IVPB DAILY@1200 [facility] Last Admin: 02/11/17 12:09 Dose: 200 mls/hr Insulin Aspart (Novolog Vial Sliding Scale -) 1 vial SQ ACHS [facility] PRN Reason: Protocol Last Admin: 02/12/17 06:22 Dose: 8 unit Insulin Detemir (Levemir Vial) 17 units SQ BID@0700,2200 [facility] Last Admin: 02/12/17 06:21 Dose: 17 unit Magnesium Oxide (Mag-Ox -) 400 mg PO BID [facility] Last Admin: 02/12/17 10:43 Dose: 400 mg Methimazole (Tapazole -) 5 mg PO DAILY [facility] Last Admin: 02/12/17 10:43 Dose: 5 mg Metoclopramide HCl (Reglan Injection -) 10 mg IVPUSH Q6H PRN PRN Reason: NAUSEA AND/OR VOMITING Metoprolol Succinate (Toprol Xl -) 25 mg PO BID [facility] Last Admin: 02/12/17 10:43 Dose: 25 mg Ondansetron HCl (Zofran Injection) 4 mg IVPUSH Q6H PRN PRN Reason: NAUSEA AND/OR VOMITING Last Admin: 02/07/17 21:13 Dose: 4 mg Pantoprazole Sodium (Protonix Iv) 40 mg IVPUSH BID [facility] Last Admin: 02/12/17 10:52 Dose: 40 mg Potassium Chloride (K-Dur -) 40 meq PO DAILY [facility] Last Admin: 02/12/17 10:43 Dose: 40 meq - Objective Vital Signs: Vital Signs Temperature 98.4 F 02/12/17 07:00 Pulse Rate 80 02/12/17 07:00 Respiratory Rate 20 02/12/17 07:00 Blood Pressure 151/89 02/12/17 07:00 O2 Sat by Pulse Oximetry (%) 96 02/11/17 21:00 Constitutional: Yes: No Distress, Calm Eyes: Yes: Conjunctiva Clear HENT: Yes: Atraumatic Neck: Yes: Supple Cardiovascular: Yes: Regular Rate and Rhythm Respiratory: Yes: Regular Gastrointestinal: Yes: Normal Bowel Sounds, Soft. No: Ascites, Distention, Melena, Rectal Bleeding, Tenderness, Tenderness, Epigastrium, Tenderness, Rebound, Vomiting Neurological: Yes: Alert, Oriented Labs: CBC, BMP 02/10/17 06:00 02/12/17 05:35 Abnormal Lab Results 02/12/17 05:35 Anion Gap 5 L Random Glucose 236 H D AST 46 H D Total Protein 6.3 L Albumin 2.5 L Problem List - Problems (1) Acid reflux Code(s): K21.9 - GASTRO-ESOPHAGEAL REFLUX DISEASE WITHOUT ESOPHAGITIS Qualifiers: Esophagitis presence: esophagitis presence not specified Qualified Code(s) : K21.9 - Gastro-esophageal reflux disease without esophagitis (2) Dysphagia Code(s): R13.10 - DYSPHAGIA, UNSPECIFIED Qualifiers: Dysphagia type: esophageal phase Qualified Code(s): R13.10 - Dysphagia, unspecified (3) Hematochezia Code(s): K92.1 - MELENA (4) Vomiting Code(s): R11.10 - VOMITING, UNSPECIFIED (5) Dysphagia Code(s): R13.10 - DYSPHAGIA, UNSPECIFIED Assessment/Plan Dysphagia, nausea, vomitng, hemoccult positive stools, remote hx of EGD, never had colonoscopy As discussed with the patient, plan EGD and colonoscopy in AM
[2017-02-12] MEDS ORDERED: BISACODYL 5 MG TABLET.DR (FP) PO ONE (12:00)
[2017-02-12] MEDS ORDERED: PEG 3350/NA SULF BICARB CL/KCL 4000 ML SOLN.RECON PO ONE (12:00)
[2017-02-12] MEDS: VANCOMYCIN 1,000 MG in DEXTROSE 5%-WATER - 250 ML IVPB SCH (13:37)
--- NOTE | 2017-02-12 14:15 | PN ---
Progress Note, Physician History of Present Illness: S/P debridemnt of R LE infected ulcer/ abscess No c/o pain No c/o fever/ chills Afebrile Wound c/s MRSA/ Pseudomonas (s) Levaquin - Current Medication List Current Medications: Active Medications Acetaminophen (Tylenol -) 650 mg PO Q4H PRN PRN Reason: FEVER OR PAIN Amlodipine Besylate (Norvasc -) 10 mg PO DAILY [facility] Last Admin: 02/12/17 10:43 Dose: 10 mg Atorvastatin Calcium (Lipitor -) 20 mg PO HS [facility] Last Admin: 02/11/17 22:17 Dose: 20 mg Collagenase (Santyl -) 1 applic TP DAILY [facility] Last Admin: 02/12/17 10:43 Dose: 1 applic Dextrose (D50w (Vial) -) 25 gm IVPUSH PRN PRN PRN Reason: hypoglycemia Heparin Sodium (Porcine) (Heparin -) 5,000 unit SQ TID [facility] Last Admin: 02/12/17 13:42 Dose: 5,000 unit Lactated Ringer's (Lactated Ringers Solution) 1,000 ml in 1,000 mls @ 75 mls/ hr IV ASDIR [facility] Last Admin: 02/12/17 13:38 Dose: Not Given Piperacillin Sod/Tazobactam (Sod 3.375 gm/ Dextrose) 100 mls @ 200 mls/hr IVPB Q8H-IV [facility] PRN Reason: Protocol Last Admin: 02/12/17 10:42 Dose: 200 mls/hr Vancomycin HCl 1,000 mg/ (Dextrose) 250 mls @ 200 mls/hr IVPB DAILY@1200 [facility] Last Admin: 02/12/17 13:37 Dose: 200 mls/hr Insulin Aspart (Novolog Vial Sliding Scale -) 1 vial SQ ACHS [facility] PRN Reason: Protocol Last Admin: 02/12/17 13:38 Dose: 10 unit Insulin Detemir (Levemir Vial) 17 units SQ BID@0700,2200 [facility] Last Admin: 02/12/17 06:21 Dose: 17 unit Magnesium Oxide (Mag-Ox -) 400 mg PO BID [facility] Last Admin: 02/12/17 10:43 Dose: 400 mg Methimazole (Tapazole -) 5 mg PO DAILY [facility] Last Admin: 02/12/17 10:43 Dose: 5 mg Metoclopramide HCl (Reglan Injection -) 10 mg IVPUSH Q6H PRN PRN Reason: NAUSEA AND/OR VOMITING Metoprolol Succinate (Toprol Xl -) 25 mg PO BID [facility] Last Admin: 02/12/17 10:43 Dose: 25 mg Ondansetron HCl (Zofran Injection) 4 mg IVPUSH Q6H PRN PRN Reason: NAUSEA AND/OR VOMITING Last Admin: 02/07/17 21:13 Dose: 4 mg Pantoprazole Sodium (Protonix Iv) 40 mg IVPUSH BID [facility] Last Admin: 02/12/17 10:52 Dose: 40 mg Potassium Chloride (K-Dur -) 40 meq PO DAILY [facility] Last Admin: 02/12/17 10:43 Dose: 40 meq - Objective Vital Signs: Vital Signs Temperature 98.4 F 02/12/17 07:00 Pulse Rate 80 02/12/17 07:00 Respiratory Rate 20 02/12/17 07:00 Blood Pressure 151/89 02/12/17 07:00 O2 Sat by Pulse Oximetry (%) 96 02/11/17 21:00 Constitutional: Yes: No Distress Cardiovascular: Yes: Regular Rate and Rhythm, S1, S2 Respiratory: Yes: CTA Bilaterally Gastrointestinal: Yes: Normal Bowel Sounds, Soft, Abdomen, Obese Extremities: Yes: Other (Stasis dermatitis R LE + Ulceration without drainage) Labs: CBC, BMP 02/10/17 06:00 02/12/17 05:35 Assessment/Plan Infected R LE ulcer/ abscess S/P I&D Diabetes mellitus Substitute po levaquin Local wound care
--- NOTE | 2017-02-12 16:22 | PN ---
Progress Note, Physician History of Present Illness: Pt seen and examined at bedside. He is awake and alert. He denies nausea or vomiting. - Current Medication List Current Medications: Active Medications Acetaminophen (Tylenol -) 650 mg PO Q4H PRN PRN Reason: FEVER OR PAIN Amlodipine Besylate (Norvasc -) 10 mg PO DAILY [facility] Last Admin: 02/12/17 10:43 Dose: 10 mg Atorvastatin Calcium (Lipitor -) 20 mg PO HS [facility] Last Admin: 02/11/17 22:17 Dose: 20 mg Collagenase (Santyl -) 1 applic TP DAILY [facility] Last Admin: 02/12/17 10:43 Dose: 1 applic Dextrose (D50w (Vial) -) 25 gm IVPUSH PRN PRN PRN Reason: hypoglycemia Heparin Sodium (Porcine) (Heparin -) 5,000 unit SQ TID [facility] Last Admin: 02/12/17 13:42 Dose: 5,000 unit Lactated Ringer's (Lactated Ringers Solution) 1,000 ml in 1,000 mls @ 75 mls/ hr IV ASDIR [facility] Last Admin: 02/12/17 13:38 Dose: Not Given Insulin Aspart (Novolog Vial Sliding Scale -) 1 vial SQ ACHS [facility] PRN Reason: Protocol Last Admin: 02/12/17 13:38 Dose: 10 unit Insulin Detemir (Levemir Vial) 17 units SQ BID@0700,2200 [facility] Last Admin: 02/12/17 06:21 Dose: 17 unit Levofloxacin (Levaquin -) 500 mg PO DAILY@0600 [facility] Magnesium Oxide (Mag-Ox -) 400 mg PO BID [facility] Last Admin: 02/12/17 10:43 Dose: 400 mg Methimazole (Tapazole -) 5 mg PO DAILY [facility] Last Admin: 02/12/17 10:43 Dose: 5 mg Metoclopramide HCl (Reglan Injection -) 10 mg IVPUSH Q6H PRN PRN Reason: NAUSEA AND/OR VOMITING Metoprolol Succinate (Toprol Xl -) 25 mg PO BID [facility] Last Admin: 02/12/17 10:43 Dose: 25 mg Ondansetron HCl (Zofran Injection) 4 mg IVPUSH Q6H PRN PRN Reason: NAUSEA AND/OR VOMITING Last Admin: 02/07/17 21:13 Dose: 4 mg Pantoprazole Sodium (Protonix Iv) 40 mg IVPUSH BID [facility] Last Admin: 02/12/17 10:52 Dose: 40 mg Potassium Chloride (K-Dur -) 40 meq PO DAILY [facility] Last Admin: 02/12/17 10:43 Dose: 40 meq - Objective Vital Signs: Vital Signs Temperature 97.5 F L 02/12/17 15:06 Pulse Rate 85 02/12/17 15:06 Respiratory Rate 20 02/12/17 15:06 Blood Pressure 152/96 02/12/17 15:06 O2 Sat by Pulse Oximetry (%) 96 02/12/17 09:00 Constitutional: Yes: Calm Eyes: Yes: Conjunctiva Clear Cardiovascular: Yes: S1, S2 Respiratory: Yes: CTA Bilaterally Gastrointestinal: Yes: Soft Genitourinary: Yes: WNL Musculoskeletal: Yes: WNL Edema: No Wound/Incision: Yes: Open to air Psychiatric: Yes: Oriented Labs: CBC, BMP 02/10/17 06:00 02/12/17 05:35 Problem List - Problems (1) SUSANNA (acute kidney injury) Code(s): N17.9 - ACUTE KIDNEY FAILURE, UNSPECIFIED (2) Anemia Code(s): D64.9 - ANEMIA, UNSPECIFIED (3) Diabetic ulcer of right lower leg associated with diabetes mellitus due to underlying condition Code(s): E08.622 - DIABETES DUE TO UNDERLYING CONDITION W OTH SKIN ULCER; L97.919 - NON-PRS CHRONIC ULC UNSP PRT OF R LOW LEG W UNSP SEVERITY (4) Diabetes Code(s): E11.9 - TYPE 2 DIABETES MELLITUS WITHOUT COMPLICATIONS Assessment/Plan Current Medications Generic Name Dose Route Start Last Admin Trade Name Juliette PRN Reason Stop Dose Admin Acetaminophen 650 mg 02/07/17 10:48 Tylenol - PO Q4H PRN FEVER OR PAIN Amlodipine Besylate 10 mg 02/07/17 10:00 02/12/17 10:43 Norvasc - PO 10 mg DAILY [facility] Administration Atorvastatin Calcium 20 mg 02/07/17 22:00 02/11/17 22:17 Lipitor - PO 20 mg HS [facility] Administration Collagenase 1 applic 02/07/17 16:00 02/12/17 10:43 Santyl - TP 1 applic DAILY [facility] Administration Dextrose 25 gm 02/07/17 10:48 D50w (Vial) - IVPUSH PRN PRN hypoglycemia Heparin Sodium (Porcine) 5,000 unit 02/07/17 06:15 02/12/17 13:42 Heparin - SQ 5,000 unit TID [facility] Administration Lactated Ringer's 1,000 ml in 1,000 mls @ 75 mls/hr 02/07/17 11:00 02/12/17 13:38 Lactated Ringers Solution IV Not Given ASDIR [facility] Insulin Aspart 1 vial 02/11/17 14:43 02/12/17 13:38 Novolog Vial Sliding Scale - SQ 10 unit ACHS [facility] Administration Protocol Insulin Detemir 17 units 02/11/17 22:00 02/12/17 06:21 Levemir Vial SQ 17 unit BID@0700,2200 [facility] Administration Levofloxacin 500 mg 02/12/17 14:15 Levaquin - PO DAILY@0600 [facility] Magnesium Oxide 400 mg 02/08/17 15:45 02/12/17 10:43 Mag-Ox - PO 400 mg BID [facility] Administration Methimazole 5 mg 02/08/17 15:45 02/12/17 10:43 Tapazole - PO 5 mg DAILY [facility] Administration Metoclopramide HCl 10 mg 02/10/17 14:16 Reglan Injection - IVPUSH Q6H PRN NAUSEA AND/OR VOMITING Metoprolol Succinate 25 mg 02/07/17 22:00 02/12/17 10:43 Toprol Xl - PO 25 mg BID [facility] Administration Ondansetron HCl 4 mg 02/07/17 06:30 02/07/17 21:13 Zofran Injection IVPUSH 4 mg Q6H PRN Administration NAUSEA AND/OR VOMITING Pantoprazole Sodium 40 mg 02/10/17 22:00 02/12/17 10:52 Protonix Iv IVPUSH 40 mg BID [facility] Administration Potassium Chloride 40 meq 02/08/17 16:00 02/12/17 10:43 K-Dur - PO 40 meq DAILY [facility] Administration Laboratory Tests 02/12/17 05:35 Sodium 138 Potassium 4.3 Impression 1. SUSANNA 2. DM uncontrolled 3. DFU 4. vomiting 5. HTN 6. peripheral neuropathy 7. hypokalemia Plan - renal function is stabilizing - repeat labs in am - can hold po potassium - cont wound care - cont abx - will follow Dr Mata
[2017-02-12] MEDS: LEVOFLOXACIN 500 MG TABLET (FP) PO SCH (17:16)
[2017-02-12] MEDS ORDERED: POLYETHYLENE GLYCOL 3350 255 GM BTL PO ONE (19:45)
[2017-02-12] MEDS: ATORVASTATIN CA 20 MG TABLET (FP) PO SCH (22:38)
[2017-02-13] MEDS: HEPARIN NA (PORCINE) 5,000 UNITS/ML 1ML VIAL SQ SCH ×2 (05:19→13:40)
[2017-02-13] MEDS: LEVOFLOXACIN 500 MG TABLET (FP) PO SCH (06:41)
[2017-02-13] MEDS: INSULIN SLIDING SCALE (NOVOLOG) 1 VIAL SQ SCH (06:43)
[2017-02-13] MEDS: INSULIN DETEMIR 100 UNITS/ML MDV SQ SCH (06:43)
[2017-02-13 07:02] VITALS: BP 136/81; PULSE 79; TEMP 98.5
[2017-02-13 08:09] LABS: BASO % 1.1 % (0-2.0); HEMATOCRIT 31.7 % (35.4-49); HEMOGLOBIN 10.2 GM/dL (11.7-16.9); LYMPH % 37.2 % (8-40); MCH 25.8 pg (25.7-33.7); MEAN CELL VOLUME 80.7 fl (80-96); MEAN PLT VOLUME 8.1 fl (7.5-11.1); MONO % 9.8 % (3.8-10.2); NEUT % 46.9 % (42.8-82.8); PLATELET COUNT 264 K/MM3 (134-434); RBC 3.93 M/mm3 (4.00-5.60); RDW 14.1 % (11.9-15.9); WHITE BLOOD COUNT 5.2 K/mm3 (4.0-10.0)
[2017-02-13 08:22] LABS: ALBUMIN 2.6 g/dl (3.4-5.0); ANION GAP 7 (8-16); BLOOD UREA NITROGEN 14 mg/dL (7-18); CALCIUM 9.4 mg/dL (8.5-10.1); CHLORIDE 105 mmol/L (98-107); CO2 27 mmol/L (21-32); GLUCOSE,RANDOM 118 mg/dL (74-106); SODIUM 139 mmol/L (136-145)
[2017-02-13 08:28] LABS: ALK PHOS 110 U/L (45-117); BILIRUBIN,TOTAL 0.2 mg/dL (0.2-1.0); CREATININE 1.1 mg/dL (0.7-1.3); SGOT/AST 95 U/L (15-37); SGPT/ALT 99 U/L (12-78); TOT PROT 6.4 g/dl (6.4-8.2)
--- NOTE | 2017-02-13 10:15 | PN ---
Progress Note, Physician Chief Complaint: Diabetic ulcer, vomiting History of Present Illness: NAD, Nausea resolved po abx seen by endocrinology for better glycemic control subclinical hyperthyroid with low TSH and elevated FT4, on tapazole Seen by GI, couldn't do EGD and colonoscopy due to refusal to do colon prep - Current Medication List Current Medications: Active Medications Acetaminophen (Tylenol -) 650 mg PO Q4H PRN PRN Reason: FEVER OR PAIN Amlodipine Besylate (Norvasc -) 10 mg PO DAILY [facility] Last Admin: 02/12/17 10:43 Dose: 10 mg Atorvastatin Calcium (Lipitor -) 20 mg PO HS [facility] Last Admin: 02/12/17 22:38 Dose: 20 mg Collagenase (Santyl -) 1 applic TP DAILY [facility] Last Admin: 02/12/17 10:43 Dose: 1 applic Dextrose (D50w (Vial) -) 25 gm IVPUSH PRN PRN PRN Reason: hypoglycemia Heparin Sodium (Porcine) (Heparin -) 5,000 unit SQ TID [facility] Last Admin: 02/13/17 05:19 Dose: Not Given Lactated Ringer's (Lactated Ringers Solution) 1,000 ml in 1,000 mls @ 75 mls/ hr IV ASDIR [facility] Last Admin: 02/12/17 13:38 Dose: Not Given Insulin Aspart (Novolog Vial Sliding Scale -) 1 vial SQ ACHS [facility] PRN Reason: Protocol Last Admin: 02/13/17 06:43 Dose: Not Given Insulin Detemir (Levemir Vial) 17 units SQ BID@0700,2200 [facility] Last Admin: 02/13/17 06:43 Dose: Not Given Levofloxacin (Levaquin -) 500 mg PO DAILY@0600 [facility] Last Admin: 02/13/17 06:41 Dose: 500 mg Magnesium Oxide (Mag-Ox -) 400 mg PO BID [facility] Last Admin: 02/12/17 22:38 Dose: 400 mg Methimazole (Tapazole -) 5 mg PO DAILY [facility] Last Admin: 02/12/17 10:43 Dose: 5 mg Metoclopramide HCl (Reglan Injection -) 10 mg IVPUSH Q6H PRN PRN Reason: NAUSEA AND/OR VOMITING Metoprolol Succinate (Toprol Xl -) 25 mg PO BID [facility] Last Admin: 02/12/17 22:39 Dose: 25 mg Ondansetron HCl (Zofran Injection) 4 mg IVPUSH Q6H PRN PRN Reason: NAUSEA AND/OR VOMITING Last Admin: 02/07/17 21:13 Dose: 4 mg Pantoprazole Sodium (Protonix Iv) 40 mg IVPUSH BID [facility] Last Admin: 02/12/17 22:42 Dose: 40 mg - Objective Vital Signs: Vital Signs Temperature 98.5 F 02/13/17 07:00 Pulse Rate 79 02/13/17 07:00 Respiratory Rate 20 02/13/17 07:00 Blood Pressure 136/81 02/13/17 07:00 O2 Sat by Pulse Oximetry (%) 97 02/12/17 21:00 Constitutional: Yes: Well Nourished, No Distress, Calm Cardiovascular: Yes: Regular Rate and Rhythm Respiratory: Yes: Regular Musculoskeletal: Yes: WNL Extremities: Yes: WNL Wound/Incision: Yes: Dressing Dry and Intact Neurological: Yes: Alert, Oriented Psychiatric: Yes: Alert, Oriented Labs: CBC, BMP 02/13/17 06:30 02/13/17 06:30 Problem List - Problems (1) Diabetic ulcer of right lower leg associated with diabetes mellitus due to underlying condition Assessment/Plan: -Wound culture positive for MRSA -seen by ID -Wound care/vascular sx consult -D/C on PO abx Code(s): E08.622 - DIABETES DUE TO UNDERLYING CONDITION W OTH SKIN ULCER; L97.919 - NON-PRS CHRONIC ULC UNSP PRT OF R LOW LEG W UNSP SEVERITY (2) Diabetes Assessment/Plan: -Endocrinology consult -A1c at 14.0 -Increased Levemir to 17 U BID by Endo -Novolog sliding scale Code(s): E11.9 - TYPE 2 DIABETES MELLITUS WITHOUT COMPLICATIONS (3) Hypokalemia Assessment/Plan: -normalized -PO Kcl daily Code(s): E87.6 - HYPOKALEMIA (4) SUSANNA (acute kidney injury) Assessment/Plan: -Hydration LR -Nephrology consult Code(s): N17.9 - ACUTE KIDNEY FAILURE, UNSPECIFIED (5) Anemia Assessment/Plan: -Iron profile normal -thyroid profile shows subclinical hyperthyroidism, on Tapazole -vit b12 normal -stool OB positive -seen by GI, going for colonoscopy and EGD as outpatient -likely anemia of chronic disease -labs outpatient Code(s): D64.9 - ANEMIA, UNSPECIFIED (6) Hyperthyroidism Assessment/Plan: -mild in light of a deterioration in glycemic control -methimazole 5 mg po daily -repeat TSH Ft3 and Ft4 normal -endocrinology on board -Thab negative TSI pending Code(s): E05.90 - THYROTOXICOSIS, UNSP WITHOUT THYROTOXIC CRISIS OR STORM (7) Vomiting Assessment/Plan: resolved Code(s): R11.10 - VOMITING, UNSPECIFIED Assessment/Plan see problem list didn't go for EGD, Colonoscopy to refusal of colon prep. Will do it as outpatient.
--- NOTE | 2017-02-13 10:30 | PN ---
Progress Note, Physician History of Present Illness: Could not tolerate golyte. Solid stools per nurse this am after miralax/water/ dulcolax prep. Had UGI series study this am thus EGD will be postponed today. - Current Medication List Current Medications: Active Medications Acetaminophen (Tylenol -) 650 mg PO Q4H PRN PRN Reason: FEVER OR PAIN Amlodipine Besylate (Norvasc -) 10 mg PO DAILY [facility] Last Admin: 02/12/17 10:43 Dose: 10 mg Atorvastatin Calcium (Lipitor -) 20 mg PO HS [facility] Last Admin: 02/12/17 22:38 Dose: 20 mg Collagenase (Santyl -) 1 applic TP DAILY [facility] Last Admin: 02/12/17 10:43 Dose: 1 applic Dextrose (D50w (Vial) -) 25 gm IVPUSH PRN PRN PRN Reason: hypoglycemia Heparin Sodium (Porcine) (Heparin -) 5,000 unit SQ TID [facility] Last Admin: 02/13/17 05:19 Dose: Not Given Lactated Ringer's (Lactated Ringers Solution) 1,000 ml in 1,000 mls @ 75 mls/ hr IV ASDIR [facility] Last Admin: 02/12/17 13:38 Dose: Not Given Insulin Aspart (Novolog Vial Sliding Scale -) 1 vial SQ ACHS [facility] PRN Reason: Protocol Last Admin: 02/13/17 06:43 Dose: Not Given Insulin Detemir (Levemir Vial) 17 units SQ BID@0700,2200 [facility] Last Admin: 02/13/17 06:43 Dose: Not Given Levofloxacin (Levaquin -) 500 mg PO DAILY@0600 [facility] Last Admin: 02/13/17 06:41 Dose: 500 mg Magnesium Oxide (Mag-Ox -) 400 mg PO BID [facility] Last Admin: 02/12/17 22:38 Dose: 400 mg Methimazole (Tapazole -) 5 mg PO DAILY [facility] Last Admin: 02/12/17 10:43 Dose: 5 mg Metoclopramide HCl (Reglan Injection -) 10 mg IVPUSH Q6H PRN PRN Reason: NAUSEA AND/OR VOMITING Metoprolol Succinate (Toprol Xl -) 25 mg PO BID [facility] Last Admin: 02/12/17 22:39 Dose: 25 mg Ondansetron HCl (Zofran Injection) 4 mg IVPUSH Q6H PRN PRN Reason: NAUSEA AND/OR VOMITING Last Admin: 02/07/17 21:13 Dose: 4 mg Pantoprazole Sodium (Protonix Iv) 40 mg IVPUSH BID [facility] Last Admin: 02/12/17 22:42 Dose: 40 mg - Objective Vital Signs: Vital Signs Temperature 98.5 F 02/13/17 07:00 Pulse Rate 79 02/13/17 07:00 Respiratory Rate 20 02/13/17 07:00 Blood Pressure 136/81 02/13/17 07:00 O2 Sat by Pulse Oximetry (%) 97 02/12/17 21:00 Labs: CBC, BMP 02/13/17 06:30 02/13/17 06:30 Abnormal Lab Results 02/13/17 02/13/17 06:30 06:30 RBC 3.93 L Hgb 10.2 L Hct 31.7 L Eosinophils % 5.0 H Anion Gap 7 L Random Glucose 118 H D AST 95 H D ALT 99 H D Albumin 2.6 L Problem List - Problems (1) Acid reflux Code(s): K21.9 - GASTRO-ESOPHAGEAL REFLUX DISEASE WITHOUT ESOPHAGITIS Qualifiers: Esophagitis presence: esophagitis presence not specified Qualified Code(s) : K21.9 - Gastro-esophageal reflux disease without esophagitis (2) Dysphagia Code(s): R13.10 - DYSPHAGIA, UNSPECIFIED Qualifiers: Dysphagia type: esophageal phase Qualified Code(s): R13.10 - Dysphagia, unspecified (3) Hematochezia Code(s): K92.1 - MELENA (4) Vomiting Code(s): R11.10 - VOMITING, UNSPECIFIED (5) Dysphagia Code(s): R13.10 - DYSPHAGIA, UNSPECIFIED Assessment/Plan Dysphagia, nausea, vomitng, hemoccult positive stools, remote hx of EGD, never had colonoscopy follow UGI series plan EGD and colonoscopy as op, if d/c'd today.
[2017-02-13] MEDS: MAGNESIUM OXIDE 400 MG TABLET (FP) PO SCH (13:38)
[2017-02-13] MEDS: METOPROLOL SUCCINATE 25 MG TAB.SR.24H (FP) PO SCH (13:39)
[2017-02-13] MEDS: PANTOPRAZOLE SODIUM 40 MG VIAL IVPUSH SCH ×2 (13:39→13:53)
[2017-02-13] MEDS: LACTATED RINGERS SOLUTION 1,000 ML/1,000 ML INFUS.BAG IV SCH (13:39)
[2017-02-13] MEDS: amLODIPine BESYLATE 10 MG TABLET (FP) PO SCH (13:39)
[2017-02-13] MEDS: COLLAGENASE CLOSTRIDIUM HIST. 30 GRAMS TUBE TP SCH (13:44)
[2017-02-13] MEDS: METHIMAZOLE 5 MG TABLET (FP) PO SCH (13:45)
[2017-02-13] MEDS ORDERED: INSULIN (NOVOLOG) ASPART 100 UNITS/ML 10ML VIAL ONE (13:56)
--- NOTE | 2017-02-13 14:59 | PN ---
Progress Note, Physician History of Present Illness: Pt seen and examined at bedside. He is awake and alert. He denies shortness of breath. He says that vomiting has resolved. - Current Medication List Current Medications: Active Medications Acetaminophen (Tylenol -) 650 mg PO Q4H PRN PRN Reason: FEVER OR PAIN Amlodipine Besylate (Norvasc -) 10 mg PO DAILY [facility] Last Admin: 02/13/17 13:39 Dose: 10 mg Atorvastatin Calcium (Lipitor -) 20 mg PO HS [facility] Last Admin: 02/12/17 22:38 Dose: 20 mg Collagenase (Santyl -) 1 applic TP DAILY [facility] Last Admin: 02/13/17 13:44 Dose: Not Given Dextrose (D50w (Vial) -) 25 gm IVPUSH PRN PRN PRN Reason: hypoglycemia Heparin Sodium (Porcine) (Heparin -) 5,000 unit SQ TID [facility] Last Admin: 02/13/17 13:40 Dose: 5,000 unit Lactated Ringer's (Lactated Ringers Solution) 1,000 ml in 1,000 mls @ 75 mls/ hr IV ASDIR [facility] Last Admin: 02/13/17 13:39 Dose: Not Given Insulin Aspart (Novolog Vial Sliding Scale -) 1 vial SQ ACHS [facility] PRN Reason: Protocol Last Admin: 02/13/17 06:43 Dose: Not Given Insulin Detemir (Levemir Vial) 17 units SQ BID@0700,2200 [facility] Last Admin: 02/13/17 06:43 Dose: Not Given Levofloxacin (Levaquin -) 500 mg PO DAILY@0600 [facility] Last Admin: 02/13/17 06:41 Dose: 500 mg Magnesium Oxide (Mag-Ox -) 400 mg PO BID [facility] Last Admin: 02/13/17 13:38 Dose: 400 mg Methimazole (Tapazole -) 5 mg PO DAILY [facility] Last Admin: 02/13/17 13:45 Dose: Not Given Metoclopramide HCl (Reglan Injection -) 10 mg IVPUSH Q6H PRN PRN Reason: NAUSEA AND/OR VOMITING Metoprolol Succinate (Toprol Xl -) 25 mg PO BID [facility] Last Admin: 02/13/17 13:39 Dose: 25 mg Ondansetron HCl (Zofran Injection) 4 mg IVPUSH Q6H PRN PRN Reason: NAUSEA AND/OR VOMITING Last Admin: 12/28/17 21:13 Dose: 4 mg Pantoprazole Sodium (Protonix Iv) 40 mg IVPUSH BID [facility] Last Admin: 02/13/17 13:53 Dose: Not Given - Objective Vital Signs: Vital Signs Temperature 98.5 F 02/13/17 07:00 Pulse Rate 79 02/13/17 07:00 Respiratory Rate 20 02/13/17 07:00 Blood Pressure 136/81 02/13/17 07:00 O2 Sat by Pulse Oximetry (%) 97 02/12/17 21:00 Constitutional: Yes: Calm Eyes: Yes: Conjunctiva Clear HENT: Yes: Atraumatic Neck: Yes: Supple Cardiovascular: Yes: S1, S2 Respiratory: Yes: CTA Bilaterally Gastrointestinal: Yes: Soft Genitourinary: Yes: WNL Musculoskeletal: Yes: WNL Edema: No Wound/Incision: Yes: Dressing Dry and Intact Neurological: Yes: Oriented Psychiatric: Yes: Oriented Labs: CBC, BMP 02/13/17 06:30 02/13/17 06:30 Problem List - Problems (1) SUSANNA (acute kidney injury) Code(s): N17.9 - ACUTE KIDNEY FAILURE, UNSPECIFIED (2) Anemia Code(s): D64.9 - ANEMIA, UNSPECIFIED (3) Diabetic ulcer of right lower leg associated with diabetes mellitus due to underlying condition Code(s): E08.622 - DIABETES DUE TO UNDERLYING CONDITION W OTH SKIN ULCER; L97.919 - NON-PRS CHRONIC ULC UNSP PRT OF R LOW LEG W UNSP SEVERITY (4) Diabetes Code(s): E11.9 - TYPE 2 DIABETES MELLITUS WITHOUT COMPLICATIONS Assessment/Plan Current Medications Generic Name Dose Route Start Last Admin Trade Name Freq PRN Reason Stop Dose Admin Acetaminophen 650 mg 02/07/17 10:48 Tylenol - PO Q4H PRN FEVER OR PAIN Amlodipine Besylate 10 mg 02/07/17 10:00 02/13/17 13:39 Norvasc - PO 10 mg DAILY [facility] Administration Atorvastatin Calcium 20 mg 02/07/17 22:00 02/12/17 22:38 Lipitor - PO 20 mg HS [facility] Administration Collagenase 1 applic 02/07/17 16:00 02/13/17 13:44 Santyl - TP Not Given DAILY [facility] Dextrose 25 gm 02/07/17 10:48 D50w (Vial) - IVPUSH PRN PRN hypoglycemia Heparin Sodium (Porcine) 5,000 unit 02/07/17 06:15 02/13/17 13:40 Heparin - SQ 5,000 unit TID [facility] Administration Lactated Ringer's 1,000 ml in 1,000 mls @ 75 mls/hr 02/07/17 11:00 02/13/17 13:39 Lactated Ringers Solution IV Not Given ASDIR [facility] Insulin Aspart 1 vial 02/11/17 14:43 02/13/17 06:43 Novolog Vial Sliding Scale - SQ Not Given ACHS [facility] Protocol Insulin Detemir 17 units 02/11/17 22:00 02/13/17 06:43 Levemir Vial SQ Not Given BID@0700,2200 [facility] Levofloxacin 500 mg 02/12/17 14:15 02/13/17 06:41 Levaquin - PO 500 mg DAILY@0600 [facility] Administration Magnesium Oxide 400 mg 02/08/17 15:45 02/13/17 13:38 Mag-Ox - PO 400 mg BID [facility] Administration Methimazole 5 mg 02/08/17 15:45 02/13/17 13:45 Tapazole - PO Not Given DAILY [facility] Metoclopramide HCl 10 mg 02/10/17 14:16 Reglan Injection - IVPUSH Q6H PRN NAUSEA AND/OR VOMITING Metoprolol Succinate 25 mg 02/07/17 22:00 02/13/17 13:39 Toprol Xl - PO 25 mg BID [facility] Administration Ondansetron HCl 4 mg 02/07/17 06:30 02/07/17 21:13 Zofran Injection IVPUSH 4 mg Q6H PRN Administration NAUSEA AND/OR VOMITING Pantoprazole Sodium 40 mg 02/10/17 22:00 02/13/17 13:53 Protonix Iv IVPUSH Not Given BID [facility] Impression 1. SUSANNA 2. DM uncontrolled 3. DFU 4. vomiting 5. HTN 6. peripheral neuropathy 7. hypokalemia Plan - renal function is stable - will see in office for workup - can stop fluids - potassium is stable - avoid nsaids - cont wound care - cont abx - will follow Dr Mata
[2017-02-13 16:20] LABS: THYROID STIM IMMUNOGLOBULIN 58 % (0-139)
--- NOTE | 2017-02-18 12:44 | EKG ---
Test Reason : Blood Pressure : / mmHG Vent. Rate : 096 BPM Atrial Rate : 096 BPM P-R Int : 182 ms QRS Dur : 082 ms QT Int : 326 ms P-R-T Axes : 081 001 002 degrees QTc Int : 411 ms NORMAL SINUS RHYTHM MODERATE VOLTAGE CRITERIA FOR LVH, MAY BE NORMAL VARIANT NONSPECIFIC T WAVE ABNORMALITY ABNORMAL ECG WHEN COMPARED WITH ECG OF 12-OCT-2015 09:06, NO SIGNIFICANT CHANGE WAS FOUND Confirmed by AMELIA RENO, TOM ([id number]) on 02/18/2017 12:43:39 PM Referred By: Confirmed By:TOM CISNEROS MD
== END 2017-02-13 15:43 | disposition home or self-care (01) | DRG 623 ==
LOC: JER 14:24 → JERBED 21:23 → J7W 02-07 09:06
PROVIDERS: ADMIT Family Medicine; ATTEND Family Medicine
PROC: 0JBN0ZZ Excision of Right Lower Leg Subcutaneous Tissue and Fascia, Open Approach (ICD-10-PCS; principal; 2017-02-07)
PROC: 0Y9H0ZX Drainage of Right Lower Leg, Open Approach, Diagnostic (ICD-10-PCS; 2017-02-07)
DX: E11.622 Type 2 diabetes mellitus with other skin ulcer (principal); L97.818 Non-pressure chronic ulcer of other part of right lower leg with other specified severity; L03.115 Cellulitis of right lower limb; L02.415 Cutaneous abscess of right lower limb; K92.1 Melena; E11.42 Type 2 diabetes mellitus with diabetic polyneuropathy; I10 Essential (primary) hypertension; E78.5 Hyperlipidemia, unspecified; F32.9 Major depressive disorder, single episode, unspecified; E11.65 Type 2 diabetes mellitus with hyperglycemia; N17.9 Acute kidney failure, unspecified; E87.6 Hypokalemia; E05.90 Thyrotoxicosis, unspecified without thyrotoxic crisis or storm; D63.8 Anemia in other chronic diseases classified elsewhere; R11.10 Vomiting, unspecified; K21.9 Gastro-esophageal reflux disease without esophagitis; K82.8 Other specified diseases of gallbladder; K80.70 Calculus of gallbladder and bile duct without cholecystitis without obstruction; R13.10 Dysphagia, unspecified; Z89.421 Acquired absence of other right toe(s); Z79.4 Long term (current) use of insulin
CPT/HCPCS: 36415; 71010-TC; 73590-TC-RT; 74220-TC; 74240-TC; 76705-TC; 76775-TC; 80048; 80053; 80061; 81003; 81015; 82150; 82272; 82550; 82607; 82728; 83036; 83540; 83550; 83690; 83721; 83735; 84439; 84443; 84445; 84481; 84484; 85025; 85651; 86140; 86376; 87040; 87070; 87186; 87205; 90688; 93005; 93010; 97116-GP; 97161-GP; 99284-25; G0008; G0480; J1644

== ENCOUNTER 2017-03-22 14:40 | Emergency (ER) | payer OTHER ==
--- NOTE | 2017-03-22 14:48 | PDOC ---
Rapid Medical Evaluation Time Seen by Provider: 03/22/17 14:46 Medical Evaluation: Allergies Allergy/AdvReac Type Severity Reaction Status Date / Time No Known Drug Allergies Allergy Verified 02/06/17 14:47 I have performed a brief in-person evaluation of this patient. The patient presents with a chief complaint of: sent by PCP for hyperglycemia ( glucose > 400); wants to r/o DKA Pertinent physical exam findings: none I have ordered the following: labs, UA/culture, EKG The patient will proceed to the ED for further evaluation.
[2017-03-22 14:49] VITALS: TEMP 98.1; BMI 32.5
[2017-03-22] MEDS ORDERED: ASPIRIN 81 MG CHEWABLE TABLETS PO ONE (15:18)
[2017-03-22] MEDS ORDERED: ASPIRIN 81 MG CHEWABLE TABLETS ONE (15:26)
[2017-03-22 15:29] LABS: BASO % 0.8 % (0-2.0); EOS % 2.3 % (0-4.5); HEMATOCRIT 33.6 % (35.4-49); HEMOGLOBIN 11.1 GM/dL (11.7-16.9); LYMPH % 28.1 % (8-40); MCH 26.9 pg (25.7-33.7); MCHC 33.1 g/dl (32.0-35.9); MEAN CELL VOLUME 81.1 fl (80-96); MEAN PLT VOLUME 8.2 fl (7.5-11.1); MONO % 6.6 % (3.8-10.2); NEUT % 62.2 % (42.8-82.8); PLATELET COUNT 230 K/MM3 (134-434); RBC 4.14 M/mm3 (4.00-5.60); RDW 14.9 % (11.9-15.9); WHITE BLOOD COUNT 4.3 K/mm3 (4.0-10.0)
--- NOTE | 2017-03-22 15:34 | PDOC ---
Attending Attestation - HPI HPI: 03/22/17 16:49 The patient is a 51 year old female with a significant PMH of who presents to the emergency department from the hyperbarics chamber for evaluation of elevated blood sugar (over 400). He denies any other complaints. Allergies: NKDA <Ash Mason - Last Filed: 03/22/17 17:29> - Resident Resident Name: Gilbert Lewis - ED Attending Attestation I have performed the following: I have examined & evaluated the patient, The case was reviewed & discussed with the resident, I agree w/resident's findings & plan, Exceptions are as noted - Physicial Exam PE: GENERAL: Awake, alert, and fully oriented, in no acute distress HEAD: No signs of trauma EYES: PERRLA, EOMI, sclera anicteric, conjunctiva clear ENT: Auricles normal inspection, hearing grossly normal, nares patent, oropharynx clear without exudates. Moist mucosa NECK: Normal ROM, supple, no lymphadenopathy, JVD, or masses LUNGS: Breath sounds equal, clear to auscultation bilaterally. No wheezes, and no crackles HEART: Regular rate and rhythm, normal S1 and S2, no murmurs, rubs or gallops ABDOMEN: Soft, nontender, normoactive bowel sounds. No guarding, no rebound. No masses EXTREMITIES: R velazquez lesion with serosanguinous drainage, no signs of cellulitis. Normal range of motion. No clubbing or cyanosis. No cords, erythema , or tenderness NEUROLOGICAL: Cranial nerves II through XII grossly intact. Normal speech, normal gait SKIN: Warm, Dry, normal turgor, no rashes or lesions noted. - Medical Decision Making Pt with hyperglycemia, improving on arrival in ED. History of poor compliance with regimen (last A1C was ~14). No evidence of DKA. No active infections at present. Stable for DC home. <Fidelia Harden - Last Filed: 03/25/17 14:08>
--- NOTE | 2017-03-22 15:46 | PDOC ---
History of Present Illness - General Chief Complaint: Blood Sugar Problem Stated Complaint: SENT BY PCP Time Seen by Provider: 03/22/17 14:46 History Source: Patient Exam Limitations: No Limitations - History of Present Illness Initial Comments: 03/22/17 15:40 The patient is a 51M with a PMH of HTN, HLD, and DM who presents to the ER after being found to have an elevated blood glucose at the hyperbarics chamber. The patient states that he was in his normal state of health today when he was going in for his hyperbarics treatment. Before his treatment, they checked his blood glucose and it was read as high (450's). The patient was then offered the chance to get evaluated in the ER and he accepted. He denies any current complaints including fever, chills, CP, SOB, abdominal pain, nausea, vomiting, diarrhea, constipation, palpitations, lightheadedness. Past History - Past Medical History Allergies/Adverse Reactions: Allergies Allergy/AdvReac Type Severity Reaction Status Date / Time No Known Drug Allergies Allergy Verified 03/22/17 14:47 Home Medications: Ambulatory Orders Aspirin [ASA -] 81 mg PO DAILY 05/27/14 Amlodipine Besylate [Norvasc -] 10 mg PO DAILY tablet 06/03/14 Metoprolol Succinate [Toprol XL -] 25 mg PO BID tab.sr.24h 06/03/14 Sertraline HCl [Zoloft -] 150 mg PO DAILY tablet 06/03/14 Atorvastatin Ca [Lipitor] 20 mg PO HS tablet 08/13/15 Oxycodone HCl/Acetaminophen [Percocet 5-325 mg Tablet] 1 - 2 tab PO Q4H PRN #14 tablet MDD 6 01/05/17 Cyclobenzaprine HCl [Flexeril 10 mg] 10 mg PO BID PRN #14 tablet 01/06/17 Ibuprofen [Motrin -] 400 mg PO Q6H PRN #18 tablet MDD 4 01/08/17 Collagenase Clostridium Hist. [Santyl -] 1 applic TP DAILY #1 tube 02/13/17 Insulin (Levemir) [Levemir Flexpen -] 17 units SQ BID #1 pen 02/13/17 Magnesium Oxide [Magnesium] 400 mg PO BID #60 capsule 02/13/17 Methimazole [Tapazole -] 5 mg PO DAILY #30 tablet 02/13/17 Potassium Chloride [K-Dur -] 40 meq PO DAILY #30 tablet.er 02/13/17 Anemia: No Asthma: No Cancer: No Cardiac Disorders: No CVA: No COPD: No CHF: No DVT: No Dementia: No Diabetes: Yes (IDDM) GI Disorders: No Disorders: No HTN: Yes Hypercholesterolemia: Yes Liver Disease: No Seizures: No Thyroid Disease: No Lung CA: No - Surgical History Abdominal Surgery: No Appendectomy: No Cardiac Surgery: No Cholecystectomy: No Lung Surgery: No Neurologic Surgery: No Orthopedic Surgery: Yes (LEFT MIDDLE TOE OSTEOMYELITIS) - Immunization History Td Vaccination: Yes Immunization Up to Date: Yes - Suicide/Smoking/Psychosocial Hx Smoking Status: No Smoking History: Never smoked Have you smoked in the past 12 months: No Number of Cigarettes Smoked Daily: 0 Information on smoking cessation initiated: No Hx Alcohol Use: No Drug/Substance Use Hx: No Substance Use Type: None Hx Substance Use Treatment: No Review of Systems - Review of Systems Able to Perform ROS?: Yes Comments:: 03/22/17 17:07 GENERAL/CONSTITUTIONAL: No fever or chills. No weakness. HEAD, EYES, EARS, NOSE AND THROAT: No change in vision. No ear pain or discharge. No sore throat. CARDIOVASCULAR: No chest pain, palpitations, or lightheadedness. RESPIRATORY: No cough, wheezing, shortness of breath, or hemoptysis. GASTROINTESTINAL: No nausea, vomiting, diarrhea, constipation, or abdominal pain. GENITOURINARY: No dysuria, frequency, hematuria, or change in urination. MUSCULOSKELETAL: No joint or muscle swelling or pain. No neck or back pain. SKIN: No rash or lesions. NEUROLOGIC: No headache, numbness, tingling, weakness, loss of consciousness, or change in strength/sensation. ENDOCRINE: No increased thirst. No abnormal weight change. HEMATOLOGIC/LYMPHATIC: No anemia, easy bleeding, or history of blood clots. ALLERGIC/IMMUNOLOGIC: No hives or skin allergy. Is the patient limited Maltese proficient: No *Physical Exam - Vital Signs Last Vital Signs Temp Pulse Resp BP Pulse Ox 98.1 F 88 18 131/81 100 03/22/17 14:47 03/22/17 14:47 03/22/17 14:47 03/22/17 14:47 03/22/17 14:47 - Physical Exam Comments: 03/22/17 17:08 GENERAL: Well developed, well nourished. Awake and alert. No acute distress. HEENT: Normocephalic, atraumatic. Hearing grossly normal. Moist mucous membranes. PERRLA, EOMI. No conjunctival pallor. Sclera are non-icteric. NECK: Supple. Full ROM. No JVD. CARDIOVASCULAR: Regular rate and rhythm. No murmurs, rubs, or gallops. PULMONARY: No evidence of respiratory distress. Lungs clear to auscultation bilaterally. No wheezing, rales or rhonchi. ABDOMINAL: Soft. Non-tender. Non-distended. No rebound or guarding. GENITOURINARY: No CVA tenderness bilaterally. MUSCULOSKELETAL: Normal range of motion at all joints. No bony deformities or tenderness. EXTREMITIES: No cyanosis. No clubbing. No edema. No calf tenderness. SKIN: Warm and dry. Normal capillary refill. No rashes. No jaundice. NEUROLOGICAL: Alert, awake, appropriate. Cranial nerves 2-12 intact. Normal speech. Gait is normal without ataxia. PSYCHIATRIC: Cooperative. Good eye contact. Appropriate mood and affect. Heart Score/ECG Review - History History: Slightly suspicious - Electrocardiogram EKG: Significant ST-depression - Age Age: 45-65 - Risk Factors Risk Factors Heart Score: Yes Hx Hypercholesterolemia, Yes Hx Hypertension, Yes Hx Diabetes Based on the list above the patient has:: >/=3 risk factors or Hx atherosclerotic disease - Troponin Troponin: </= normal limit - Score Heart Score - Total: 5 #1 General ECG Interpretation: Sinus Rhythm, Normal Rate, Normal Intervals, No acute ischemic changes Compared to previous ECG there are: No significant change 03/22/17 17:09 NSR Rate 87 AZ 150 QRS 92 QTc 416 No acute ischemic changes noted. ED Treatment Course - LABORATORY CBC & Chemistry Diagram: 03/22/17 15:05 03/22/17 15:05 - ADDITIONAL ORDERS Additional order review: 03/22/17 15:05 RBC 4.14 MCV 81.1 MCHC 33.1 RDW 14.9 MPV 8.2 Neutrophils % 62.2 D Lymphocytes % 28.1 D Monocytes % 6.6 Eosinophils % 2.3 Basophils % 0.8 - RADIOLOGY Radiology Studies Ordered: Category Date Time Status CHEST PA & LAT [RAD] Stat Radiology 02/09/18 15:18 Ordered - Medications Given in the ED: ED Medications Discontinued Medications Generic Name Dose Route Start Last Admin Trade Name Juliette PRN Reason Stop Dose Admin Aspirin 162 mg 03/22/17 15:18 03/22/17 15:29 Asa - PO 03/22/17 15:19 162 mg ONCE ONE Administration Medical Decision Making - Medical Decision Making 03/22/17 17:09 The patient is a 51M with a PMH of HTN, HLD, and DM who presents to the ER with elevated BG. EKG unchanged from previous, discussed with Dr. Wynne who is not concerned for acute pathology. CP workup ordered. Pending labs. Will monitor closely. 03/22/17 18:53 CXR negative. Labs negative including acetone. UA indicates glucosuria. Will d/ c pt with f/u w/ PCP. *DC/Admit/Observation/Transfer Diagnosis at time of Disposition: Hyperglycemia - Discharge Dispostion Disposition: HOME Condition at time of disposition: Stable Admit: No - Referrals - Patient Instructions Printed Discharge Instructions: DI for Hyperglycemia -- Adult Additional Instructions: Please return to the ER if symptoms persist, worsen, or new symptoms arise. Please follow up with your primary care physician in 2-3 days. Please take all of your medications as prescribed! Please return to the ER if you have any signs or symptoms of chest pain, shortness of breath, uncontrollable fever, chills, nausea, vomiting, numbness, tingling, or weakness in any part of your body, changes in vision, or slurred speech. - Post Discharge Activity
[2017-03-22 15:48] LABS: BASO % 1.1 % (0-2.0); EOS % 2.5 % (0-4.5); HEMATOCRIT 33.5 % (35.4-49); HEMOGLOBIN 10.8 GM/dL (11.7-16.9); LYMPH % 29.5 % (8-40); MCH 26.3 pg (25.7-33.7); MCHC 32.4 g/dl (32.0-35.9); MEAN CELL VOLUME 81.2 fl (80-96); MEAN PLT VOLUME 8.3 fl (7.5-11.1); MONO % 7.4 % (3.8-10.2); NEUT % 59.5 % (42.8-82.8); PLATELET COUNT 222 K/MM3 (134-434); RBC 4.12 M/mm3 (4.00-5.60); WHITE BLOOD COUNT 5.2 K/mm3 (4.0-10.0)
[2017-03-22 16:00] LABS: INR 0.94 (0.82-1.09); PROTHROMBIN TIME (PATIENT) 10.6 SEC (9.98-11.88)
[2017-03-22 16:04] LABS: URINE APPEARANCE CLEAR; URINE BILIRUBIN NEGATIVE (NEGATIVE); URINE BLOOD NEGATIVE (NEGATIVE); URINE COLOR STRAW; URINE GLUCOSE (UA) 3+ (NEGATIVE); URINE KETONE NEGATIVE (NEGATIVE); URINE LEUK ESTERASE NEGATIVE (NEGATIVE); URINE NITRITE NEGATIVE (NEGATIVE); URINE PROTEIN NEGATIVE (NEGATIVE); URINE UROBILINOGEN NEGATIVE mg/dL (0.2-1.0)
[2017-03-22 16:53] LABS: ALBUMIN 3.6 g/dl (3.4-5.0); ANION GAP 7 (8-16); BLOOD UREA NITROGEN 37 mg/dL (7-18); CALCIUM 9.4 mg/dL (8.5-10.1); CHLORIDE 103 mmol/L (98-107); CO2 26 mmol/L (21-32); CREATININE 1.3 mg/dL (0.7-1.3); GLUCOSE,RANDOM 293 mg/dL (74-106); SGPT/ALT 28 U/L (12-78); SODIUM 136 mmol/L (136-145)
[2017-03-22 16:54] LABS: ALBUMIN 3.6 g/dl (3.4-5.0); ANION GAP 10 (8-16); BLOOD UREA NITROGEN 38 mg/dL (7-18); CALCIUM 9.6 mg/dL (8.5-10.1); CHLORIDE 101 mmol/L (98-107); CO2 25 mmol/L (21-32); POTASSIUM 4.3 mmol/L (3.5-5.1); SODIUM 136 mmol/L (136-145)
[2017-03-22 16:58] LABS: ALK PHOS 85 U/L (45-117); BILIRUBIN,TOTAL 0.6 mg/dL (0.2-1.0); TOT PROT 7.5 g/dl (6.4-8.2)
[2017-03-22 16:59] LABS: MAGNESIUM 1.5 mg/dL (1.8-2.4); POTASSIUM 4.5 mmol/L (3.5-5.1); SGOT/AST 21 U/L (15-37)
[2017-03-22 16:59] LABS: ALK PHOS 86 U/L (45-117); BILIRUBIN,TOTAL 0.6 mg/dL (0.2-1.0); CREATININE 1.3 mg/dL (0.7-1.3); SGOT/AST 15 U/L (15-37); SGPT/ALT 29 U/L (12-78); TOT PROT 7.4 g/dl (6.4-8.2)
[2017-03-22 17:25] LABS: GLUCOSE,RANDOM 312 mg/dL (74-106)
[2017-03-22 18:35] LABS: ACETONE SERUM NEGATIVE (NEGATIVE)
[2017-03-22 19:14] VITALS: BP 145/79; PULSE 69
--- NOTE | 2017-03-23 08:51 | EKG ---
Test Reason : Blood Pressure : / mmHG Vent. Rate : 087 BPM Atrial Rate : 087 BPM P-R Int : 150 ms QRS Dur : 092 ms QT Int : 346 ms P-R-T Axes : 001 -14 -22 degrees QTc Int : 416 ms NORMAL SINUS RHYTHM POSSIBLE LEFT ATRIAL ENLARGEMENT LATERAL INFARCT , AGE UNDETERMINED ABNORMAL ECG WHEN COMPARED WITH ECG OF 07-FEB-2017 07:51, LATERAL INFARCT IS NOW PRESENT Confirmed by JC RENO, PATTI ([id number]) on 03/23/2017 8:50:50 AM Referred By: Confirmed By:PATTI GREENE MD
== END 2017-03-22 19:15 | disposition home or self-care (01) ==
LOC: JER 14:40
DX: E11.65 Type 2 diabetes mellitus with hyperglycemia (principal); Z79.4 Long term (current) use of insulin; I10 Essential (primary) hypertension; E78.00 Pure hypercholesterolemia, unspecified
CPT/HCPCS: 36415; 71045-TC; 80053; 81003; 82009; 82550; 82553; 83735; 84484; 85025; 85610; 87070; 87077; 87205; 93005; 93010; 99284-25